=== PATIENT | male | born 1955 | race Caucasian/White ===

== ENCOUNTER → 2017-03-20 11:13 | Outpatient (CLI) | payer SELFPAY ==
--- NOTE | 2017-03-20 12:00 | PET_ITS ---
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 COMPARISON EXAMINATION: CT of the abdomen and pelvis report dated 02/08/17 INDEX LESION SIZE SUV INTERPRETATION Left upper abdomen, gastric fundus, pancreatic body-tail, heterogeneous 55.1 x 59.3-mm (largest) (frame 172) 6.7 (max) Fulfills quantitative criteria for viable neoplasm Right lower posteromedial lung zone 8.9-mm (frame 207) 3.4 Fulfills quantitative criteria for viable neoplasm NON-INDEX LESION SIZE SUV INTERPRETATION Subcarinal mediastinum 1.5 Quantitative criteria for viable neoplasm are not fulfilled Right lateral neck level II-A 2.4 Associated with fatty hilus formation, most consistent with reactive adenopathy TECHNIQUE: Following the intravenous administration of 14.59 mCi of F-18 deoxyglucose via the left antecubital fossa, multiplanar image acquisitions of the neck, chest, abdomen and pelvis to level of mid thigh, obtained at one hour post radiopharmaceutical administration contemporaneously interpreted with the current CT of the neck, chest, abdomen and pelvis to level of mid thigh, dated 03/20/[address] of the abdomen and pelvis report dated 02/08/17 reveal: SERUM GLUCOSE LEVEL: 107 mg/dl. HEIGHT: 72 inches. WEIGHT: 190 lbs. FINDINGS: 1. Heterogeneous enhanced glucose metabolism is manifest in the left upper abdomen which appears to involve the gastric fundus extending caudally to the pancreatic body-tail. The corrected maximum calculated standard uptake value is 6.7. The maximal axial diameter of the corresponding metabolic, morphologic abnormality on review of CT of the abdomen dated 03/20/17 is 55.1-mm (transverse) x 59.3-mm (AP). 2. Focal increased glucose concentration is demonstrated in the right lower posteromedial hemithorax pulmonary parenchyma generating a corrected maximum calculated standard uptake value of 3.4. The maximal axial diameter of the corresponding parenchymal density on review of CT of the thorax dated 03/20/17 is 8.9-mm (transverse). 3. Mild increased glucose concentration appears evident in the subcarinal mediastinum to the right of the midline generating a corrected maximum calculated standard uptake value of 1.5. Quantitative criteria for centrally located thoracic/mediastinal viable neoplasm are not fulfilled. 4. Normal physiologic distribution of the radiopharmaceutical is apparent in the hepatic and splenic parenchyma, both renal units, bladder and visualized intestinal tract. The visualized portion of the cerebral cortex demonstrate symmetric and preserved glucose metabolism. Diffuse radiopharmaceutical concentration is noted in all four quadrants of the abdomen and pelvis. An asymmetric increase in glucose metabolism is manifest in the right lateral neck involving level II-A generating a corrected maximum calculated standard uptake value of 2.4. The corresponding soft tissue density appears to demonstrate fatty hilus formation on review of CT of the neck dated 03/20/17. Pertinent CT findings are as follows. CHEST: There are no parenchymal densities-nodules demonstrated in the right-left hemithorax manifesting quantitatively significant increased glucose metabolism. Bilateral axillary soft tissue densities are ametabolic. Additional mediastinal soft tissue is non-glucose avid. ABDOMEN AND PELVIS: There is atherosclerotic calcification defined in the abdominal aorta without evidence of dilatation-aneurysm formation. Pelvic arterial calcification is observed. Dense calcifications are defined within the prostate gland without evidence of quantitatively significant enhanced glucose metabolism. Subcentimeter bilateral inguinal soft tissue densities are ametabolic. Cortical cyst formation is demonstrated in the left kidney with a maximal axial diameter of 31.7-mm (AP). SKELETAL: Degenerative changes are noted in the cervical, thoracic and lumbar spine. PET/PET/CT Tumor Base -Thigh Init IMPRESSION: 1. ABNORMAL EXAMINATION INDICATIVE OF MALIGNANT VIABLE NEOPLASM. 2. Increased glucose concentration observed in the left upper abdomen extending from the distribution of the gastric fundus caudally to the pancreatic body-tail fulfills quantitative criteria for viable neoplasm. 3. Enhanced glucose concentration observed in the right lower posteromedial lung zone fulfills quantitative criteria for viable neoplasm. (Edwards et al, Annals of Internal Medicine, 138:724, 2003). 4. The mediastinal increase in glucose concentration does not fulfill quantitative criteria for viable neoplasm. 5. Asymmetric increased glucose concentration observed in the right lateral neck involving level IIA associated with fatty hilus formation on review of CT of the neck dated 03/20/17 is most consistent with a component of reactive adenopathy. Electronic Signature Rei Larson D.O. Electronically Signed: Rei Larson DO at 17:17 EST Tel , Service support ,
== END ==
PROVIDERS: Family Provider Family Medicine; PCP Family Medicine
DX: C20 Malignant neoplasm of rectum (principal)
CPT/HCPCS: 78815; 99211; A9552; A4216; G0463

== ENCOUNTER 2017-04-18 13:00 | Inpatient (IN) | payer OTHER, SELFPAY ==
[2017-04-18] VITALS (7 sets, daily range): BP systolic 60–102; BP diastolic 33–77; PULSE 100–128; RESP 13–22; TEMP 36.8–37.4; O2SAT 95–99; BMI 23.7
--- NOTE | 2017-04-18 13:47 | EKG12_ITS ---
Test Reason : Blood Pressure : / mmHG Vent. Rate : 119 BPM Atrial Rate : 119 BPM P-R Int : 126 ms QRS Dur : 088 ms QT Int : 354 ms P-R-T Axes : 080 057 038 degrees QTc Int : 497 ms Sinus tachycardia Nonspecific ST and T wave abnormality Abnormal ECG Confirmed by COLT CHAIREZ, HODA ([id number]), visual effects editor MARIANELA DIAL ([id number]) on 04/19/2017 2:27:43 PM Referred By: GIRISH Confirmed By:HODA GREGORY MD
--- NOTE | 2017-04-18 13:50 | RAD_ITS ---
STUDY: X-RAY CHEST REASON FOR EXAM: Male, 61 years old. Cough. Dehydration. The patient is on chemotherapy. TECHNIQUE: Single AP portable view of the chest. COMPARISON: None. FINDINGS: EKG electrodes are seen. A left-sided portacatheter is in situ. The tip is at the junction of the superior vena cava and right atrium. The lungs are clear and expanded. There is no demonstrated pleural abnormality. Normal size heart. Normal mediastinum and gama. There is prominence of the pulmonary hilar arteries without peripheral pulmonary vascular congestion, suggesting pulmonary hypertension. Normal visualized aortic arch and descending thoracic aorta. Normal visualized thoracic spine. Normal visualized ribs, clavicles, and shoulders. There is no demonstrated abnormality of the visualized soft tissue structures of the upper abdomen. RAD/Chest 1 View (Portable) IMPRESSION: No acute abnormality is seen. Electronically Signed: Kris Britt MD at 14:13 EST Tel [phone], Service support ,
[2017-04-18 14:07] LABS: Absolute Lymphocyte Count 0.52 X10^3/ul (0.83-4.51); Absolute Neutrophil Count 1.1 X10^3/uL (2.0-7.7); Differential Indicated SCAN CRITERIA MET; Eosinophil# 0.01 X10^3/uL; Eosinophils% 0.6 % (0-5); Hematocrit 49.7 % (40-54); Hemoglobin 17.1 g/dl (13.0-16.5); Lymphocyte # 0.52 X10^3/ul (4.0); Lymphocyte % 31.5 % (19-41); Mean Corp Hgb Conc 34.4 g/gl (32-36); Mean Corpuscular Hgb 31.7 pg (27.0-32.0); Mean Corpuscular Volume 92.2 fL (80-94); Neutrophil % 66.7 % (47-70); POSITIVE COUNT NO; POSITIVE DIFFERENTIAL YES; POSITIVE MORPHOLOGY NO; Platelet Count 53 K/mm3 (150-450); RBC Distribution Width CV 13.8 % (11.6-14.6); RBC Distribution Width SD 46.1 fl (35.1-43.9); Red Blood Count 5.39 M/mm3 (4.6-6.2); White Blood Count 1.7 K/mm3 (4.4-11.0)
[2017-04-18] MEDS: 0.9% Normal Saline 1,000 ML IV.SOLN. 3000 ML IV (14:07)
[2017-04-18 14:10] LABS: International Normalized Ratio 1.5; Prothrombin Time (Protime)PT. 17.8 SECONDS (11.7-14.9)
[2017-04-18 14:11] LABS: Partial Thromboplast Time 31.3 Seconds (24.1-36.2)
[2017-04-18 14:13] LABS: Lactic Acid 1.5 mmol/L (0.4-2.0)
[2017-04-18 14:14] LABS: ALB/GLOB Ratio 1.1 RATIO (0.9-2.4); AST(SGOT) 16 U/L (15-37); Alanine Aminotransfer ALT/SGPT 72 U/L (16-61); Albumin, Serum 3.3 g/dL (3.2-5.0); Alkaline Phosphatase 168 U/L (45-117); Anion Gap 10 (5-15); BUN 87 mg/dL (7-18); BUN/Creat Ratio 50.9 RATIO (10-20); Calcium,Total 8.2 mg/dL (8.5-10.1); Chloride 106 mmol/L (98-107); Creatinine, Serum 1.71 mg/dL (0.70-1.30); EST Glomerular Filtration Rate 44 mL/min (>60); Est Glom Filt Rate - Afr Amer 53 mL/min (>60); Estimated Creatinine Clearance 49.54 ml/min; Globulin 3.1 g/dL (2.2-4.2); Glucose 187 mg/dL (74-106); Potassium 4.1 mmol/L (3.5-5.1); Protein, Total 6.4 g/dL (6.4-8.2); Sodium Level 138 mmol/L (136-145)
[2017-04-18] MEDS: fentaNYL 100 MCG/2 ML Ampul 50 MCG IV (15:43)
--- NOTE | 2017-04-18 15:45 | ED.VISSUMM ---
- ER Visit Summary Date of Service: 04/18/17 Chief Complaint: Thrush History of Present Illness: The patient is a 61 M with rectal and pancreatic cancer. He had his first chemo treatment and developed some mouth pain. His oncologist called to notify us that he was coming to the ED. It looks like he has mucositis and oral thrush. He is also not eating or drinking much and there is concern for dehydration. Physical Examination: Blood pressure 60/33. Heart rate 111. Afebrile. Respiratory rate 14 and pulse ox 97% on room air. The patient is sitting upright and appears in no acute distress. Patient has oral erythema and ulceration. He also has white discharge. Tachycardic. Lungs clear. Abdomen soft. Skin otherwise fairly unremarkable. Alert and oriented. Mentating well. Test Results: EKG showed sinus rhythm at a rate of [address] and T-wave changes. Chest x-ray showed no acute findings. White count 1.7 and hemoglobin 17.1. Platelets 53. Glucose 187, BUN 87, creatinine 1.71. Alk phos 168 and ALT 72. INR 1.5 and PTT normal. Troponin normal. Lactate 1.5. Emergency Department Course and Treatment: Patient was treated with fluids, 3 L. He also received Diflucan IV and fentanyl IV. Heart rate is staying in the 110s, but systolic blood pressure is in the 90s and maps have been above 65 since he started fluids. Patient will need admission to the hospital for further care. I spoke with the hospitalist who will admit. Most recent SBP 103 after fluids. Treatment Plan: As above, continue fluids, monitoring, and IV Diflucan Disposition: Admission Impression: 1. Mucositis 2. Oral thrush 3. Dehydration This note was generated with [employer] software. It may contain incorrect words, spelling, and punctuation that were not noted in review of the chart prior to signing ED Disposition - Plan for ED Patient: Chief Complaint: General Illness
--- NOTE | 2017-04-18 15:49 | ED.DCSUM_ITS ---
- ER Visit Summary Date of Service: 04/18/17 Chief Complaint: Thrush History of Present Illness: The patient is a 61 M with rectal and pancreatic cancer. He had his first chemo treatment and developed some mouth pain. His oncologist called to notify us that he was coming to the ED. It looks like he has mucositis and oral thrush. He is also not eating or drinking much and there is concern for dehydration. Physical Examination: Blood pressure 60/33. Heart rate 111. Afebrile. Respiratory rate 14 and pulse ox 97% on room air. The patient is sitting upright and appears in no acute distress. Patient has oral erythema and ulceration. He also has white discharge. Tachycardic. Lungs clear. Abdomen soft. Skin otherwise fairly unremarkable. Alert and oriented. Mentating well. Test Results: EKG showed sinus rhythm at a rate of [address] and T -wave changes. Chest x-ray showed no acute findings. White count 1.7 and hemoglobin 17.1. Platelets 53. Glucose 187, BUN 87, creatinine 1.71. Alk phos 168 and ALT 72. INR 1.5 and PTT normal. Troponin normal. Lactate 1.5. Emergency Department Course and Treatment: Patient was treated with fluids, 3 L. He also received Diflucan IV and fentanyl IV. Heart rate is staying in the 110s, but systolic blood pressure is in the 90s and maps have been above 65 since he started fluids. Patient will need admission to the hospital for further care. I spoke with the hospitalist who will admit. Most recent SBP 103 after fluids. Treatment Plan: As above, continue fluids, monitoring, and IV Diflucan Disposition: Admission Impression: 1. Mucositis 2. Oral thrush 3. Dehydration This note was generated with [employer] software. It may contain incorrect words, spelling, and punctuation that were not noted in review of the chart prior to signing ED Disposition - Plan for ED Patient: Chief Complaint: General Illness
--- NOTE | 2017-04-18 16:21 | ECHOCS_ITS ---
Reason For Study: Arrhythmia Procedure This was a 2D Doppler, Color Flow transthoracic echocardiogram. The study was technically limited. The study was technically difficult. Exam performed portable in ICU/CCU. Left Ventricle Normal size and thickness. The estimated ejection fraction is 60 %. Septal motion consistent with IVCD. No regional wall motion abnormalities noted. Right Ventricle Normal size and thickness. Normal systolic function. Atria Normal left atrium. Normal right atrium. Normal atrial septum. Mitral Valve The mitral valve is structurally normal. No prolapse or stenosis seen. Tricuspid Valve Normal tricuspid valve. Unable to estimate RV systolic pressure/pulmonary artery pressure due to technically difficult study. Aortic Valve Normal aortic valve. Trisinus/trileaflet aortic valve. Pulmonic Valve Normal pulmonic valve. Great Vessels Normal aortic root. Normal arch. Normal inferior vena cava. Inferior vena cava collapse with sniff. Pericardium/Pleural No pericardial effusion. Medication Definity0.3ml given slow IV push to enhance endocardial definition. MMode/2D Measurements & Calculations RVDd: 2.9 cm Ao root diam: 3.2 cm LAV(MOD-sp4): 16.7 ml LA A4 area: 10.4 cm2 RA A4 area: 12.7 cm2 Doppler Measurements & Calculations MV E max naveed: 58.5 cm/sec Lat Peak E' Naveed: 11.4 cm/sec Med Peak E' Naveed: 5.9 cm/sec MV A max naveed: 100.4 cm/sec E/E' lat: 5.1 E/E' med: 10.0 MV E/A: 0.58 Ao V2 max: 110.0 cm/sec LV V1 max: 77.4 cm/sec Ao max P.8 mmHg LV V1 max P.4 mmHg Interpretation Summary The estimated ejection fraction is 60 %. Unable to estimate RV systolic pressure/pulmonary artery pressure due to technically difficult study. The study was technically difficult. Contrast injection was performed. There is no comparison study available. Ordering Physician: Andrade Blount Referring Physician: JENN DIAZ Performed By: Sandee Guerin RDCS
--- NOTE | 2017-04-18 16:26 | HP.PCM_ITS ---
<Andrade Blount - Last Filed: 04/18/17 16:15> Problem List (1) Sepsis Status: Acute (2) Thrush of mouth and esophagus Status: Acute (3) AURELIA (acute kidney injury) Status: Acute (4) Neutropenia Status: Chronic (5) Pancreatic cancer Status: Chronic (6) Thrombocytopenia Status: Chronic (7) Rectal cancer Status: Chronic History of Present Illness Date of Admission: 04/18/17 Chief Complaint: Mouth pain The patient is a 61 year old M with a hx of pancreatic and rectal cancer, pt of Doctor Bobby s/p first chemo session on 04/10 who subsequently went home and developed mouth pain the following day. He had started taking nystatin orally with no relief. The pain is in both his mouth and throat, has severely worsened to the point where he cannot swallow and cannot eat or drink 2/2 pain. He has heavy mucus production and is spitting frequently. He denies fevers or chills. He denies Nausea, vomiting, or abdominal pain, he has had several episodes of diarrhea. He has tachycardia, but denies palp and denies any underlying heart disease. He has no SOB or cough. He was hypotensive at presentation which seems to have improved with IV fluids administration. He also has AURELIA and denies hx of Renal dz. [] Past Medical History Past Medical History (Chronic Problems): Chronic Problems Neutropenia (Chronic) Pancreatic cancer (Chronic) Thrombocytopenia (Chronic) Rectal cancer (Chronic) Allergies No Known Allergies Allergy (Verified 04/18/17 13:42) Home Medications: Ambulatory Orders Medication Instructions Recorded Acetaminophen [Tylenol Extra 1,000 mg PO Q6H PRN 04/18/17 Strength] Docusate Sodium [Colace] 100 mg PO BID PRN PRN 04/18/17 Nystatin 5 ml PO 4X/DAY PRN 04/18/17 Olanzapine [Zyprexa] 10 mg PO QHS 04/18/17 Ondansetron HCl [Zofran] 4 mg PO Q8H PRN PRN 04/18/17 Oxycodone [Oxyir] 1 - 2 tab PO Q4H PRN PRN 04/18/17 Surgical History: - - childhood surgery for undescended testicle. Psychiatric History: Depression Lives: Spouse/ Significant Other Smoking Status: Former smoker Tobacco Use: Non-smoker Alcohol: None Drugs: None - *Family History Maternal History Items: Cancer Sibling History Items: Cancer - x 2 sisters and a brother Review of Systems Constitutional: Reports: Weakness. Denies: Chills, Fever, Weight Change HEENT: Reports: Difficulty Swallowing, - - mouth pain, mouth mucus production, throat pain, painful swallowing.. Denies: Head Aches, Sinus Congestion, Sinus Drainage Cardiovascular: Denies: Chest Pain, Palpitations Respiratory: Denies: Cough, Shortness of breath at rest, Sputum production Gastrointestinal: Denies: Abdominal Pain, Nausea, Vomiting Genitourinary: Denies: Dysuria Musculoskeletal: Denies: Joint Pain, Joint Tenderness Skin: Denies: Rash, Wounds Neurological: Denies: Numbness, Tingling, Focal weakness Psychiatric: Denies: Anxiety, Depression, Homicidal Ideations, Suicidal Ideations Hematologic/ Lymphatic: Denies: Easy Bruising, Easy Bleeding VTE Information - Inpt Only VTE Present on Admission: No VTE Mechan Device Prophylaxis: SCD's VTE Pharm Prophylaxis ordered?: No Reason prophylaxis not ordered:: Medical Contraindication Patient Problems: Active and Suspected Problems Sepsis (Acute) Thrush of mouth and esophagus (Acute) AURELIA (acute kidney injury) (Acute) - Physical Exam General: Alert, Oriented x3, Cooperative HEENT: Atraumatic, PERRLA, EOMI, Normocephalic Oral: Ulcerations Present - beefy erythematous rash, white plaques, moist. Neck: Supple, No JVD, Negative Carotid Bruits Lungs: Clear to auscultation, Normal air movement Cardiovascular: Regular rate, No murmurs Abdomen: Bowel Sounds Present, Soft, Non Tender Extremities: No edema, Capillary Refill Less than 3 Seconds Skin: No rashes, No breakdown Musculoskeletal: No Tenderness to Palpation of Joints or Extremities Neurological: Cranial nerves II-XII grossly intact Psych/Mental Status: Normal Affect, Appropriate, Alert and oriented to time, place, person, mood and affect Vital Signs Temp Pulse Resp BP Pulse Ox 98.2 F 115 H 18 91/77 99 04/18/17 13:01 04/18/17 15:21 04/18/17 15:21 04/18/17 15:21 04/18/17 14:08 Oxygen Flow Rate 2 Oxygen Delivery Method Room Air Weight: 77.111 kg Body Mass Index (BMI) 23.7 Laboratory Tests Past 24 Hrs 04/18/17 04/18/17 04/18/17 13:30 13:30 13:30 WBC 1.7 L RBC 5.39 Hgb 17.1 H Hct 49.7 MCV 92.2 MCH 31.7 MCHC 34.4 RDW 13.8 RDW Differential 46.1 H Plt Count 53 L MPV 11.0 Immature Gran % (Auto) 1.200 H Neut % (Auto) 66.7 Lymph % (Auto) 31.5 Barren % (Auto) 0.0 Eos % (Auto) 0.6 Baso % (Auto) 0.0 Absolute Neuts (auto) 1.1 L Absolute Lymphs (auto) 0.52 L Total Counted Not Reportable Differential Comment COMMENT Diff Path Review June foll PT 17.8 H INR 1.5 APTT 31.3 Sodium 138 Potassium 4.1 Chloride 106 Carbon Dioxide 22.0 Anion Gap 10 BUN 87 H Creatinine 1.71 H Estim Creat Clear Calc 49.54 Est GFR (MDRD) Af Amer 53 L Est GFR (MDRD) Non-Af 44 L BUN/Creatinine Ratio 50.9 H Glucose 187 H Lactic Acid Calcium 8.2 L Total Bilirubin 0.90 AST 16 ALT 72 H Alkaline Phosphatase 168 H Troponin I < 0.02 Total Protein 6.4 Albumin 3.3 Globulin 3.1 Albumin/Globulin Ratio 1.1 04/18/17 13:30 WBC RBC Hgb Hct MCV MCH MCHC RDW RDW Differential Plt Count MPV Immature Gran % (Auto) Neut % (Auto) Lymph % (Auto) Barren % (Auto) Eos % (Auto) Baso % (Auto) Absolute Neuts (auto) Absolute Lymphs (auto) Total Counted Differential Comment Diff Path Review PT INR APTT Sodium Potassium Chloride Carbon Dioxide Anion Gap BUN Creatinine Estim Creat Clear Calc Est GFR (MDRD) Af Amer Est GFR (MDRD) Non-Af BUN/Creatinine Ratio Glucose Lactic Acid 1.5 Calcium Total Bilirubin AST ALT Alkaline Phosphatase Troponin I Total Protein Albumin Globulin Albumin/Globulin Ratio Assessment/Plan Active and Suspected Problems Sepsis (Acute) Thrush of mouth and esophagus (Acute) AURELIA (acute kidney injury) (Acute) 1. Neutropenic sepsis 2/2 oral and esophageal thrush - continue nystatin and diflucan. Add BMX solution. ID consult. Afebrile. Leukopenic/Neutropenic. Tachycardic. Hypotensive at presentation which responded to fluid resuscitation. Check echo in AM. EKG sinus tach. Trop neg. Lactate neg. Blood cultures pending. 2. AURELIA - IV fluids. dehydrated. Not eating or drinking 2/2 throat pain. 3. Neutropenia - 2/2 chemo add neutropenic precautions. Abs neutos 1.1. WBC 1.7. 4. Pancreatic / Rectal cancer s/p 1st round chemo with Dr. Rosales on 04/10. Consult to Dr. Rosales. 5. Thrombocytopenia 2/2 chemo - avoid heparin products 6. Depression - on zyprexa DVT ppx: SCDs This patient was seen by Andrade Blount PA-C under the supervision of Doctor Francisco. <Tia Singh - Last Filed: 04/18/17 17:19> History of Present Illness The patient is a 61 year old M [] Past Medical History Allergies No Known Allergies Allergy (Verified 04/18/17 13:42) - Physical Exam Vital Signs Temp Pulse Resp BP Pulse Ox 98.2 F 115 H 18 91/77 99 04/18/17 13:01 04/18/17 15:21 04/18/17 15:21 04/18/17 15:21 04/18/17 14:08 Assessment/Plan This patient was seen in conjunction with NAJMA Ashford. I have independently interviewed and examined the patient and reviewed pertinent historical, laboratory, and other data. Please refer to NAJMA Ashford note for his patient's presentation, findings, and recommendations. I have reviewed and his note and concur. Patient comes in with complaints of pain on swallowing, status post chemotherapy in 10 April, denies any fever or chills, follows Dr. Rosales in the outpatient Physical Exam: Gen: Looks in some discomfort, not pale, not jaundiced, sores on the face EENT: Erythema of oral mucosa with oropharyngeal candidal plaques especially on the roof of the tongue CVS:HS I +II, regular,tachycardic RESP: Diminished at lung bases GI: Full, soft, nontender, no ballotable organs EXT:No edema ASSESSMENT: 1. Neutropenic sepsis 2. Oral mucositis/oropharyngeal thrush 3. AURELIA secondary to dehydration 4. Thrombocytopenia secondary to chemotherapy 5. Pancreatic and rectal cancer 6. Depression Plan: Admitted to Medsurg floor, pain control, IV fluids, IV Diflucan, nystatin swish and swallow, oncology consult, ID consult Zyprexa in the light of neutropenia/pancytopenia Code Visit Inpatient E&M: 95851 Init Hosp L3
[2017-04-18] MEDS: 0.9% Normal Saline 1,000 ML 1000 ML IV (17:40)
[2017-04-18] MEDS: 0.9% Normal Saline 1,000 ML 125 ML IV (18:49)
[2017-04-19] VITALS (28 sets, daily range): BP systolic 76–129; BP diastolic 55–84; PULSE 117–131; RESP 15–26; TEMP 36.6–38; O2SAT 96–100
[2017-04-19] MEDS: 0.9% Normal Saline 1,000 ML 125 ML IV (03:51)
[2017-04-19] MEDS: 0.9% Normal Saline 1,000 ML 999 ML IV (04:20)
[2017-04-19] MEDS: 0.9% Normal Saline 1,000 ML 250 ML IV ×2 (05:21→09:20)
[2017-04-19 06:57] LABS: Absolute Lymphocyte Count 0.27 X10^3/ul (0.83-4.51); Hematocrit 43.4 % (40-54); Hemoglobin 14.9 g/dl (13.0-16.5); Lymphocyte # 0.27 X10^3/ul (4.0); Lymphocyte % 81.8 % (19-41); Mean Corp Hgb Conc 34.3 g/gl (32-36); Mean Corpuscular Hgb 31.4 pg (27.0-32.0); Mean Corpuscular Volume 91.6 fL (80-94); Mean Platelet Vol. 12.2 fl (6.2-12.0); Monocyte# 0.02 X10^3/uL; Monocyte% 6.1 % (0-10); Neutrophil # 0.04 X10^3/uL (2.7-7.7); Neutrophil % 12.1 % (47-70); RBC Distribution Width CV 13.9 % (11.6-14.6); RBC Distribution Width SD 46.3 fl (35.1-43.9); Red Blood Count 4.74 M/mm3 (4.6-6.2)
[2017-04-19 07:00] LABS: Differential Indicated SCAN CRITERIA MET; POSITIVE COUNT YES; POSITIVE DIFFERENTIAL YES; POSITIVE MORPHOLOGY YES; Platelet Count 34 K/mm3 (150-450); White Blood Count 0.3 K/mm3 (4.4-11.0)
[2017-04-19 07:10] LABS: Anion Gap 11 (5-15); BUN 55 mg/dL (7-18); BUN/Creat Ratio 59.3 RATIO (10-20); Calcium,Total 7.4 mg/dL (8.5-10.1); Chloride 117 mmol/L (98-107); Creatinine, Serum 0.93 mg/dL (0.70-1.30); EST Glomerular Filtration Rate 89 mL/min (>60); Est Glom Filt Rate - Afr Amer 107 mL/min (>60); Estimated Creatinine Clearance 91.09 ml/min; Glucose 163 mg/dL (74-106); Sodium Level 146 mmol/L (136-145)
[2017-04-19 09:20] LABS: Hemoglobin A1c 6.4 % (4.2-6.3)
[2017-04-19 09:21] LABS: Magnesium 2.7 mg/dL (1.6-2.6)
[2017-04-19 09:27] LABS: Mucous, Urine 0 SEEN /hpf (<or=2+); Squamous Epithelial Cells - UA 0 SEEN /hpf (0-5); White Blood Cells 0 SEEN /hpf (0-5)
--- NOTE | 2017-04-19 09:31 | CON.PCM_ITS ---
Reason for Consult Date of Consultation: 04/19/17 Reason for Consultation: Sepsis/neutropenic fever History of Present Illness: The patient is a 61-year-old male, with a history as outlined below, who presented to the emergency department at the urging of his oncologist over concern for mucositis and oropharyngeal thrush. The patient has a history of rectal and pancreatic cancer. He is currently followed by Dr. Rosales of [facility]. The patient just received a chemotherapy treatment approximately 1 week ago and subsequently went on to develop mouth sores. The patient since that time has reported the presence of both dysphagia and odynophagia. He also recently had several episodes of diarrhea. On presentation to the emergency department, the patient was noted to be tachycardic, hypotensive, but was maintaining appropriate oxygen saturations initially on room air. Laboratory evaluation revealed a white blood cell count of 1700. Coagulation profile is within normal limits. Chemistry profile was notable for acute kidney injury with a creatinine 1.71. Serum lactate was normal at 1.5. Initial plain film chest x-ray revealed no acute cardiopulmonary process. The patient was initially started on Diflucan, nystatin and meropenem. He did receive overzealous fluid hydration. He was initially maintained on the general medical floor. However, on the morning of April 19, the patient was noted to be persistently hypotensive, despite aggressive fluid resuscitation. Therefore, he was transferred to the medical intensive care unit for ongoing management. Past Medical History Past Medical History (Chronic Problems): Chronic Problems Neutropenia (Chronic) Pancreatic cancer (Chronic) Thrombocytopenia (Chronic) Rectal cancer (Chronic) Allergies No Known Allergies Allergy (Verified 04/18/17 13:42) Home Medications: Ambulatory Orders Medication Instructions Recorded Acetaminophen [Tylenol Extra 1,000 mg PO Q6H PRN 04/18/17 Strength] Docusate Sodium [Colace] 100 mg PO BID PRN PRN 04/18/17 Nystatin 5 ml PO 4X/DAY PRN 04/18/17 Olanzapine [Zyprexa] 10 mg PO QHS 04/18/17 Ondansetron HCl [Zofran] 4 mg PO Q8H PRN PRN 04/18/17 Oxycodone [Oxyir] 1 - 2 tab PO Q4H PRN PRN 04/18/17 Surgical History: - - childhood surgery for undescended testicle. Psychiatric History: Depression Lives: Spouse/ Significant Other Smoking Status: Former smoker Tobacco Use: Non-smoker Alcohol: None Drugs: None - *Family History Maternal History Items: Cancer Sibling History Items: Cancer - x 2 sisters and a brother Review of Systems Constitutional: Reports: Fever Eyes: Denies: Blurred vision, Double vision HEENT: Reports: Difficulty Swallowing Cardiovascular: Denies: Chest Pain, Palpitations Respiratory: Denies: Cough, Shortness of breath at rest, Sputum production Gastrointestinal: Reports: Diarrhea Genitourinary: Denies: Dysuria Musculoskeletal: Denies: Joint Pain, Joint Tenderness Skin: Denies: Rash, Wounds Neurological: Denies: Numbness, Tingling, Focal weakness Psychiatric: Denies: Anxiety, Depression, Homicidal Ideations, Suicidal Ideations Hematologic/ Lymphatic: Denies: Easy Bruising, Easy Bleeding Patient Problems: Active and Suspected Problems Sepsis (Acute) Thrush of mouth and esophagus (Acute) AURELIA (acute kidney injury) (Acute) Objective: The patient's most recent lab work, culture data and imaging studies have all been personally reviewed. Blood and urine cultures are pending. C. difficile is pending. Surface echocardiogram revealed normal LV size and thickness with an ejection fraction of 60%. - Physical Exam General: Alert, Cooperative, - - is present at the bedside. HEENT: Atraumatic, PERRLA, Normocephalic Oral: Ulcerations Present, - - Mucositis/thrush present Neck: Supple, No Nodes, Trachea Midline Lungs: Normal air movement, No rhonchi, No wheeze, No rales, - - Chest wall port in place Cardiovascular: Regular rate, Regular Rhythm, Normal S1, Normal S2, No murmurs Abdomen: Bowel Sounds Present, Soft, Non Tender Extremities: No clubbing, No cyanosis, No edema Skin: No rashes, No breakdown Musculoskeletal: No Tenderness to Palpation of Joints or Extremities Neurological: Neuro grossly intact Psych/Mental Status: Normal Affect, Appropriate Vital Signs Temp Pulse Resp BP Pulse Ox 97.9 F 120 H 16 84/55 L 100 04/19/17 08:21 04/19/17 08:26 04/19/17 08:21 04/19/17 08:21 04/19/17 08:26 Oxygen Delivery Method Room Air Weight: 172 lb 13.478 oz Body Mass Index (BMI) 23.7 Intake and Output for Last 24 Hours 04/17/17 04/18/17 04/19/17 23:59 23:59 23:59 Intake Total 3643 / 3643 Balance 3643 / 3643 Laboratory Tests Past 24 Hrs 04/19/17 04/19/17 04/19/17 05:56 05:56 05:56 WBC 0.3 L* RBC 4.74 Hgb 14.9 Hct 43.4 MCV 91.6 MCH 31.4 MCHC 34.3 RDW 13.9 RDW Differential 46.3 H Plt Count 34 L* MPV 12.2 H Immature Gran % (Auto) 0.000 Neut % (Auto) 12.1 L Lymph % (Auto) 81.8 H [place] % (Auto) 6.1 Eos % (Auto) 0.0 Baso % (Auto) 0.0 Absolute Neuts (auto) 0.0 L Absolute Lymphs (auto) 0.27 L Total Counted Not Reportable Differential Comment Diff Path Review May foll Sodium 146 H Potassium 4.0 Chloride 117 H Carbon Dioxide 18.0 L Anion Gap 11 BUN 55 H Creatinine 0.93 Estim Creat Clear Calc 91.09 Est GFR (MDRD) Af Amer 107 Est GFR (MDRD) Non-Af 89 BUN/Creatinine Ratio 59.3 H Glucose 163 H Hemoglobin A1c 6.4 H Calcium 7.4 L Phosphorus Magnesium Urine Color Urine Clarity Urine pH Ur Specific [place] Urine Protein Urine Glucose (UA) Urine Ketones Urine Occult Blood Urine Nitrite Urine Bilirubin Urine Urobilinogen Ur Leukocyte Esterase Urine RBC Urine WBC Ur Squamous Epith Cells Urine Bacteria Urine Mucus 04/19/17 04/19/17 04/19/17 05:56 05:56 09:15 WBC RBC Hgb Hct MCV MCH MCHC RDW RDW Differential Plt Count MPV Immature Gran % (Auto) Neut % (Auto) Lymph % (Auto) [place] % (Auto) Eos % (Auto) Baso % (Auto) Absolute Neuts (auto) Absolute Lymphs (auto) Total Counted Differential Comment Diff Path Review Sodium Potassium Chloride Carbon Dioxide Anion Gap BUN Creatinine Estim Creat Clear Calc Est GFR (MDRD) Af Amer Est GFR (MDRD) Non-Af BUN/Creatinine Ratio Glucose Hemoglobin A1c Calcium Phosphorus 2.0 L Magnesium 2.7 H Urine Color Pending Urine Clarity Pending Urine pH Pending Ur Specific [place] Pending Urine Protein Pending Urine Glucose (UA) Pending Urine Ketones Pending Urine Occult Blood Pending Urine Nitrite Pending Urine Bilirubin Pending Urine Urobilinogen Pending Ur Leukocyte Esterase Pending Urine RBC Pending Urine WBC Pending Ur Squamous Epith Cells Pending Urine Bacteria Pending Urine Mucus Pending Clinical Impression(s) from Imaging Studies Chest X-Ray 04/18/17 13:50 IMPRESSION: No acute abnormality is seen. Electronically Signed: Kris Britt MD at 14:13 EST Tel [phone], Service support , Assessment/Plan Active and Suspected Problems Sepsis (Acute) Thrush of mouth and esophagus (Acute) AURELIA (acute kidney injury) (Acute) RECOMMENDATIONS: 1. Continue antibiotics per ID recommendations. 2. Discontinue supplemental IV fluids. The patient has been more than adequately volume resuscitated. 3. If hypotension persists, recommend initiation of Levophed to maintain a mean arterial pressure at or above 65 mmHg. 4. Await oncology input 5. Patient to remain n.p.o. for now IMPRESSIONS: 1. Severe sepsis/neutropenic fever The patient recently received chemotherapy. He currently reports the presence of dysphasia and odynophagia. Continue broad-spectrum antibiotics per infectious disease recommendations, pending infectious workup. Blood, urine and C. difficile PCR pending. Discontinue supplemental IV fluids, as the patient has been more than adequately volume resuscitated and is currently hemodynamically stable. If the patient does become hypotensive, recommend initiation of Levophed to maintain a mean arterial pressure at or above 65 mmHg. Patient to remain n.p.o. for now. 2. Acute kidney injury, likely prerenal in etiology Improved following IV fluid hydration. Urine output is appropriate. No indication for renal replacement therapy at this time. 3. Personal history of pancreatic/rectal cancer/thrombocytopenia/depression Complicates care, management, recovery and prognosis. No active blood loss identified. Therefore, no indication for platelet transfusion. Continue to monitor accordingly. This note was generated with [employer] software. It may contain incorrect words, spelling, and punctuation that were not noted in checking the note before signing. Code Visit Inpatient E&M: 83701 Init Hosp L3
[2017-04-19 09:34] LABS: Color, Urine Yellow (Yellow); Glucose, Dipstick Normal (Normal); Ketone-Dipstick Negative (Negative); Leukocyte Esterase-Dipstick Negative /ul (Negative); Nitrite-Dipstick Negative (Negative); Occult Blood-Urine 50 /ul (Negative); Protein-Dipstick 30 mg/dl (Negative); Specific Gravity, Urine 1.015 (1.002-1.030); Urine Bilirubin Dipstick Negative (Negative); Urine Clarity Clear (Clear); Urine Urobilinogen Normal (Normal)
[2017-04-19 09:43] LABS: Bacteria RARE /hpf (None Seen); Red Blood Cells-Urine 0-5 SEEN /hpf (0-5)
--- NOTE | 2017-04-19 10:17 | RAD_ITS ---
STUDY: X-RAY CHEST REASON FOR EXAM: Male, 61 years old. Increasing shortness of breath. TECHNIQUE: Single AP portable view of the chest. COMPARISON: Comparison is made with prior study dated April 18, 2017. FINDINGS: A left-sided portacatheter is once again seen. The tip is at the junction of the superior vena cava and right atrium. The lungs are clear and expanded. There is no demonstrated pleural abnormality. Normal size heart. Normal mediastinum and gama. There is prominence of the pulmonary hilar arteries without peripheral pulmonary vascular congestion, suggesting pulmonary hypertension. Normal visualized aortic arch and descending thoracic aorta. There are degenerative changes of the visualized thoracic spine. Normal visualized ribs, clavicles, and shoulders. There is no demonstrated abnormality of the visualized soft tissue structures of the upper abdomen. RAD/Chest 1 View (Portable) IMPRESSION: No acute abnormality is seen. Electronically Signed: Kris Britt MD at 10:56 EST Tel [phone], Service support ,
[2017-04-19] MEDS: 0.9% NaCl Peripheral Flush Adult/Peds IV (10:32)
[2017-04-19 11:07] LABS: Lactic Acid 1.1 mmol/L (0.4-2.0)
--- NOTE | 2017-04-19 11:10 | CON.PCM_ITS ---
Problem List (1) Neutropenia Status: Chronic Reason for Consult: neutropenic fever Consulted by: Dr. Persaud History of Present Illness: The patient is a 61 year old M on chemo for pancreatic and rectal cancer. Last chemo was just over a week ago, developed mouth sores and pain 2-3 days later. Difficulty taking po and managing secretions. Over past 2 days, has also developed diarrhea, about 3-5 episodes per day. No recent abx, no h/o cdiff. No abd pain, no blood in stool. No cough/sob/dysuria/rash/myalgias. No issues with port. Came to ED, found to be neutropenic, started on fluconazole for mucositis, had temp to 100.4, and meropenem added. Mouth not feeling much better this AM. Full ROS performed and neg except as noted above. - Medical History Past Medical History (Chronic Problems): Chronic Problems Neutropenia (Chronic) Pancreatic cancer (Chronic) Thrombocytopenia (Chronic) Rectal cancer (Chronic) Allergies/Adverse Reactions: Allergies No Known Allergies Allergy (Verified 04/18/17 13:42) Home Medications: Ambulatory Orders Medication Instructions Recorded Acetaminophen [Tylenol Extra 1,000 mg PO Q6H PRN 04/18/17 Strength] Docusate Sodium [Colace] 100 mg PO BID PRN PRN 04/18/17 Nystatin 5 ml PO 4X/DAY PRN 04/18/17 Olanzapine [Zyprexa] 10 mg PO QHS 04/18/17 Ondansetron HCl [Zofran] 4 mg PO Q8H PRN PRN 04/18/17 Oxycodone [Oxyir] 1 - 2 tab PO Q4H PRN PRN 04/18/17 - Social History SMOKING STATUS:: Former smoker Vital Signs Temp Pulse Resp BP Pulse Ox 98.5 F 131 H 26 H 94/70 98 04/19/17 09:45 04/19/17 11:00 04/19/17 11:00 04/19/17 11:00 04/19/17 11:00 Oxygen Delivery Method Room Air Weight: 78.4 kg Body Mass Index (BMI) 23.7 Laboratory Tests Past 24 Hrs 04/19/17 04/19/17 04/19/17 05:56 05:56 05:56 WBC 0.3 L* RBC 4.74 Hgb 14.9 Hct 43.4 MCV 91.6 MCH 31.4 MCHC 34.3 RDW 13.9 RDW Differential 46.3 H Plt Count 34 L* MPV 12.2 H Immature Gran % (Auto) 0.000 Neut % (Auto) 12.1 L Lymph % (Auto) 81.8 H [place] % (Auto) 6.1 Eos % (Auto) 0.0 Baso % (Auto) 0.0 Absolute Neuts (auto) 0.0 L Absolute Lymphs (auto) 0.27 L Total Counted Not Reportable Differential Comment Diff Path Review May foll Sodium 146 H Potassium 4.0 Chloride 117 H Carbon Dioxide 18.0 L Anion Gap 11 BUN 55 H Creatinine 0.93 Estim Creat Clear Calc 91.09 Est GFR (MDRD) Af Amer 107 Est GFR (MDRD) Non-Af 89 BUN/Creatinine Ratio 59.3 H Glucose 163 H Hemoglobin A1c 6.4 H Lactic Acid Calcium 7.4 L Phosphorus Magnesium Urine Color Urine Clarity Urine pH Ur Specific [place] Urine Protein Urine Glucose (UA) Urine Ketones Urine Occult Blood Urine Nitrite Urine Bilirubin Urine Urobilinogen Ur Leukocyte Esterase Urine RBC Urine WBC Ur Squamous Epith Cells Urine Bacteria Urine Mucus 04/19/17 04/19/17 04/19/17 05:56 05:56 09:15 WBC RBC Hgb Hct MCV MCH MCHC RDW RDW Differential Plt Count MPV Immature Gran % (Auto) Neut % (Auto) Lymph % (Auto) [place] % (Auto) Eos % (Auto) Baso % (Auto) Absolute Neuts (auto) Absolute Lymphs (auto) Total Counted Differential Comment Diff Path Review Sodium Potassium Chloride Carbon Dioxide Anion Gap BUN Creatinine Estim Creat Clear Calc Est GFR (MDRD) Af Amer Est GFR (MDRD) Non-Af BUN/Creatinine Ratio Glucose Hemoglobin A1c Lactic Acid Calcium Phosphorus 2.0 L Magnesium 2.7 H Urine Color Yellow Urine Clarity Clear Urine pH 6.0 Ur Specific [place] 1.015 Urine Protein 30 H Urine Glucose (UA) Normal Urine Ketones Negative Urine Occult Blood 50 H Urine Nitrite Negative Urine Bilirubin Negative Urine Urobilinogen Normal Ur Leukocyte Esterase Negative Urine RBC 0-5 SEEN Urine WBC 0 SEEN Ur Squamous Epith Cells 0 SEEN Urine Bacteria RARE Urine Mucus 0 SEEN 04/19/17 10:25 WBC RBC Hgb Hct MCV MCH MCHC RDW RDW Differential Plt Count MPV Immature Gran % (Auto) Neut % (Auto) Lymph % (Auto) [place] % (Auto) Eos % (Auto) Baso % (Auto) Absolute Neuts (auto) Absolute Lymphs (auto) Total Counted Differential Comment Diff Path Review Sodium Potassium Chloride Carbon Dioxide Anion Gap BUN Creatinine Estim Creat Clear Calc Est GFR (MDRD) Af Amer Est GFR (MDRD) Non-Af BUN/Creatinine Ratio Glucose Hemoglobin A1c Lactic Acid Pending Calcium Phosphorus Magnesium Urine Color Urine Clarity Urine pH Ur Specific [place] Urine Protein Urine Glucose (UA) Urine Ketones Urine Occult Blood Urine Nitrite Urine Bilirubin Urine Urobilinogen Ur Leukocyte Esterase Urine RBC Urine WBC Ur Squamous Epith Cells Urine Bacteria Urine Mucus - Other Studies Radiology: [] reviewed Other Studies: [] Route of nutrition/ use of supplements: [] Nutritional Intake: [] IV Site: [] Morgan Catheter: [] - Physical Exam General: Alert, Oriented x3, Cooperative, - - ill appearing HEENT: Atraumatic, - - diffuse mucositis Neck: Supple, No Nodes Lungs: Clear to auscultation, Normal air movement Cardiovascular: No murmurs, Tachycardic Abdomen: Bowel Sounds Present, Soft, Non Tender, Non-Distended Extremities: No edema Skin: No rashes IV Site: Central Line, without redness Musculoskeletal: No Tenderness to Palpation of Joints or Extremities Neurological: Cranial nerves II-XII grossly intact - Assessment/Plan Antibiotics: [] Assessment/Plan: [] Active and Suspected Problems Sepsis (Acute) Thrush of mouth and esophagus (Acute) AURELIA (acute kidney injury) (Acute) Neutropenic fever with thrush and recent chemo. Port in place, so will add vanc while cxs pending. AURELIA improved. On fluconazole and nystatin for thrush/ mucositis. Cont empiric meropenem. Given diarrhea, will check cdiff. Thank you, will follow, d/w nursing.
--- NOTE | 2017-04-19 12:09 | PCM.PROGNOTE ---
Patient Problems: Active and Suspected Problems Sepsis (Acute) Thrush of mouth and esophagus (Acute) AURELIA (acute kidney injury) (Acute) Subjective: Patient continues to have significant mouth discomfort and mucus production spitting frequently. No nausea or vomiting. He does not feel any subjective fevers or chills. He has had low blood pressure overnight and does have dizziness. He is going to attempt to eat today as a medical mouthwash has improved his oral pain a little bit. He will be transferred to the ICU today as he is remained hypotensive after 6 L of fluid overnight. He did develop a fever overnight as well. No shortness of breath or cough at this time. No abdominal pain, he does continue to have diarrhea this morning. - Physical Exam General: Alert, Oriented x3, Cooperative HEENT: Atraumatic, PERRLA, EOMI, Normocephalic Oral: Ulcerations Present - mucosal lesions, white on beefy red base. COpious mucous production, spitting frequently Neck: Supple, No JVD, Negative Carotid Bruits Lungs: Clear to auscultation, Normal air movement Cardiovascular: Regular rate, No murmurs Abdomen: Bowel Sounds Present, Soft, Non Tender Extremities: No edema, Capillary Refill Less than 3 Seconds Skin: No rashes, No breakdown Musculoskeletal: No Tenderness to Palpation of Joints or Extremities Neurological: Cranial nerves II-XII grossly intact Psych/Mental Status: Normal Affect, Appropriate, Alert and oriented to time, place, person, mood and affect Vital Signs Temp Pulse Resp BP Pulse Ox 98.5 F 131 H 26 H 94/70 98 04/19/17 09:45 04/19/17 11:00 04/19/17 11:00 04/19/17 11:00 04/19/17 11:00 Oxygen Delivery Method Room Air Weight: 80.5 kg Body Mass Index (BMI) 23.7 Intake and Output for Last 24 Hours 04/17/17 04/18/17 04/19/17 23:59 23:59 23:59 Intake Total 3643 / 3643 Balance 3643 / 3643 Laboratory Tests Past 24 Hrs 04/19/17 04/19/17 04/19/17 05:56 05:56 05:56 WBC 0.3 L* RBC 4.74 Hgb 14.9 Hct 43.4 MCV 91.6 MCH 31.4 MCHC 34.3 RDW 13.9 RDW Differential 46.3 H Plt Count 34 L* MPV 12.2 H Immature Gran % (Auto) 0.000 Neut % (Auto) 12.1 L Lymph % (Auto) 81.8 H [place] % (Auto) 6.1 Eos % (Auto) 0.0 Baso % (Auto) 0.0 Absolute Neuts (auto) 0.0 L Absolute Lymphs (auto) 0.27 L Total Counted Not Reportable Differential Comment Diff Path Review May foll Sodium 146 H Potassium 4.0 Chloride 117 H Carbon Dioxide 18.0 L Anion Gap 11 BUN 55 H Creatinine 0.93 Estim Creat Clear Calc 91.09 Est GFR (MDRD) Af Amer 107 Est GFR (MDRD) Non-Af 89 BUN/Creatinine Ratio 59.3 H Glucose 163 H Hemoglobin A1c 6.4 H Lactic Acid Calcium 7.4 L Phosphorus Magnesium Urine Color Urine Clarity Urine pH Ur Specific [place] Urine Protein Urine Glucose (UA) Urine Ketones Urine Occult Blood Urine Nitrite Urine Bilirubin Urine Urobilinogen Ur Leukocyte Esterase Urine RBC Urine WBC Ur Squamous Epith Cells Urine Bacteria Urine Mucus 04/19/17 04/19/17 04/19/17 05:56 05:56 09:15 WBC RBC Hgb Hct MCV MCH MCHC RDW RDW Differential Plt Count MPV Immature Gran % (Auto) Neut % (Auto) Lymph % (Auto) [place] % (Auto) Eos % (Auto) Baso % (Auto) Absolute Neuts (auto) Absolute Lymphs (auto) Total Counted Differential Comment Diff Path Review Sodium Potassium Chloride Carbon Dioxide Anion Gap BUN Creatinine Estim Creat Clear Calc Est GFR (MDRD) Af Amer Est GFR (MDRD) Non-Af BUN/Creatinine Ratio Glucose Hemoglobin A1c Lactic Acid Calcium Phosphorus 2.0 L Magnesium 2.7 H Urine Color Yellow Urine Clarity Clear Urine pH 6.0 Ur Specific [place] 1.015 Urine Protein 30 H Urine Glucose (UA) Normal Urine Ketones Negative Urine Occult Blood 50 H Urine Nitrite Negative Urine Bilirubin Negative Urine Urobilinogen Normal Ur Leukocyte Esterase Negative Urine RBC 0-5 SEEN Urine WBC 0 SEEN Ur Squamous Epith Cells 0 SEEN Urine Bacteria RARE Urine Mucus 0 SEEN 04/19/17 10:25 WBC RBC Hgb Hct MCV MCH MCHC RDW RDW Differential Plt Count MPV Immature Gran % (Auto) Neut % (Auto) Lymph % (Auto) [place] % (Auto) Eos % (Auto) Baso % (Auto) Absolute Neuts (auto) Absolute Lymphs (auto) Total Counted Differential Comment Diff Path Review Sodium Potassium Chloride Carbon Dioxide Anion Gap BUN Creatinine Estim Creat Clear Calc Est GFR (MDRD) Af Amer Est GFR (MDRD) Non-Af BUN/Creatinine Ratio Glucose Hemoglobin A1c Lactic Acid 1.1 Calcium Phosphorus Magnesium Urine Color Urine Clarity Urine pH Ur Specific [place] Urine Protein Urine Glucose (UA) Urine Ketones Urine Occult Blood Urine Nitrite Urine Bilirubin Urine Urobilinogen Ur Leukocyte Esterase Urine RBC Urine WBC Ur Squamous Epith Cells Urine Bacteria Urine Mucus Assessment/Plan Active and Suspected Problems Sepsis (Acute) Thrush of mouth and esophagus (Acute) AURELIA (acute kidney injury) (Acute) 1. Neutropenic fever and Acute Septic Shock 2/2 oral and esophageal thrush - continue nystatin and diflucan. Meropenem added as he developed a fever overnight and his neutropenia is worse. Vanco also added. His BP remained poor despite 6L IV fluids overnight, and he still has tachycardia. He was transferred to the ICU this AM. BMX solution is helping and he will attempt to eat today. ID is consulted. -Echo pending. EKG sinus tach. Trop neg. -Lactate neg x 2. -Blood cultures pending. -He is also having diarrhea - will check C diff today. Staph screen pending. 2. AURELIA - Improved with IV fluids. dehydrated. Not eating or drinking 2/2 throat pain. Fluids stopped. 3. Neutropenia/Leukopenia - 2/2 chemo. 4. Pancreatic / Rectal cancer s/p 1st round chemo with Dr. Rosales on 04/10. Consult to Dr. Rosales. 5. Thrombocytopenia 2/2 chemo, worse - avoid heparin products 6. Depression - on zyprexa DVT ppx: SCDs This patient was seen by Andrade Blount PA-C under the supervision of Doctor Singh.
[2017-04-19 15:13] LABS: Pathologist Review Reviewed
[2017-04-19 15:14] LABS: Pathologist Review Reviewed
--- NOTE | 2017-04-19 15:28 | CHAPLAIN ---
Type of Pastoral Visit _x__ Initial Visit ___ Follow-up Visit ___ On-call Visit ___ General Patient Visit ___ Spiritual Assessment ___ Family Conference ___ Bereavement ___ Rapid Response ___ Code Blue ___ Other (describe below) Pastoral Care Referral From _x__ Patient ___ Family ___ Nurse ___ Physician ___ Budget Engineer ___ Site Leasing Agent ___ Other (describe below) Sacrament/Intervention _x__ Active listening ___ Anointing ___ Faith ___ Bereavement ___ Communion _x__ Olive exploration ___ _x__ Life review _x__ Prayer ___ Reconciliation ___ Sacrament of Sick _x__ Supportive presence ___ Wedding ___ Other (describe below) Pastoral Comments 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
--- NOTE | 2017-04-19 16:56 | CON.PCM_ITS ---
Problem List (1) Pancreatic cancer Status: Chronic Qualifiers: Pancreatic malignancy location: tail of pancreas Qualified Code(s): C25.2 - Malignant neoplasm of tail of pancreas (2) Thrombocytopenia Status: Acute (3) AURELIA (acute kidney injury) Status: Acute Comment: Dehydration and diarrhea secondary to chemotherapy (4) Sepsis Status: Acute Qualifiers: Sepsis type: sepsis due to unspecified organism Qualified Code(s): A41.9 - Sepsis, unspecified organism (5) Neutropenia Status: Acute Qualifiers: Neutropenia type: secondary to cancer chemotherapy Qualified Code(s): D70.1 - Agranulocytosis secondary to cancer chemotherapy; T45.1X5A - Adverse effect of antineoplastic and immunosuppressive drugs, initial encounter - Consult Date of Consult: 04/19/[address] Singh regarding a patient with hypotension, neutropenia, thrombocytopenia and sepsis after chemotherapy for pancreatic cancer. I final recommendation will be communicated to the ICU team. - Reason for Consult Neutropenic fever; presumed sepsis Hypotension & AURELIA secondary to dehydration and diarrhea Severe mucositis secondary to chemotherapy Thrombocytopenia Advanced pancreatic cancer & localized rectal cancer. History of Present Illness Date of Admission: 04/18/17 The patient is a 61 year old M with a hx of advanced pancreatic and localized rectal cancer, Mr. Infante was doing well until last fall when he started losing weight of 30 pounds with loss of appetite and upper abdominal pain. CT abdomen and pelvis in January revealed fatty liver, there was a mass at the patella pancreas area patient underwent EGD EUS at [address] in February 2017. Fine-needle aspiration of pancreatic lesion was consistent with pancreatic cancer. She also had a colonoscopy and a large mass partially resected at 15 cm from anal verge consistent with invasive adenocarcinoma of the rectum. Subsequent PET scan revealed increased activity in the left upper abdomen at the patella the pancreas consistent with pancreatic cancer. There were also enhanced activity in the right lower posterior medial lung zone at the criteria of viable neoplasm. Mr. Infante had his first chemotherapy with FOLFIRIOX on 04/10. He did not receive Neulasta until 04/14 because of [employer] mis fired. He started to have mouth pain the following day. He had started taking nystatin orally with no relief. The pain is in both his mouth and throat, has severely worsened to the point where he cannot swallow and cannot eat or drink for the last couple days. He has heavy mucus production and is spitting frequently. He denies fevers or chills. He denies Nausea, vomiting, or abdominal pain, he has had several episodes of diarrhea. He has no SOB or cough. He was hypotensive at presentation which seems to have improved with IV fluids. He spiked a fever of 100.4 morning and was found to be neutropenic. Patient has significant bleeding and mucositis along with diarrhea 4 -5 x over 24 hours. blood culture were drawn and patient was started on empiric antibiotics with meropenem and vancomycin along with Diflucan. He was seen by ID this morning. Patient currently has no nausea or vomiting. Denies chest pain or shortness of breath. His mouth is very sore cannot eat or swallow. He has difficulty clearing his secretions. He has moderate abdominal pain, but his pain improved since chemotherapy. He has lost 10 pounds since last week. His renal function & blood pressure improved after 6 L of normal saline over the last 24 hours. Past Medical History Past Medical History (Chronic Problems): Chronic Problems Neutropenia (acute) Pancreatic cancer (Chronic) Thrombocytopenia (acute) Rectal cancer (Chronic) Acute kidney injury (acute) Allergies No Known Allergies Allergy (Verified 04/18/17 13:42) Home Medications: Ambulatory Orders Medication Instructions Recorded Acetaminophen [Tylenol Extra 1,000 mg PO Q6H PRN 04/18/17 Strength] Docusate Sodium [Colace] 100 mg PO BID PRN PRN 04/18/17 Nystatin 5 ml PO 4X/DAY PRN 04/18/17 Olanzapine [Zyprexa] 10 mg PO QHS 04/18/17 Ondansetron HCl [Zofran] 4 mg PO Q8H PRN PRN 04/18/17 Oxycodone [Oxyir] 1 - 2 tab PO Q4H PRN PRN 04/18/17 Surgical History: - - childhood surgery for undescended testicle. Psychiatric History: Depression Lives: Spouse/ Significant Other Smoking Status: Former smoker Tobacco Use: Non-smoker Alcohol: None Drugs: None - *Family History Maternal History Items: Cancer Sibling History Items: Cancer - x 2 sisters and a brother Review of Systems Constitutional: Reports: Weakness. Denies: Chills, Fever, Weight Change HEENT: Reports: Difficulty Swallowing, - - mouth pain, mouth mucus production, throat pain, painful swallowing.. Denies: Head Aches, Sinus Congestion, Sinus Drainage Cardiovascular: Denies: Chest Pain, Palpitations Respiratory: Denies: Cough, Shortness of breath at rest, Sputum production Gastrointestinal: Denies: Abdominal Pain, Nausea, Vomiting Genitourinary: Denies: Dysuria Musculoskeletal: Denies: Joint Pain, Joint Tenderness Skin: Denies: Rash, Wounds Neurological: Denies: Numbness, Tingling, Focal weakness Psychiatric: Denies: Anxiety, Depression, Homicidal Ideations, Suicidal Ideations Hematologic/ Lymphatic: Denies: Easy Bruising, Easy Bleeding Sepsis (Acute) Mucositis and diarrhea (Acute) AURELIA (acute kidney injury) (Acute) Neutropenia and thrombocytopenia (Acute) - Physical Exam General: Alert, Oriented x3, Cooperative HEENT: Atraumatic, PERRLA, EOMI, Normocephalic Oral: Ulcerations Present - beefy erythematous rash, white plaques, moist. Neck: Supple, No JVD, Negative Carotid Bruits Lungs: Clear to auscultation, Normal air movement Cardiovascular: Regular rate, No murmurs Abdomen: Bowel Sounds diminished, Soft, Non Tender, non- distended no jaundice. Extremities: No edema, Capillary Refill Less than 3 Seconds Skin: No rashes, No breakdown Musculoskeletal: No Tenderness to Palpation of Joints or Extremities Neurological: Cranial nerves II-XII grossly intact Psych/Mental Status: Normal Affect, Appropriate, Alert and oriented to time, place, person, mood and affect Vital Signs - 24 hr Temp Pulse Resp BP BP Pulse Ox 04/19/17 16:00 98.8 F 117 H 15 76/61 L 97 04/19/17 15:13 99 04/19/17 15:00 125 H 18 100/77 100 04/19/17 14:00 122 H 20 H 99/70 99 04/19/17 13:00 124 H 19 H 103/75 99 04/19/17 12:00 98.6 F 123 H 18 101/77 100 04/19/17 11:00 131 H 26 H 94/70 98 04/19/17 10:30 126 H 15 96/69 99 04/19/17 10:15 120 H 19 H 126/69 H 98 04/19/17 10:00 126 H 17 99/77 99 04/19/17 09:53 125 H 04/19/17 09:45 98.5 F 123 H 18 99/77 96 04/19/17 09:30 124 H 18 94/65 99 04/19/17 08:26 120 H 100 04/19/17 08:21 97.9 F 125 H 16 84/55 L 100 04/19/17 08:02 96 04/19/17 05:15 99.8 F H 125 H 16 97/64 97 04/19/17 03:30 100.4 F H 126 H 18 87/60 L 97 04/18/17 21:33 99.4 F H 123 H 20 H 95/60 98 04/18/17 17:49 100 04/18/17 17:47 98.3 F 128 H 18 102/52 L 95 Oxygen Flow Rate 2 Oxygen Delivery Method Room Air Weight: 77.111 kg Body Mass Index (BMI) 23.7 Laboratory Results - last 24 hr 04/18/17 04/19/17 04/19/17 13:30 05:56 05:56 WBC 0.3 L* RBC 4.74 Hgb 14.9 Hct 43.4 MCV 91.6 MCH 31.4 MCHC 34.3 RDW 13.9 RDW Differential 46.3 H Plt Count 34 L* MPV 12.2 H Immature Gran % (Auto) 0.000 Neut % (Auto) 12.1 L Lymph % (Auto) 81.8 H [place] % (Auto) 6.1 Eos % (Auto) 0.0 Baso % (Auto) 0.0 Absolute Neuts (auto) 0.0 L Absolute Lymphs (auto) 0.27 L Total Counted Not Reportable Differential Comment Diff Path Review Reviewed Reviewed Sodium 146 H Potassium 4.0 Chloride 117 H Carbon Dioxide 18.0 L Anion Gap 11 BUN 55 H Creatinine 0.93 Estim Creat Clear Calc 91.09 Est GFR (MDRD) Af Amer 107 Est GFR (MDRD) Non-Af 89 BUN/Creatinine Ratio 59.3 H Glucose 163 H Hemoglobin A1c Lactic Acid Calcium 7.4 L Phosphorus Magnesium Urine Color Urine Clarity Urine pH Ur Specific [place] Urine Protein Urine Glucose (UA) Urine Ketones Urine Occult Blood Urine Nitrite Urine Bilirubin Urine Urobilinogen Ur Leukocyte Esterase Urine RBC Urine WBC Ur Squamous Epith Cells Urine Bacteria Urine Mucus 04/19/17 04/19/17 04/19/17 05:56 05:56 05:56 WBC RBC Hgb Hct MCV MCH MCHC RDW RDW Differential Plt Count MPV Immature Gran % (Auto) Neut % (Auto) Lymph % (Auto) [place] % (Auto) Eos % (Auto) Baso % (Auto) Absolute Neuts (auto) Absolute Lymphs (auto) Total Counted Differential Comment Diff Path Review Sodium Potassium Chloride Carbon Dioxide Anion Gap BUN Creatinine Estim Creat Clear Calc Est GFR (MDRD) Af Amer Est GFR (MDRD) Non-Af BUN/Creatinine Ratio Glucose Hemoglobin A1c 6.4 H Lactic Acid Calcium Phosphorus 2.0 L Magnesium 2.7 H Urine Color Urine Clarity Urine pH Ur Specific [place] Urine Protein Urine Glucose (UA) Urine Ketones Urine Occult Blood Urine Nitrite Urine Bilirubin Urine Urobilinogen Ur Leukocyte Esterase Urine RBC Urine WBC Ur Squamous Epith Cells Urine Bacteria Urine Mucus 04/19/17 04/19/17 09:15 10:25 WBC RBC Hgb Hct MCV MCH MCHC RDW RDW Differential Plt Count MPV Immature Gran % (Auto) Neut % (Auto) Lymph % (Auto) [place] % (Auto) Eos % (Auto) Baso % (Auto) Absolute Neuts (auto) Absolute Lymphs (auto) Total Counted Differential Comment Diff Path Review Sodium Potassium Chloride Carbon Dioxide Anion Gap BUN Creatinine Estim Creat Clear Calc Est GFR (MDRD) Af Amer Est GFR (MDRD) Non-Af BUN/Creatinine Ratio Glucose Hemoglobin A1c Lactic Acid 1.1 Calcium Phosphorus Magnesium Urine Color Yellow Urine Clarity Clear Urine pH 6.0 Ur Specific [place] 1.015 Urine Protein 30 H Urine Glucose (UA) Normal Urine Ketones Negative Urine Occult Blood 50 H Urine Nitrite Negative Urine Bilirubin Negative Urine Urobilinogen Normal Ur Leukocyte Esterase Negative Urine RBC 0-5 SEEN Urine WBC 0 SEEN Ur Squamous Epith Cells 0 SEEN Urine Bacteria RARE Urine Mucus 0 SEEN Assessment/Plan Active and Suspected Problems Sepsis; neutropenic fever (Acute) Grade 3 mucositis and diarrhea (Acute) AURELIA (acute kidney injury) (Acute) Thrombocytopenia (Acute) Pancreatic cancer Rectal cancer 1. Neutropenic sepsis - Plan: ID consult. -Continue broad-spectrum antibiotics with meropenem and vancomycin and Diflucan -D/C nystatin swish and swallow 2. AURELIA - IV fluids. dehydrated and diarrhea; possible ATN from chemotherapy Plan: -Maintain IV fluid and maintained blood pressure and avoid hypotension 3. Neutropenia - 2/2 chemo. Abs neutos 0.3; patient has not rakesh or another 2- 3 more days Plan: - Continue supportive care and broad-spectrum antibiotics 4. Thrombocytopenia 2/2 chemo. Plan: avoid heparin products & aspirin - Transfuse if platelets < 30,000- 20,000 because of mucositis and bleeding - Repeat coags; PT/PTT & fibrinogen 5) severe mucositis and diarrhea secondary to chemotherapy Plan: - Keep nothing by mouth - Consider PPN tomorrow - Tylenol 3 as needed for pain; BMX suspension as needed for mucositis - Sandostatin 100mcg IV every 8 hours for diarrhea - Check stool culture for enteric pathogen cc: Dr. Dc Rosales, Dr. Mukesh Lee, Dr. Sameer Bowling; Dr. Tia Singh
[2017-04-19 20:45] LABS: M R Staph aureus DNA By PCR Negative (Negative); Probe Check PASS; Specimen Processing Control PASS
[2017-04-19] MEDS: Octreotide 0.1 MG/ML ML SC (21:07)
[2017-04-20] VITALS (41 sets, daily range): BP systolic 76–100; BP diastolic 50–87; PULSE 106–127; RESP 12–26; TEMP 36.5–37.2; O2SAT 96–100
[2017-04-20] MEDS: Octreotide 0.1 MG/ML ML SC ×3 (05:09→21:41)
[2017-04-20 05:19] LABS: Absolute Lymphocyte Count 0.42 X10^3/ul (0.83-4.51); Hemoglobin 16.6 g/dl (13.0-16.5); International Normalized Ratio 2.1; Lymphocyte # 0.42 X10^3/ul (4.0); Mean Corp Hgb Conc 33.9 g/gl (32-36); Mean Corpuscular Hgb 31.6 pg (27.0-32.0); Mean Corpuscular Volume 93.2 fL (80-94); Mean Platelet Vol. 10.6 fl (6.2-12.0); Prothrombin Time (Protime)PT. 23.3 SECONDS (11.7-14.9); RBC Distribution Width CV 14.5 % (11.6-14.6); RBC Distribution Width SD 49.3 fl (35.1-43.9); Red Blood Count 5.26 M/mm3 (4.6-6.2)
[2017-04-20 05:20] LABS: Anion Gap 6 (5-15); BUN 44 mg/dL (7-18); BUN/Creat Ratio 49.6 RATIO (10-20); Calcium,Total 7.6 mg/dL (8.5-10.1); Chloride 123 mmol/L (98-107); Creatinine, Serum 0.89 mg/dL (0.70-1.30); EST Glomerular Filtration Rate 93 mL/min (>60); Est Glom Filt Rate - Afr Amer 113 mL/min (>60); Estimated Creatinine Clearance 95.18 ml/min; Glucose 176 mg/dL (74-106); Partial Thromboplast Time 28.1 Seconds (24.1-36.2); Potassium 4.2 mmol/L (3.5-5.1); Sodium Level 150 mmol/L (136-145)
[2017-04-20 05:21] LABS: Differential Indicated SCAN CRITERIA MET; POSITIVE COUNT YES; POSITIVE DIFFERENTIAL YES; POSITIVE MORPHOLOGY YES; Platelet Count 24 K/mm3 (150-450); White Blood Count 0.4 K/mm3 (4.4-11.0)
[2017-04-20 05:27] LABS: Fibrinogen 403 mg/dl (203-444)
[2017-04-20 06:12] LABS: Differential Comment SCAN; Platelet Estimate MKD DEC (ADEQ)
--- NOTE | 2017-04-20 06:28 | PCM.PN.HOSP ---
Patient Problems: Active and Suspected Problems Neutropenia (Acute) Sepsis (Acute) Thrush of mouth and esophagus (Acute) Thrombocytopenia (Acute) AURELIA (acute kidney injury) (Acute) Dehydration and diarrhea secondary to chemotherapy Subjective: Patient overnight with MAP low-60s, systolic remained 80s, tachycardic, still ongoing oral pain. Discussed changes with patient including d/c oral nystatin S/S, plan for Plt administration given decrease with goal > 30, started on D51/2NS given losses to avoid pressor needs, attempts to decrease chemo associated diarrhea w/ sandostatin. Patient denies fevers, chills, nausea, emesis, abdominal pain, chest pain or dyspnea. Objective: Physical Examination: General: awake, alert, oriented x 3 and cooperative, seated upright in the ICU bed, denies any acute complaints aside ongoing oral pain, not markedly improved. Skin: normal color, turgor, no icterus, cyanosis. HEENT: AT/NC, EOMI, PERRLA, severely dry MM, crusted dried mouth, difficult to open secondary to pain, difficult to assess secondary to pain with opening attempts, thrush still present. Lungs: Diminished BS BL, > bases, poor effort, no rales, ronchi or wheezing. Heart: Tachycardic with regular rhythm; no gallop, rub audible, port in place. Abdomen: soft, thin habitus, NTTP, ND, normal BS, no HSM. Extremities: no cyanosis, clubbing, or edema. Neurological: patient awake, alert, oriented x 3; cognitive function intact; pupils equally reactive to light and accomodation; cranial nerves II-XII grossly normal, moving all 4 extremities, no focal deficits, strength severely globally decreased secondary to acute presentation. Psychiatric: affect appears flat, no acute evidence of depressive or anxiety feelings. Vitals/I&O's: Vital Signs Temp Pulse Resp BP Pulse Ox 97.7 F L 113 H 22 H 77/54 L 99 04/20/17 06:12 04/20/17 06:12 04/20/17 06:12 04/20/17 06:12 04/20/17 06:12 Oxygen Delivery Method Room Air Weight: 177 lb 7.554 oz Body Mass Index (BMI) 23.7 Intake and Output for Last 24 Hours 04/18/17 04/19/17 04/20/17 23:59 23:59 23:59 Intake Total 5763 / 5763 1045 / 1045 Output Total 525 / 525 475 / 475 Balance 5238 / 5238 570 / 570 Microbiology Past 72 Hours 04/19/17 11:00 Stool C. difficile DNA Amplification - Final Laboratory Results 04/19/17 05:56: Sodium 146 H, Potassium 4.0, Chloride 117 H, Carbon Dioxide 18.0 L, Anion Gap 11, BUN 55 H, Creatinine 0.93, Estim Creat Clear Calc 91.09, Est GFR (MDRD) Af Amer 107, Est GFR (MDRD) Non-Af 89, BUN/Creatinine Ratio 59.3 H, Glucose 163 H, Calcium 7.4 L 04/19/17 05:56: WBC 0.3 L*, RBC 4.74, Hgb 14.9, Hct 43.4, MCV 91.6, MCH 31.4, MCHC 34.3, RDW 13.9, RDW Differential 46.3 H, Plt Count 34 L*, MPV 12.2 H, Immature Gran % (Auto) 0.000, Neut % (Auto) 12.1 L, Lymph % (Auto) 81.8 H, [place] % (Auto) 6.1, Eos % (Auto) 0.0, Baso % (Auto) 0.0, Absolute Neuts (auto) 0.0 L, Absolute Lymphs (auto) 0.27 L, Total Counted Not Reportable, Differential Comment , Diff Path Review Reviewed 04/19/17 05:56: Hemoglobin A1c 6.4 H 04/19/17 05:56: Magnesium 2.7 H 04/19/17 05:56: Phosphorus 2.0 L 04/19/17 09:15: Urine Color Yellow, Urine Clarity Clear, Urine pH 6.0, Ur Specific [place] 1.015, Urine Protein 30 H, Urine Glucose (UA) Normal, Urine Ketones Negative, Urine Occult Blood 50 H, Urine Nitrite Negative, Urine Bilirubin Negative, Urine Urobilinogen Normal, Ur Leukocyte Esterase Negative, Urine RBC 0-5 SEEN, Urine WBC 0 SEEN, Ur Squamous Epith Cells 0 SEEN, Urine Bacteria RARE, Urine Mucus 0 SEEN 04/19/17 10:25: Lactic Acid 1.1 04/19/17 11:40: MRSA (PCR) Negative 04/20/17 04:45: WBC 0.4 L*, RBC 5.26, Hgb 16.6 H, Hct 49.0, MCV 93.2, MCH 31.6, MCHC 33.9, RDW 14.5, RDW Differential 49.3 H, Plt Count 24 L*, MPV 10.6, Immature Gran % (Auto) 0.000, Neut % (Auto) 0.0 L, Lymph % (Auto) 100.0 H, [place] % (Auto) 0.0, Eos % (Auto) 0.0, Baso % (Auto) 0.0, Absolute Neuts (auto) 0.0 L, Absolute Lymphs (auto) 0.42 L, Total Counted Not Reportable, Differential Comment SCAN, Diff Path Review June, Platelet Estimate MKD 04/20/17 04:45: Sodium 150 H, Potassium 4.2, Chloride 123 H, Carbon Dioxide 21.0, Anion Gap 6, BUN 44 H, Creatinine 0.89, Estim Creat Clear Calc 95.18, Est GFR (MDRD) Af Amer 113, Est GFR (MDRD) Non-Af 93, BUN/Creatinine Ratio 49.6 H, Glucose 176 H, Calcium 7.6 L 04/20/17 04:45: PT 23.3 H, INR 2.1, APTT 28.1, Fibrinogen 403 Current Medications Acetaminophen (Tylenol) 1,000 mg PO Q6H PRN PRN Reason: FEVER Bisacodyl (Dulcolax) 5 mg PO DAILY PRN PRN PRN Reason: Constipation Docusate Sodium (Colace) 100 mg PO BID PRN PRN PRN Reason: Constipation Fluconazole (Diflucan) 200 mg in 100 mls @ 100 mls/hr IV Q24 [facility] Last Admin: 04/19/17 10:29 Dose: 100 mls/hr Famotidine 20 mg/ Sodium (Chloride) 10 mls @ 300 mls/hr IV Q12 [facility] Last Admin: 04/19/17 21:08 Dose: 300 mls/hr Meropenem 1 gm/ Sodium (Chloride) 120 mls @ 33 mls/hr IV Q8 [facility] Last Admin: 04/20/17 05:09 Dose: 33 mls/hr Sodium Chloride () 250 mls @ 15 mls/hr IV .[id number] PRN PRN Reason: SALINE FLUSH Sodium Chloride () 250 mls @ 15 mls/hr IV .[id number] PRN PRN Reason: SALINE FLUSH Vancomycin HCl 1,250 mg/ (Sodium Chloride) 275 mls @ 183.333 mls/hr IV Q12H [facility] Last Admin: 04/20/17 00:10 Dose: 183.333 mls/hr Lidocaine/Diphenhydr/Alum/Mg/Simeth () 10 ml PO Q3H PRN PRN PRN Reason: SORE THROAT Last Admin: 04/19/17 16:50 Dose: 10 ml Magnesium Hydroxide (Milk Of Magnesia) 30 ml PO DAILY PRN PRN PRN Reason: Constipation Octreotide Acetate (Sandostatin) 0.1 mg SC TID [facility] Last Admin: 04/20/17 05:09 Dose: 0.1 mg Ondansetron HCl (Zofran Odt) 4 mg PO Q8H PRN PRN PRN Reason: NAUSEA Psyllium Hydrophilic Mucilloid (Metamucil) 1 packet PO DAILY PRN PRN PRN Reason: CONSTIPATION Sodium Chloride () 5 - 30 ml IV UD PRN PRN Reason: SALINE FLUSH Last Admin: 04/19/17 10:32 Dose: 20 ml Assessment/Plan Active and Suspected Problems Neutropenia (Acute) Sepsis (Acute) Thrush of mouth and esophagus (Acute) Thrombocytopenia (Acute) AURELIA (acute kidney injury) (Acute) Dehydration and diarrhea secondary to chemotherapy The patient is a 61 y/o M w/ PMHx: Pancreatitic Cancer, Rectal Cancer following w/ Dr. Rosales with initial recent chemotherapy start 04/10/17 with following development severe thrush who presents to the [facility] ED on 04/18/17 w/ history of worsened oral discomfort, poor intake secondary to pain associated, onset diarrhea. (1) Severe Sepsis secondary to Neutropenic fever, Unclear Specific Etiology w/ Thrombocytopenia, Leukopenia w/ Pancreatic CA and Rectal CA w/ Diarrhea, Poor Oral Intake, Mucosal Fluid Losses, Severe Mucositis: Admission CBC w/ WBC 1.7, Hgb 17.1, Plts 53 with ANC 1.1-->04/19/17 CBC w/ WBC 0.3, Hgb 14.9, Plts 34 with ANC 0-->04/20/17 CBC w/ WBC 0.4, Hgb 16.6, Plt 24 with ANC 0, initial BMP w/ BUN/Cr 87/1.71-->04/20/17 BUN/Cr 44/0.89, CXR w/ no acute process, UA unremarkable. Bld cx and UCx pending. Oncology aware, following. Initially admitted to [place], 04/19/17 worsened status with hypotension despite aggressive hydration (6L) and onset fevers thus transitioned to the ICU, maintained on Neutropenic precautions, mag and phos levels obtained and supplemented as needed, maintain I&Os, treat with IV meropenem, vanc and IV diflucan pending cultures. PRN tylenol, anti-emetics, pain regimen. ID consulted and following. ICU physician consulted and following. Admit LA 1.5, repeat 1.1. ECHO obtained w/ 60%, technically difficult study with inability to estimate RVSP. C-diff assay obtained, negative, enteric pathogen stool requested, pending. Likely diarrhea secondary to recent chemotherapy. Will maintain on sandostatin IM as no IV option. Trending coags per Dr. Cheek recommendation. Per Dr. Cheek recommendations will transfuse Plts <30,000 given mucositis and oral bleeding. 04/19/17-04/20/17 MAP decreased, <65, given MAP low-60s, and ongoing mucosal fluid loss, will initiate D51/2NS and continue to trend MAP/BP, defer pressors if able. TPN ordered to start. (2) Acute kidney injury: Secondary to poor oral intake, #1 as noted. Admission BUN/Cr 87/1.71, aggressively hydrated, repeat BUN/Cr 55/0.93-->04/20/17 BUN/Cr 44/0.89, hydration held per ICU given 6L since admission. 04/19/17-04/20/17 MAP decreased, <65, discuss pressor initiation with ICU, likely will need central placed additionally. (3) Thrush, Severe Mucositis: Given inability to take oral, d/c oral nystatin S/S, maintain on IV diflucan, BMX liquid. Nutrition consulted, likely will need TPN, will discuss today with ICU. Patient interested in palliative evaluation to assist with pain, pending. Unable to given IV narcotic secondary to BPs. (4) Encephalopathy: Multifactorial, secondary to #1, #2, #3, continue treatment as noted. (5) Hyperglycemia: Admission glucose 187, remained elevated, HgbA1c 6.4%. (6) Hypernatremia: Iatrogenic, admission Na 138, aggressive hydration as noted secondary to hypotension, 04/19/17 repeat Na 146-->04/20/17 Na 150. Starting as noted D51/2NS as IVFs required secondary to MAP/BP, ongoing mucosal fluid losses. (7) GERD: Famotidine IV. (8) DVT prophylaxis: SCDs, defer chemoprophylaxis with thrombocytopenia. (9) Severe Protein-Calorie Malnutrition: Evidenced per habitus, weight loss, muscle and fat loss, nutrition consulted, TPN to be started today, pharmacy consulted to arrange. (10) CODE status: FULL CODE. Code Visit Inpatient E&M: 46965 Subs Hosp L3
--- NOTE | 2017-04-20 06:35 | PN_ITS ---
Patient Problems: Active and Suspected Problems Neutropenia (Acute) Sepsis (Acute) Thrush of mouth and esophagus (Acute) Thrombocytopenia (Acute) AURELIA (acute kidney injury) (Acute) Dehydration and diarrhea secondary to chemotherapy Subjective: Patient overnight with MAP low-60s, systolic remained 80s, tachycardic, still ongoing oral pain. Discussed changes with patient including d/c oral nystatin S/ S, plan for Plt administration given decrease with goal > 30, started on D51/ 2NS given losses to avoid pressor needs, attempts to decrease chemo associated diarrhea w/ sandostatin. Patient denies fevers, chills, nausea, emesis, abdominal pain, chest pain or dyspnea. Objective: Physical Examination: General: awake, alert, oriented x 3 and cooperative, seated upright in the ICU bed, denies any acute complaints aside ongoing oral pain, not markedly improved. Skin: normal color, turgor, no icterus, cyanosis. HEENT: AT/NC, EOMI, PERRLA, severely dry MM, crusted dried mouth, difficult to open secondary to pain, difficult to assess secondary to pain with opening attempts, thrush still present. Lungs: Diminished BS BL, > bases, poor effort, no rales, ronchi or wheezing. Heart: Tachycardic with regular rhythm; no gallop, rub audible, port in place. Abdomen: soft, thin habitus, NTTP, ND, normal BS, no HSM. Extremities: no cyanosis, clubbing, or edema. Neurological: patient awake, alert, oriented x 3; cognitive function intact; pupils equally reactive to light and accomodation; cranial nerves II-XII grossly normal, moving all 4 extremities, no focal deficits, strength severely globally decreased secondary to acute presentation. Psychiatric: affect appears flat, no acute evidence of depressive or anxiety feelings. Vitals/I&O's: Vital Signs Temp Pulse Resp BP Pulse Ox 97.7 F L 113 H 22 H 77/54 L 99 04/20/17 06:12 04/20/17 06:12 04/20/17 06:12 04/20/17 06:12 04/20/17 06:12 Oxygen Delivery Method Room Air Weight: 177 lb 7.554 oz Body Mass Index (BMI) 23.7 Intake and Output for Last 24 Hours 04/18/17 04/19/17 04/20/17 23:59 23:59 23:59 Intake Total 5763 / 5763 1045 / 1045 Output Total 525 / 525 475 / 475 Balance 5238 / 5238 570 / 570 Microbiology Past 72 Hours 04/19/17 11:00 Stool C. difficile DNA Amplification - Final Laboratory Results 04/19/17 05:56: Sodium 146 H, Potassium 4.0, Chloride 117 H, Carbon Dioxide 18.0 L, Anion Gap 11, BUN 55 H, Creatinine 0.93, Estim Creat Clear Calc 91.09, Est GFR (MDRD) Af Amer 107, Est GFR (MDRD) Non-Af 89, BUN/Creatinine Ratio 59.3 H, Glucose 163 H, Calcium 7.4 L 04/19/17 05:56: WBC 0.3 L*, RBC 4.74, Hgb 14.9, Hct 43.4, MCV 91.6, MCH 31.4, MCHC 34.3, RDW 13.9, RDW Differential 46.3 H, Plt Count 34 L*, MPV 12.2 H, Immature Gran % (Auto) 0.000, Neut % (Auto) 12.1 L, Lymph % (Auto) 81.8 H, [place] % (Auto) 6.1, Eos % (Auto) 0.0, Baso % (Auto) 0.0, Absolute Neuts (auto) 0.0 L, Absolute Lymphs (auto) 0.27 L, Total Counted Not Reportable, Differential Comment , Diff Path Review Reviewed 04/19/17 05:56: Hemoglobin A1c 6.4 H 04/19/17 05:56: Magnesium 2.7 H 04/19/17 05:56: Phosphorus 2.0 L 04/19/17 09:15: Urine Color Yellow, Urine Clarity Clear, Urine pH 6.0, Ur Specific [place] 1.015, Urine Protein 30 H, Urine Glucose (UA) Normal, Urine Ketones Negative, Urine Occult Blood 50 H, Urine Nitrite Negative, Urine Bilirubin Negative, Urine Urobilinogen Normal, Ur Leukocyte Esterase Negative, Urine RBC 0-5 SEEN, Urine WBC 0 SEEN, Ur Squamous Epith Cells 0 SEEN, Urine Bacteria RARE, Urine Mucus 0 SEEN 04/19/17 10:25: Lactic Acid 1.1 04/19/17 11:40: MRSA (PCR) Negative 04/20/17 04:45: WBC 0.4 L*, RBC 5.26, Hgb 16.6 H, Hct 49.0, MCV 93.2, MCH 31.6, MCHC 33.9, RDW 14.5, RDW Differential 49.3 H, Plt Count 24 L*, MPV 10.6, Immature Gran % (Auto) 0.000, Neut % (Auto) 0.0 L, Lymph % (Auto) 100.0 H, [place] % (Auto) 0.0, Eos % (Auto) 0.0, Baso % (Auto) 0.0, Absolute Neuts (auto) 0.0 L, Absolute Lymphs (auto) 0.42 L, Total Counted Not Reportable, Differential Comment SCAN, Diff Path Review June, Platelet Estimate MKD 04/20/17 04:45: Sodium 150 H, Potassium 4.2, Chloride 123 H, Carbon Dioxide 21.0 , Anion Gap 6, BUN 44 H, Creatinine 0.89, Estim Creat Clear Calc 95.18, Est GFR (MDRD) Af Amer 113, Est GFR (MDRD) Non-Af 93, BUN/Creatinine Ratio 49.6 H, Glucose 176 H, Calcium 7.6 L 04/20/17 04:45: PT 23.3 H, INR 2.1, APTT 28.1, Fibrinogen 403 Current Medications Acetaminophen (Tylenol) 1,000 mg PO Q6H PRN PRN Reason: FEVER Bisacodyl (Dulcolax) 5 mg PO DAILY PRN PRN PRN Reason: Constipation Docusate Sodium (Colace) 100 mg PO BID PRN PRN PRN Reason: Constipation Fluconazole (Diflucan) 200 mg in 100 mls @ 100 mls/hr IV Q24 [facility] Last Admin: 04/19/17 10:29 Dose: 100 mls/hr Famotidine 20 mg/ Sodium (Chloride) 10 mls @ 300 mls/hr IV Q12 [facility] Last Admin: 04/19/17 21:08 Dose: 300 mls/hr Meropenem 1 gm/ Sodium (Chloride) 120 mls @ 33 mls/hr IV Q8 [facility] Last Admin: 04/20/17 05:09 Dose: 33 mls/hr Sodium Chloride () 250 mls @ 15 mls/hr IV .[id number] PRN PRN Reason: SALINE FLUSH Sodium Chloride () 250 mls @ 15 mls/hr IV .[id number] PRN PRN Reason: SALINE FLUSH Vancomycin HCl 1,250 mg/ (Sodium Chloride) 275 mls @ 183.333 mls/hr IV Q12H [facility] Last Admin: 04/20/17 00:10 Dose: 183.333 mls/hr Lidocaine/Diphenhydr/Alum/Mg/Simeth () 10 ml PO Q3H PRN PRN PRN Reason: SORE THROAT Last Admin: 04/19/17 16:50 Dose: 10 ml Magnesium Hydroxide (Milk Of Magnesia) 30 ml PO DAILY PRN PRN PRN Reason: Constipation Octreotide Acetate (Sandostatin) 0.1 mg SC TID [facility] Last Admin: 04/20/17 05:09 Dose: 0.1 mg Ondansetron HCl (Zofran Odt) 4 mg PO Q8H PRN PRN PRN Reason: NAUSEA Psyllium Hydrophilic Mucilloid (Metamucil) 1 packet PO DAILY PRN PRN PRN Reason: CONSTIPATION Sodium Chloride () 5 - 30 ml IV UD PRN PRN Reason: SALINE FLUSH Last Admin: 04/19/17 10:32 Dose: 20 ml Assessment/Plan Active and Suspected Problems Neutropenia (Acute) Sepsis (Acute) Thrush of mouth and esophagus (Acute) Thrombocytopenia (Acute) AURELIA (acute kidney injury) (Acute) Dehydration and diarrhea secondary to chemotherapy The patient is a 61 y/o M w/ PMHx: Pancreatitic Cancer, Rectal Cancer following w/ Dr. Rosales with initial recent chemotherapy start 04/10/17 with following development severe thrush who presents to the [facility] ED on 04/18/17 w/ history of worsened oral discomfort, poor intake secondary to pain associated, onset diarrhea. (1) Severe Sepsis secondary to Neutropenic fever, Unclear Specific Etiology w/ Thrombocytopenia, Leukopenia w/ Pancreatic CA and Rectal CA w/ Diarrhea, Poor Oral Intake, Mucosal Fluid Losses, Severe Mucositis: Admission CBC w/ WBC 1.7, Hgb 17.1, Plts 53 with ANC 1.1-->04/19/17 CBC w/ WBC 0.3, Hgb 14.9, Plts 34 with ANC 0-->04/20/17 CBC w/ WBC 0.4, Hgb 16.6, Plt 24 with ANC 0, initial BMP w/ BUN/ Cr 87/1.71-->04/20/17 BUN/Cr 44/0.89, CXR w/ no acute process, UA unremarkable. Bld cx and UCx pending. Oncology aware, following. Initially admitted to [place], worsened status with hypotension despite aggressive hydration (6L) and onset fevers thus transitioned to the ICU, maintained on Neutropenic precautions , mag and phos levels obtained and supplemented as needed, maintain I&Os, treat with IV meropenem, vanc and IV diflucan pending cultures. PRN tylenol, anti- emetics, pain regimen. ID consulted and following. ICU physician consulted and following. Admit LA 1.5, repeat 1.1. ECHO obtained w/ 60%, technically difficult study with inability to estimate RVSP. C-diff assay obtained, negative , enteric pathogen stool requested, pending. Likely diarrhea secondary to recent chemotherapy. Will maintain on sandostatin IM as no IV option. Trending coags per Dr. Cheek recommendation. Per Dr. Cheek recommendations will transfuse Plts <30,000 given mucositis and oral bleeding. 04/19/17-04/20/17 MAP decreased, < 65, given MAP low-60s, and ongoing mucosal fluid loss, will initiate D51/2NS and continue to trend MAP/BP, defer pressors if able. TPN ordered to start. (2) Acute kidney injury: Secondary to poor oral intake, #1 as noted. Admission BUN/Cr 87/1.71, aggressively hydrated, repeat BUN/Cr 55/0.93-->04/20/17 BUN/Cr 44/ 0.89, hydration held per ICU given 6L since admission. 04/19/17-04/20/17 MAP decreased, <65, discuss pressor initiation with ICU, likely will need central placed additionally. (3) Thrush, Severe Mucositis: Given inability to take oral, d/c oral nystatin S/ S, maintain on IV diflucan, BMX liquid. Nutrition consulted, likely will need TPN, will discuss today with ICU. Patient interested in palliative evaluation to assist with pain, pending. Unable to given IV narcotic secondary to BPs. (4) Encephalopathy: Multifactorial, secondary to #1, #2, #3, continue treatment as noted. (5) Hyperglycemia: Admission glucose 187, remained elevated, HgbA1c 6.4%. (6) Hypernatremia: Iatrogenic, admission Na 138, aggressive hydration as noted secondary to hypotension, 04/19/17 repeat Na 146-->04/20/17 Na 150. Starting as noted D51/2NS as IVFs required secondary to MAP/BP, ongoing mucosal fluid losses. (7) GERD: Famotidine IV. (8) DVT prophylaxis: SCDs, defer chemoprophylaxis with thrombocytopenia. (9) Severe Protein-Calorie Malnutrition: Evidenced per habitus, weight loss, muscle and fat loss, nutrition consulted, TPN to be started today, pharmacy consulted to arrange. (10) CODE status: FULL CODE. Code Visit Inpatient E&M: 29369 Subs Hosp L3
--- NOTE | 2017-04-20 07:05 | PN_ITS ---
<Sameer Bowling - Last Filed: 04/20/17 07:05> Vital Signs Temp Pulse Resp BP Pulse Ox 97.7 F L 113 H 22 H 77/54 L 99 04/20/17 06:12 04/20/17 06:12 04/20/17 06:12 04/20/17 06:12 04/20/17 06:12 Oxygen Delivery Method Room Air Weight: 168 lb 10.458 oz Body Mass Index (BMI) 23.7 Intake and Output for Last 24 Hours 04/18/17 04/19/17 04/20/17 23:59 23:59 23:59 Intake Total 5763 / 5763 1045 / 1045 Output Total 525 / 525 475 / 475 Balance 5238 / 5238 570 / 570 Labs (Last 48 Hours) 04/19/17 04/19/17 04/19/17 05:56 05:56 05:56 WBC 0.3 L* RBC 4.74 Hgb 14.9 Hct 43.4 MCV 91.6 MCH 31.4 MCHC 34.3 RDW 13.9 RDW Differential 46.3 H Plt Count 34 L* MPV 12.2 H Immature Gran % (Auto) 0.000 Neut % (Auto) 12.1 L Lymph % (Auto) 81.8 H [place] % (Auto) 6.1 Eos % (Auto) 0.0 Baso % (Auto) 0.0 Absolute Neuts (auto) 0.0 L Absolute Lymphs (auto) 0.27 L Total Counted Not Reportable Differential Comment Diff Path Review Reviewed Platelet Estimate PT INR APTT Fibrinogen Sodium 146 H Potassium 4.0 Chloride 117 H Carbon Dioxide 18.0 L Anion Gap 11 BUN 55 H Creatinine 0.93 Estim Creat Clear Calc 91.09 Est GFR (MDRD) Af Amer 107 Est GFR (MDRD) Non-Af 89 BUN/Creatinine Ratio 59.3 H Glucose 163 H Hemoglobin A1c 6.4 H Lactic Acid Calcium 7.4 L Phosphorus Magnesium Urine Color Urine Clarity Urine pH Ur Specific [place] Urine Protein Urine Glucose (UA) Urine Ketones Urine Occult Blood Urine Nitrite Urine Bilirubin Urine Urobilinogen Ur Leukocyte Esterase Urine RBC Urine WBC Ur Squamous Epith Cells Urine Bacteria Urine Mucus MRSA (PCR) 04/19/17 04/19/17 04/19/17 05:56 05:56 09:15 WBC RBC Hgb Hct MCV MCH MCHC RDW RDW Differential Plt Count MPV Immature Gran % (Auto) Neut % (Auto) Lymph % (Auto) [place] % (Auto) Eos % (Auto) Baso % (Auto) Absolute Neuts (auto) Absolute Lymphs (auto) Total Counted Differential Comment Diff Path Review Platelet Estimate PT INR APTT Fibrinogen Sodium Potassium Chloride Carbon Dioxide Anion Gap BUN Creatinine Estim Creat Clear Calc Est GFR (MDRD) Af Amer Est GFR (MDRD) Non-Af BUN/Creatinine Ratio Glucose Hemoglobin A1c Lactic Acid Calcium Phosphorus 2.0 L Magnesium 2.7 H Urine Color Yellow Urine Clarity Clear Urine pH 6.0 Ur Specific [place] 1.015 Urine Protein 30 H Urine Glucose (UA) Normal Urine Ketones Negative Urine Occult Blood 50 H Urine Nitrite Negative Urine Bilirubin Negative Urine Urobilinogen Normal Ur Leukocyte Esterase Negative Urine RBC 0-5 SEEN Urine WBC 0 SEEN Ur Squamous Epith Cells 0 SEEN Urine Bacteria RARE Urine Mucus 0 SEEN MRSA (PCR) 04/19/17 04/19/17 04/20/17 10:25 11:40 04:45 WBC 0.4 L* RBC 5.26 Hgb 16.6 H Hct 49.0 MCV 93.2 MCH 31.6 MCHC 33.9 RDW 14.5 RDW Differential 49.3 H Plt Count 24 L* MPV 10.6 Immature Gran % (Auto) 0.000 Neut % (Auto) 0.0 L Lymph % (Auto) 100.0 H [place] % (Auto) 0.0 Eos % (Auto) 0.0 Baso % (Auto) 0.0 Absolute Neuts (auto) 0.0 L Absolute Lymphs (auto) 0.42 L Total Counted Not Reportable Differential Comment SCAN Diff Path Review May foll Platelet Estimate MKD DEC PT INR APTT Fibrinogen Sodium Potassium Chloride Carbon Dioxide Anion Gap BUN Creatinine Estim Creat Clear Calc Est GFR (MDRD) Af Amer Est GFR (MDRD) Non-Af BUN/Creatinine Ratio Glucose Hemoglobin A1c Lactic Acid 1.1 Calcium Phosphorus Magnesium Urine Color Urine Clarity Urine pH Ur Specific [place] Urine Protein Urine Glucose (UA) Urine Ketones Urine Occult Blood Urine Nitrite Urine Bilirubin Urine Urobilinogen Ur Leukocyte Esterase Urine RBC Urine WBC Ur Squamous Epith Cells Urine Bacteria Urine Mucus MRSA (PCR) Negative 04/20/17 04/20/17 04:45 04:45 WBC RBC Hgb Hct MCV MCH MCHC RDW RDW Differential Plt Count MPV Immature Gran % (Auto) Neut % (Auto) Lymph % (Auto) [place] % (Auto) Eos % (Auto) Baso % (Auto) Absolute Neuts (auto) Absolute Lymphs (auto) Total Counted Differential Comment Diff Path Review Platelet Estimate PT 23.3 H INR 2.1 APTT 28.1 Fibrinogen 403 Sodium 150 H Potassium 4.2 Chloride 123 H Carbon Dioxide 21.0 Anion Gap 6 BUN 44 H Creatinine 0.89 Estim Creat Clear Calc 95.18 Est GFR (MDRD) Af Amer 113 Est GFR (MDRD) Non-Af 93 BUN/Creatinine Ratio 49.6 H Glucose 176 H Hemoglobin A1c Lactic Acid Calcium 7.6 L Phosphorus Magnesium Urine Color Urine Clarity Urine pH Ur Specific [place] Urine Protein Urine Glucose (UA) Urine Ketones Urine Occult Blood Urine Nitrite Urine Bilirubin Urine Urobilinogen Ur Leukocyte Esterase Urine RBC Urine WBC Ur Squamous Epith Cells Urine Bacteria Urine Mucus MRSA (PCR) Microbiology 04/19/17 11:00 Stool C. difficile DNA Amplification - Final Assessment/Plan Active and Suspected Problems Neutropenia (Acute) Sepsis (Acute) Thrush of mouth and esophagus (Acute) Thrombocytopenia (Acute) AURELIA (acute kidney injury) (Acute) Dehydration and diarrhea secondary to chemotherapy <Monica Cheek - Last Filed: 04/20/17 08:36> Vital Signs Temp Pulse Resp BP Pulse Ox 97.7 F L 113 H 22 H 77/54 L 99 04/20/17 06:12 04/20/17 06:12 04/20/17 06:12 04/20/17 06:12 04/20/17 06:12 Oxygen Delivery Method Room Air Weight: 168 lb 10.458 oz Body Mass Index (BMI) 23.7 Intake and Output for Last 24 Hours 04/18/17 04/19/17 04/20/17 23:59 23:59 23:59 Intake Total 5763 / 5763 1045 / 1045 Output Total 525 / 525 475 / 475 Balance 5238 / 5238 570 / 570 Labs (Last 48 Hours) 04/19/17 04/19/17 04/19/17 05:56 05:56 05:56 WBC 0.3 L* RBC 4.74 Hgb 14.9 Hct 43.4 MCV 91.6 MCH 31.4 MCHC 34.3 RDW 13.9 RDW Differential 46.3 H Plt Count 34 L* MPV 12.2 H Immature Gran % (Auto) 0.000 Neut % (Auto) 12.1 L Lymph % (Auto) 81.8 H [place] % (Auto) 6.1 Eos % (Auto) 0.0 Baso % (Auto) 0.0 Absolute Neuts (auto) 0.0 L Absolute Lymphs (auto) 0.27 L Total Counted Not Reportable Differential Comment Diff Path Review Reviewed Platelet Estimate PT INR APTT Fibrinogen Sodium 146 H Potassium 4.0 Chloride 117 H Carbon Dioxide 18.0 L Anion Gap 11 BUN 55 H Creatinine 0.93 Estim Creat Clear Calc 91.09 Est GFR (MDRD) Af Amer 107 Est GFR (MDRD) Non-Af 89 BUN/Creatinine Ratio 59.3 H Glucose 163 H Hemoglobin A1c 6.4 H Lactic Acid Calcium 7.4 L Phosphorus Magnesium Urine Color Urine Clarity Urine pH Ur Specific [place] Urine Protein Urine Glucose (UA) Urine Ketones Urine Occult Blood Urine Nitrite Urine Bilirubin Urine Urobilinogen Ur Leukocyte Esterase Urine RBC Urine WBC Ur Squamous Epith Cells Urine Bacteria Urine Mucus MRSA (PCR) Blood Type 04/19/17 04/19/17 04/19/17 05:56 05:56 09:15 WBC RBC Hgb Hct MCV MCH MCHC RDW RDW Differential Plt Count MPV Immature Gran % (Auto) Neut % (Auto) Lymph % (Auto) [place] % (Auto) Eos % (Auto) Baso % (Auto) Absolute Neuts (auto) Absolute Lymphs (auto) Total Counted Differential Comment Diff Path Review Platelet Estimate PT INR APTT Fibrinogen Sodium Potassium Chloride Carbon Dioxide Anion Gap BUN Creatinine Estim Creat Clear Calc Est GFR (MDRD) Af Amer Est GFR (MDRD) Non-Af BUN/Creatinine Ratio Glucose Hemoglobin A1c Lactic Acid Calcium Phosphorus 2.0 L Magnesium 2.7 H Urine Color Yellow Urine Clarity Clear Urine pH 6.0 Ur Specific [place] 1.015 Urine Protein 30 H Urine Glucose (UA) Normal Urine Ketones Negative Urine Occult Blood 50 H Urine Nitrite Negative Urine Bilirubin Negative Urine Urobilinogen Normal Ur Leukocyte Esterase Negative Urine RBC 0-5 SEEN Urine WBC 0 SEEN Ur Squamous Epith Cells 0 SEEN Urine Bacteria RARE Urine Mucus 0 SEEN MRSA (PCR) Blood Type 04/19/17 04/19/17 04/20/17 10:25 11:40 04:45 WBC 0.4 L* RBC 5.26 Hgb 16.6 H Hct 49.0 MCV 93.2 MCH 31.6 MCHC 33.9 RDW 14.5 RDW Differential 49.3 H Plt Count 24 L* MPV 10.6 Immature Gran % (Auto) 0.000 Neut % (Auto) 0.0 L Lymph % (Auto) 100.0 H [place] % (Auto) 0.0 Eos % (Auto) 0.0 Baso % (Auto) 0.0 Absolute Neuts (auto) 0.0 L Absolute Lymphs (auto) 0.42 L Total Counted Not Reportable Differential Comment SCAN Diff Path Review May foll Platelet Estimate MKD DEC PT INR APTT Fibrinogen Sodium Potassium Chloride Carbon Dioxide Anion Gap BUN Creatinine Estim Creat Clear Calc Est GFR (MDRD) Af Amer Est GFR (MDRD) Non-Af BUN/Creatinine Ratio Glucose Hemoglobin A1c Lactic Acid 1.1 Calcium Phosphorus Magnesium Urine Color Urine Clarity Urine pH Ur Specific [place] Urine Protein Urine Glucose (UA) Urine Ketones Urine Occult Blood Urine Nitrite Urine Bilirubin Urine Urobilinogen Ur Leukocyte Esterase Urine RBC Urine WBC Ur Squamous Epith Cells Urine Bacteria Urine Mucus MRSA (PCR) Negative Blood Type 04/20/17 04/20/17 04/20/17 04:45 04:45 07:35 WBC RBC Hgb Hct MCV MCH MCHC RDW RDW Differential Plt Count MPV Immature Gran % (Auto) Neut % (Auto) Lymph % (Auto) [place] % (Auto) Eos % (Auto) Baso % (Auto) Absolute Neuts (auto) Absolute Lymphs (auto) Total Counted Differential Comment Diff Path Review Platelet Estimate PT 23.3 H INR 2.1 APTT 28.1 Fibrinogen 403 Sodium 150 H Potassium 4.2 Chloride 123 H Carbon Dioxide 21.0 Anion Gap 6 BUN 44 H Creatinine 0.89 Estim Creat Clear Calc 95.18 Est GFR (MDRD) Af Amer 113 Est GFR (MDRD) Non-Af 93 BUN/Creatinine Ratio 49.6 H Glucose 176 H Hemoglobin A1c Lactic Acid Calcium 7.6 L Phosphorus Magnesium Urine Color Urine Clarity Urine pH Ur Specific [place] Urine Protein Urine Glucose (UA) Urine Ketones Urine Occult Blood Urine Nitrite Urine Bilirubin Urine Urobilinogen Ur Leukocyte Esterase Urine RBC Urine WBC Ur Squamous Epith Cells Urine Bacteria Urine Mucus MRSA (PCR) Blood Type Pending Microbiology 04/19/17 11:00 Stool C. difficile DNA Amplification - Final
--- NOTE | 2017-04-20 07:48 | PN_ITS ---
Patient Problems: Active and Suspected Problems Neutropenia (Acute) Sepsis (Acute) Thrush of mouth and esophagus (Acute) Thrombocytopenia (Acute) AURELIA (acute kidney injury) (Acute) Dehydration and diarrhea secondary to chemotherapy Subjective: Patient still have mouth sores and watery diarrhea. His abdominal pain is gone. Mild nausea but no vomiting. He denies any bleeding issue. Denies chest pain or shortness of breath. He has borderline hypotensive this morning. Remained afebrile on broad-spectrum antibiotics. - Physical Exam General: Alert, Oriented x3 HEENT: Atraumatic, PERRLA, EOMI Oral: Ulcerations Present, - - Grade 3 mucositis Neck: Supple, No JVD Lungs: Clear to auscultation, Normal air movement Cardiovascular: Regular Rhythm, Normal S1, Normal S2, No murmurs, Tachycardic Abdomen: Bowel Sounds Present, Soft, Non Tender, Non-Distended Extremities: No clubbing, No cyanosis, No edema, - Skin: No rashes, - - No petechiae Lymphatic: No Cervical, Supraclavicular, or Inguinal Adenopathy Neurological: Neuro grossly intact Psych/Mental Status: Normal Affect Vital Signs Temp Pulse Resp BP Pulse Ox 97.7 F L 113 H 22 H 77/54 L 99 04/20/17 06:12 04/20/17 06:12 04/20/17 06:12 04/20/17 06:12 04/20/17 06:12 Oxygen Delivery Method Room Air Weight: 168 lb 10.458 oz Body Mass Index (BMI) 23.7 Intake and Output for Last 24 Hours 04/18/17 04/19/17 04/20/17 23:59 23:59 23:59 Intake Total 5763 / 5763 1045 / 1045 Output Total 525 / 525 475 / 475 Balance 5238 / 5238 570 / 570 Microbiology Past 72 Hours 04/19/17 11:00 C. difficile DNA Amplification - Final Stool Laboratory Tests Past 24 Hrs 04/19/17 04/19/17 04/19/17 05:56 05:56 05:56 WBC RBC Hgb Hct MCV MCH MCHC RDW RDW Differential Plt Count MPV Immature Gran % (Auto) Neut % (Auto) Lymph % (Auto) [place] % (Auto) Eos % (Auto) Baso % (Auto) Absolute Neuts (auto) Absolute Lymphs (auto) Total Counted Not Reportable Differential Comment Diff Path Review Reviewed Platelet Estimate PT INR APTT Fibrinogen Sodium Potassium Chloride Carbon Dioxide Anion Gap BUN Creatinine Estim Creat Clear Calc Est GFR (MDRD) Af Amer Est GFR (MDRD) Non-Af BUN/Creatinine Ratio Glucose Hemoglobin A1c 6.4 H Lactic Acid Calcium Phosphorus Magnesium 2.7 H Urine Color Urine Clarity Urine pH Ur Specific [place] Urine Protein Urine Glucose (UA) Urine Ketones Urine Occult Blood Urine Nitrite Urine Bilirubin Urine Urobilinogen Ur Leukocyte Esterase Urine RBC Urine WBC Ur Squamous Epith Cells Urine Bacteria Urine Mucus MRSA (PCR) 04/19/17 04/19/17 04/19/17 05:56 09:15 10:25 WBC RBC Hgb Hct MCV MCH MCHC RDW RDW Differential Plt Count MPV Immature Gran % (Auto) Neut % (Auto) Lymph % (Auto) [place] % (Auto) Eos % (Auto) Baso % (Auto) Absolute Neuts (auto) Absolute Lymphs (auto) Total Counted Differential Comment Diff Path Review Platelet Estimate PT INR APTT Fibrinogen Sodium Potassium Chloride Carbon Dioxide Anion Gap BUN Creatinine Estim Creat Clear Calc Est GFR (MDRD) Af Amer Est GFR (MDRD) Non-Af BUN/Creatinine Ratio Glucose Hemoglobin A1c Lactic Acid 1.1 Calcium Phosphorus 2.0 L Magnesium Urine Color Yellow Urine Clarity Clear Urine pH 6.0 Ur Specific [place] 1.015 Urine Protein 30 H Urine Glucose (UA) Normal Urine Ketones Negative Urine Occult Blood 50 H Urine Nitrite Negative Urine Bilirubin Negative Urine Urobilinogen Normal Ur Leukocyte Esterase Negative Urine RBC 0-5 SEEN Urine WBC 0 SEEN Ur Squamous Epith Cells 0 SEEN Urine Bacteria RARE Urine Mucus 0 SEEN MRSA (PCR) 04/19/17 04/20/17 04/20/17 11:40 04:45 04:45 WBC 0.4 L* RBC 5.26 Hgb 16.6 H Hct 49.0 MCV 93.2 MCH 31.6 MCHC 33.9 RDW 14.5 RDW Differential 49.3 H Plt Count 24 L* MPV 10.6 Immature Gran % (Auto) 0.000 Neut % (Auto) 0.0 L Lymph % (Auto) 100.0 H [place] % (Auto) 0.0 Eos % (Auto) 0.0 Baso % (Auto) 0.0 Absolute Neuts (auto) 0.0 L Absolute Lymphs (auto) 0.42 L Total Counted Not Reportable Differential Comment SCAN Diff Path Review May foll Platelet Estimate MKD DEC PT INR APTT Fibrinogen Sodium 150 H Potassium 4.2 Chloride 123 H Carbon Dioxide 21.0 Anion Gap 6 BUN 44 H Creatinine 0.89 Estim Creat Clear Calc 95.18 Est GFR (MDRD) Af Amer 113 Est GFR (MDRD) Non-Af 93 BUN/Creatinine Ratio 49.6 H Glucose 176 H Hemoglobin A1c Lactic Acid Calcium 7.6 L Phosphorus Magnesium Urine Color Urine Clarity Urine pH Ur Specific [place] Urine Protein Urine Glucose (UA) Urine Ketones Urine Occult Blood Urine Nitrite Urine Bilirubin Urine Urobilinogen Ur Leukocyte Esterase Urine RBC Urine WBC Ur Squamous Epith Cells Urine Bacteria Urine Mucus MRSA (PCR) Negative 04/20/17 04:45 WBC RBC Hgb Hct MCV MCH MCHC RDW RDW Differential Plt Count MPV Immature Gran % (Auto) Neut % (Auto) Lymph % (Auto) [place] % (Auto) Eos % (Auto) Baso % (Auto) Absolute Neuts (auto) Absolute Lymphs (auto) Total Counted Differential Comment Diff Path Review Platelet Estimate PT 23.3 H INR 2.1 APTT 28.1 Fibrinogen 403 Sodium Potassium Chloride Carbon Dioxide Anion Gap BUN Creatinine Estim Creat Clear Calc Est GFR (MDRD) Af Amer Est GFR (MDRD) Non-Af BUN/Creatinine Ratio Glucose Hemoglobin A1c Lactic Acid Calcium Phosphorus Magnesium Urine Color Urine Clarity Urine pH Ur Specific [place] Urine Protein Urine Glucose (UA) Urine Ketones Urine Occult Blood Urine Nitrite Urine Bilirubin Urine Urobilinogen Ur Leukocyte Esterase Urine RBC Urine WBC Ur Squamous Epith Cells Urine Bacteria Urine Mucus MRSA (PCR) Assessment/Plan Active and Suspected Problems Neutropenia (Acute) Sepsis (Acute) Thrush of mouth and esophagus (Acute) Thrombocytopenia (Acute) AURELIA (acute kidney injury) (Acute) Dehydration and diarrhea secondary to chemotherapy
--- NOTE | 2017-04-20 08:12 | PCM.RX.CS ---
Subjective/Objective Date: 04/20/17 Time: 08:12 Antibiotic: Meropenem, Vancomycin Type of Consult: New start Indications for Therapy: Neutropenic Fever/Port Labs: Sodium 150 mmol/L (136-145) H 04/20/17 04:45 Potassium 4.2 mmol/L (3.5-5.1) 04/20/17 04:45 Chloride 123 mmol/L (98-107) H 04/20/17 04:45 Carbon Dioxide 21.0 mmol/L (21.0-32.0) 04/20/17 04:45 Anion Gap 6 (5-15) 04/20/17 04:45 BUN 44 mg/dL (7-18) H 04/20/17 04:45 Creatinine 0.89 mg/dL (0.70-1.30) 04/20/17 04:45 Est GFR (MDRD) Af Amer 113 mL/min (>60) 04/20/17 04:45 Est GFR (MDRD) Non-Af 93 mL/min (>60) 04/20/17 04:45 BUN/Creatinine Ratio 49.6 RATIO (10-20) H 04/20/17 04:45 Glucose 176 mg/dL (74-106) H 04/20/17 04:45 Estimated Creatinine Clearance: 90-100 mL/min Pharmacy Plan for Drug Dosing: Goal vancomycin trough 10-15 mcg/mL. Recommend vancomycin 1250mg IV q12h for est trough approx 15 mcg/mL. Check trough if still active Mon afternoon. Pharmacy Service will continue to monitor and adjust dosing as required. Pharmacy to order these labs: Trough - Vancomycin Labs to be done on (date): 04/21/17 Labs to be done (time): 12:00
--- NOTE | 2017-04-20 08:19 | PN_ITS ---
Subjective: The patient was seen and examined at the bedside this morning. Events from the last 24 hours have been reviewed. The patient is currently afebrile, tachycardic with low normal blood pressures. The patient remains stable from an oxygenation standpoint on room air. The patient is overall net +5.8 L for the admission. Blood counts remain low this morning with a platelet count of 24 ,000. Sodium and chloride are both elevated to 150 and 123, respectively. The patient continues to have a great deal of oropharyngeal pain along with odynophagia. Oral secretions continue to pool. Objective: The patient's most recent lab work, culture data and imaging studies have all been personally reviewed. Blood and urine cultures are pending. C. difficile was negative. O&P are pending. Surface echocardiogram revealed normal LV size and thickness with an ejection fraction of 60%. General: Alert, Cooperative, No apparent distress HEENT: Atraumatic, PERRLA, Normocephalic Oral: Dry Mucosa, - - Diffuse mucositis. Thrush is present. Pooling of oral secretions. Neck: Supple, No Nodes, Trachea Midline Lungs: No rhonchi, No wheeze, No rales, Diminished Cardiovascular: Normal S1, Normal S2, No murmurs, Tachycardic, - - Chest port remains in place. Abdomen: Bowel Sounds Present, Soft, Non Tender Extremities: No clubbing, No cyanosis, No edema Skin: - - No significant change from previous Musculoskeletal: No Tenderness to Palpation of Joints or Extremities Lymphatic: No Cervical, Supraclavicular, or Inguinal Adenopathy Neurological: Neuro grossly intact Psych/Mental Status: Flat Affect Vital Signs Temp Pulse Resp BP Pulse Ox 97.7 F L 113 H 22 H 77/54 L 99 04/20/17 06:12 04/20/17 06:12 04/20/17 06:12 04/20/17 06:12 04/20/17 06:12 Oxygen Delivery Method Room Air Weight: 168 lb 10.458 oz Body Mass Index (BMI) 23.7 Intake and Output for Last 24 Hours 04/18/17 04/19/17 04/20/17 23:59 23:59 23:59 Intake Total 5763 / 5763 1045 / 1045 Output Total 525 / 525 475 / 475 Balance 5238 / 5238 570 / 570 Labs (Last 48 Hours) 04/19/17 04/19/17 04/19/17 05:56 05:56 05:56 WBC 0.3 L* RBC 4.74 Hgb 14.9 Hct 43.4 MCV 91.6 MCH 31.4 MCHC 34.3 RDW 13.9 RDW Differential 46.3 H Plt Count 34 L* MPV 12.2 H Immature Gran % (Auto) 0.000 Neut % (Auto) 12.1 L Lymph % (Auto) 81.8 H [place] % (Auto) 6.1 Eos % (Auto) 0.0 Baso % (Auto) 0.0 Absolute Neuts (auto) 0.0 L Absolute Lymphs (auto) 0.27 L Total Counted Not Reportable Differential Comment Diff Path Review Reviewed Platelet Estimate PT INR APTT Fibrinogen Sodium 146 H Potassium 4.0 Chloride 117 H Carbon Dioxide 18.0 L Anion Gap 11 BUN 55 H Creatinine 0.93 Estim Creat Clear Calc 91.09 Est GFR (MDRD) Af Amer 107 Est GFR (MDRD) Non-Af 89 BUN/Creatinine Ratio 59.3 H Glucose 163 H Hemoglobin A1c 6.4 H Lactic Acid Calcium 7.4 L Phosphorus Magnesium Urine Color Urine Clarity Urine pH Ur Specific [place] Urine Protein Urine Glucose (UA) Urine Ketones Urine Occult Blood Urine Nitrite Urine Bilirubin Urine Urobilinogen Ur Leukocyte Esterase Urine RBC Urine WBC Ur Squamous Epith Cells Urine Bacteria Urine Mucus MRSA (PCR) Blood Type 04/19/17 04/19/17 04/19/17 05:56 05:56 09:15 WBC RBC Hgb Hct MCV MCH MCHC RDW RDW Differential Plt Count MPV Immature Gran % (Auto) Neut % (Auto) Lymph % (Auto) [place] % (Auto) Eos % (Auto) Baso % (Auto) Absolute Neuts (auto) Absolute Lymphs (auto) Total Counted Differential Comment Diff Path Review Platelet Estimate PT INR APTT Fibrinogen Sodium Potassium Chloride Carbon Dioxide Anion Gap BUN Creatinine Estim Creat Clear Calc Est GFR (MDRD) Af Amer Est GFR (MDRD) Non-Af BUN/Creatinine Ratio Glucose Hemoglobin A1c Lactic Acid Calcium Phosphorus 2.0 L Magnesium 2.7 H Urine Color Yellow Urine Clarity Clear Urine pH 6.0 Ur Specific [place] 1.015 Urine Protein 30 H Urine Glucose (UA) Normal Urine Ketones Negative Urine Occult Blood 50 H Urine Nitrite Negative Urine Bilirubin Negative Urine Urobilinogen Normal Ur Leukocyte Esterase Negative Urine RBC 0-5 SEEN Urine WBC 0 SEEN Ur Squamous Epith Cells 0 SEEN Urine Bacteria RARE Urine Mucus 0 SEEN MRSA (PCR) Blood Type 04/19/17 04/19/17 04/20/17 10:25 11:40 04:45 WBC 0.4 L* RBC 5.26 Hgb 16.6 H Hct 49.0 MCV 93.2 MCH 31.6 MCHC 33.9 RDW 14.5 RDW Differential 49.3 H Plt Count 24 L* MPV 10.6 Immature Gran % (Auto) 0.000 Neut % (Auto) 0.0 L Lymph % (Auto) 100.0 H [place] % (Auto) 0.0 Eos % (Auto) 0.0 Baso % (Auto) 0.0 Absolute Neuts (auto) 0.0 L Absolute Lymphs (auto) 0.42 L Total Counted Not Reportable Differential Comment SCAN Diff Path Review May foll Platelet Estimate MKD DEC PT INR APTT Fibrinogen Sodium Potassium Chloride Carbon Dioxide Anion Gap BUN Creatinine Estim Creat Clear Calc Est GFR (MDRD) Af Amer Est GFR (MDRD) Non-Af BUN/Creatinine Ratio Glucose Hemoglobin A1c Lactic Acid 1.1 Calcium Phosphorus Magnesium Urine Color Urine Clarity Urine pH Ur Specific [place] Urine Protein Urine Glucose (UA) Urine Ketones Urine Occult Blood Urine Nitrite Urine Bilirubin Urine Urobilinogen Ur Leukocyte Esterase Urine RBC Urine WBC Ur Squamous Epith Cells Urine Bacteria Urine Mucus MRSA (PCR) Negative Blood Type 04/20/17 04/20/17 04/20/17 04:45 04:45 07:35 WBC RBC Hgb Hct MCV MCH MCHC RDW RDW Differential Plt Count MPV Immature Gran % (Auto) Neut % (Auto) Lymph % (Auto) [place] % (Auto) Eos % (Auto) Baso % (Auto) Absolute Neuts (auto) Absolute Lymphs (auto) Total Counted Differential Comment Diff Path Review Platelet Estimate PT 23.3 H INR 2.1 APTT 28.1 Fibrinogen 403 Sodium 150 H Potassium 4.2 Chloride 123 H Carbon Dioxide 21.0 Anion Gap 6 BUN 44 H Creatinine 0.89 Estim Creat Clear Calc 95.18 Est GFR (MDRD) Af Amer 113 Est GFR (MDRD) Non-Af 93 BUN/Creatinine Ratio 49.6 H Glucose 176 H Hemoglobin A1c Lactic Acid Calcium 7.6 L Phosphorus Magnesium Urine Color Urine Clarity Urine pH Ur Specific [place] Urine Protein Urine Glucose (UA) Urine Ketones Urine Occult Blood Urine Nitrite Urine Bilirubin Urine Urobilinogen Ur Leukocyte Esterase Urine RBC Urine WBC Ur Squamous Epith Cells Urine Bacteria Urine Mucus MRSA (PCR) Blood Type Pending Microbiology 04/19/17 11:00 Stool C. difficile DNA Amplification - Final Clinical Impression(s) from Imaging Studies Chest X-Ray 04/18/17 13:50 IMPRESSION: No acute abnormality is seen. Electronically Signed: Kris Britt MD at 14:13 EST Tel [phone], Service support , Chest X-Ray 04/19/17 10:17 IMPRESSION: No acute abnormality is seen. Electronically Signed: Kris Britt MD at 10:56 EST Tel [phone], Service support , Assessment/Plan Active and Suspected Problems Neutropenia (Acute) Sepsis (Acute) Thrush of mouth and esophagus (Acute) Thrombocytopenia (Acute) AURELIA (acute kidney injury) (Acute) Dehydration and diarrhea secondary to chemotherapy RECOMMENDATIONS: 1. Continue antibiotics per ID recommendations. 2. Continue D5W for supplemental hydration, given climbing sodium and chloride levels. 3. If hypotension persists, recommend initiation of Levophed to maintain a mean arterial pressure at or above 65 mmHg. 4. Platelet transfusion 5. Patient to remain n.p.o. TPN will be started today. PICC line will be placed accordingly. IMPRESSIONS: 1. Severe sepsis/neutropenic fever The patient recently received chemotherapy. He currently reports the presence of dysphasia and odynophagia. Continue broad-spectrum antibiotics per infectious disease recommendations, pending infectious workup. Blood, urine and C. difficile PCR pending. Discontinue supplemental IV fluids, as the patient has been more than adequately volume resuscitated and is currently hemodynamically stable. If the patient does become hypotensive, recommend initiation of Levophed to maintain a mean arterial pressure at or above 65 mmHg. Patient to remain n.p.o. for now. 2. Acute kidney injury, likely prerenal in etiology Improved following IV fluid hydration. Urine output is appropriate. No indication for renal replacement therapy at this time. 3. Thrombocytopenia secondary to chemotherapy Transfusion plan today. Continue to monitor coags. 4. Severe mucositis Continue current supportive measures. Continue as needed BMX liquid. We will add budesonide. 5. Personal history of pancreatic/rectal cancer/depression Complicates care, management, recovery and prognosis. Oncology is following at this time. Continue current supportive measures. This note was generated with [employer] dictation software. It may contain incorrect words, spelling, and punctuation that were not noted in checking the note before signing. Code Visit Inpatient E&M: 13856 Subs Hosp L3
[2017-04-20] MEDS: Menthol/Lanolin/Calamine/Znox 113 GM Tube 1 APPLIC TOPICAL ×2 (09:39→22:02)
--- NOTE | 2017-04-20 10:25 | CASEMGMT ---
SW received a call from Nerissa at [facility] that they have a palliative referral for pt but have not been able to reach pt's . Nerissa states they can meet w/ tomorrow at 9am. RADHA spoke w/, she can be here for a meeting w/palliative tomorrow at 9am. Nerissa from [facility] aware. PHIL Carreon, PRODUCTION TEAM LEADER
--- NOTE | 2017-04-20 10:31 | RAD_ITS ---
STUDY: X-RAY CHEST REASON FOR EXAM: Male, 61 years old. PICC line placement. TECHNIQUE: Single AP portable view of the chest. COMPARISON: Comparison is made with prior study dated April 19, 2017. FINDINGS: A right-sided PICC line catheter is seen. The tip is in the left brachiocephalic vein as it enters the superior vena cava. RAD/CXR for Line Placement IMPRESSION: The tip of the right PICC line catheter is in the left brachiocephalic vein as it enters the superior vena cava. Electronically Signed: Kris Britt MD at 11:20 EST Tel [phone], Service support ,
--- NOTE | 2017-04-20 10:36 | CASEMGMT ---
See RN CM Assessment Link. Pt continues in ICU. TPN will be started. RN CM and SW will continue to follow and assist with dc needs as pt condition improves.
--- NOTE | 2017-04-20 11:15 | RAD_ITS ---
STUDY: X-RAY CHEST REASON FOR EXAM: Male, 61 years old. PICC line placement. TECHNIQUE: Single AP portable view of the chest. COMPARISON: Comparison is made with prior examination of earlier today at 10:49 AM. FINDINGS: The tip of the right PICC line catheter is at the junction of the superior vena cava and right atrium. RAD/CXR for Line Placement IMPRESSION: The tip of the right-sided PICC line catheter is at the junction of the superior vena cava and right atrium. Electronically Signed: Kris Britt MD at 12:13 EST Tel [phone], Service support ,
[2017-04-20] MEDS: Budesonide Respules 0.5 MG/2 ML AMPUL.NEB. INHALATION ×2 (11:36→22:55)
--- NOTE | 2017-04-20 11:43 | PN.ID_ITS ---
Patient Problems: Active and Suspected Problems Neutropenia (Acute) Sepsis (Acute) Thrush of mouth and esophagus (Acute) Thrombocytopenia (Acute) AURELIA (acute kidney injury) (Acute) Dehydration and diarrhea secondary to chemotherapy Subjective: Mouth feels better. Picc placed. No fever, diarrhea improved. - Physical Exam General: Alert, Cooperative, - - ill appearing HEENT: - Oral: Ulcerations Present - diffuse mucositis Lungs: Clear to auscultation, Normal air movement Cardiovascular: Tachycardic Abdomen: Soft, Non Tender, Non-Distended Skin: No rashes Vital Signs Temp Pulse Resp BP Pulse Ox 98.0 F 118 H 15 86/68 L 99 04/20/17 08:00 04/20/17 10:03 04/20/17 10:03 04/20/17 10:03 04/20/17 10:03 Oxygen Delivery Method Room Air Weight: 76.5 kg Body Mass Index (BMI) 23.7 Intake and Output for Last 24 Hours 04/18/17 04/19/17 04/20/17 23:59 23:59 23:59 Intake Total 5763 / 5763 1045 / 1045 Output Total 525 / 525 475 / 475 Balance 5238 / 5238 570 / 570 Microbiology Past 72 Hours 04/19/17 11:00 C. difficile DNA Amplification - Final Stool Laboratory Tests Past 24 Hrs 04/19/17 04/19/17 04/20/17 05:56 11:40 04:45 WBC 0.4 L* RBC 5.26 Hgb 16.6 H Hct 49.0 MCV 93.2 MCH 31.6 MCHC 33.9 RDW 14.5 RDW Differential 49.3 H Plt Count 24 L* MPV 10.6 Immature Gran % (Auto) 0.000 Neut % (Auto) 0.0 L Lymph % (Auto) 100.0 H [place] % (Auto) 0.0 Eos % (Auto) 0.0 Baso % (Auto) 0.0 Absolute Neuts (auto) 0.0 L Absolute Lymphs (auto) 0.42 L Total Counted Not Reportable Differential Comment SCAN Diff Path Review Reviewed June foll Platelet Estimate MKD DEC PT INR APTT Fibrinogen Sodium Potassium Chloride Carbon Dioxide Anion Gap BUN Creatinine Estim Creat Clear Calc Est GFR (MDRD) Af Amer Est GFR (MDRD) Non-Af BUN/Creatinine Ratio Glucose Calcium MRSA (PCR) Negative Blood Type 04/20/17 04/20/17 04/20/17 04:45 04:45 07:35 WBC RBC Hgb Hct MCV MCH MCHC RDW RDW Differential Plt Count MPV Immature Gran % (Auto) Neut % (Auto) Lymph % (Auto) [place] % (Auto) Eos % (Auto) Baso % (Auto) Absolute Neuts (auto) Absolute Lymphs (auto) Total Counted Differential Comment Diff Path Review Platelet Estimate PT 23.3 H INR 2.1 APTT 28.1 Fibrinogen 403 Sodium 150 H Potassium 4.2 Chloride 123 H Carbon Dioxide 21.0 Anion Gap 6 BUN 44 H Creatinine 0.89 Estim Creat Clear Calc 95.18 Est GFR (MDRD) Af Amer 113 Est GFR (MDRD) Non-Af 93 BUN/Creatinine Ratio 49.6 H Glucose 176 H Calcium 7.6 L MRSA (PCR) Blood Type A NEGATIVE Route of nutrition/ use of supplements: [] Nutritional Intake: [] IV Site: [] Morgan Catheter: [] - Assessment/Plan Antibiotics: [] Assessment/Plan: [] Active and Suspected Problems Sepsis (Acute) Thrush of mouth and esophagus (Acute) AURELIA (acute kidney injury) (Acute) Neutropenic fever with thrush and recent chemo. Continue vanc/edwige/ fluconazole. Cdiff was neg. D/w primary team, will follow
[2017-04-20 13:48] LABS: Pathologist Review Reviewed
--- NOTE | 2017-04-20 17:43 | NURSING ---
0930 DISCUSSED SAFETY OF PORT AND PICC IN C WITH DR. DEE. SHE WAS NOT CONCERNED ANY DID NOT WANT TO ORDER ANY TEST FOR EVALUATION, WANTS PICC PLACED.
[2017-04-20 18:31] LABS: Bedside Glucose 305 mg/dL (70-110)
[2017-04-20 20:16] LABS: Bedside Glucose 271 mg/dL (70-110)
[2017-04-21] VITALS (40 sets, daily range): BP systolic 73–117; BP diastolic 46–101; PULSE 110–133; RESP 12–21; TEMP 36.3–37.3; O2SAT 94–100
[2017-04-21 02:31] LABS: Bedside Glucose 244 mg/dL (70-110)
[2017-04-21 05:00] LABS: Anion Gap 7 (5-15); BUN 41 mg/dL (7-18); BUN/Creat Ratio 50.9 RATIO (10-20); Calcium,Total 7.4 mg/dL (8.5-10.1); Chloride 121 mmol/L (98-107); Creatinine, Serum 0.81 mg/dL (0.70-1.30); EST Glomerular Filtration Rate 104 mL/min (>60); Est Glom Filt Rate - Afr Amer 126 mL/min (>60); Estimated Creatinine Clearance 104.58 ml/min; Glucose 243 mg/dL (74-106); Magnesium 2.2 mg/dL (1.6-2.6); Phosphorus 1.4 mg/dL (2.5-4.9); Sodium Level 149 mmol/L (136-145)
--- NOTE | 2017-04-21 05:00 | NURSING ---
upon returning to room to remove pt from bedpan this RN noticed that pt pulled out his PICC in his NICHOLE; Dr. Tello was notified immediately. the site appears to be intact with no swelling. dressing applied. and TPN placed on hold; levophed was connected to the pt's port.
[2017-04-21 05:02] LABS: International Normalized Ratio 1.8; Prothrombin Time (Protime)PT. 20.6 SECONDS (11.7-14.9)
[2017-04-21 05:03] LABS: Partial Thromboplast Time 42.7 Seconds (24.1-36.2)
[2017-04-21 05:49] LABS: Fibrinogen 420 mg/dl (203-444)
[2017-04-21] MEDS: Octreotide 0.1 MG/ML ML SC ×3 (06:02→22:18)
[2017-04-21 06:26] LABS: Bedside Glucose 177 mg/dL (70-110)
--- NOTE | 2017-04-21 07:09 | PCM.PN.INT ---
Subjective: The patient was seen and examined at the bedside this morning. Events from the last 24 hours have been reviewed. The patient is currently afebrile, but remains tachycardic. The patient is currently overall net +9.6 L for the admission. Despite this, he remains on room air. Overnight, the patient did require initiation of levophed to maintain hemodynamic stability. The patient also inadvertently pulled out his PICC line last evening. This morning, the patient does report some interval improvement in his mouth pain. Objective: The patient's most recent lab work, culture data and imaging studies have all been personally reviewed. Blood and urine cultures are pending. C. difficile was negative. O&P are pending. Surface echocardiogram revealed normal LV size and thickness with an ejection fraction of 60%. General: Alert, Cooperative, No apparent distress HEENT: Atraumatic, PERRLA, Normocephalic Oral: - - Severe mucositis with dry/crusted oral secretions. Neck: Supple, No Nodes, Trachea Midline Lungs: No rhonchi, No wheeze, No rales, Diminished Cardiovascular: Normal S1, Normal S2, No murmurs, Tachycardic, - - Chest port in place Abdomen: Soft, Non Tender, Non-Distended, Hypoactive Bowel Sounds Extremities: No clubbing, No cyanosis, No edema Skin: - - No significant change from previous. Musculoskeletal: No Tenderness to Palpation of Joints or Extremities Lymphatic: No Cervical, Supraclavicular, or Inguinal Adenopathy Neurological: Neuro grossly intact Psych/Mental Status: Normal Affect, Appropriate Vital Signs Temp Pulse Resp BP Pulse Ox 98.2 F 115 H 16 94/73 99 04/21/17 06:07 04/21/17 06:07 04/21/17 06:07 04/21/17 06:07 04/21/17 06:07 Oxygen Delivery Method Room Air Weight: 179 lb 0.246 oz Body Mass Index (BMI) 23.7 Intake and Output for Last 24 Hours 04/19/17 04/20/17 04/21/17 23:59 23:59 23:59 Intake Total 5763 / 5763 4911 / 4911 962 / 962 Output Total 525 / 525 1220 / 1220 220 / 220 Balance 5238 / 5238 3691 / 3691 742 / 742 Labs (Last 48 Hours) 04/19/17 04/19/17 04/19/17 05:56 05:56 05:56 WBC RBC Hgb Hct MCV MCH MCHC RDW RDW Differential Plt Count MPV Immature Gran % (Auto) Neut % (Auto) Lymph % (Auto) Gordon % (Auto) Eos % (Auto) Baso % (Auto) Absolute Neuts (auto) Absolute Lymphs (auto) Total Counted Not Reportable Differential Comment Diff Path Review Reviewed Platelet Estimate PT INR APTT Fibrinogen Sodium 146 H Potassium 4.0 Chloride 117 H Carbon Dioxide 18.0 L Anion Gap 11 BUN 55 H Creatinine 0.93 Estim Creat Clear Calc 91.09 Est GFR (MDRD) Af Amer 107 Est GFR (MDRD) Non-Af 89 BUN/Creatinine Ratio 59.3 H Glucose 163 H Hemoglobin A1c 6.4 H Lactic Acid Calcium 7.4 L Phosphorus Magnesium Urine Color Urine Clarity Urine pH Ur Specific [place] Urine Protein Urine Glucose (UA) Urine Ketones Urine Occult Blood Urine Nitrite Urine Bilirubin Urine Urobilinogen Ur Leukocyte Esterase Urine RBC Urine WBC Ur Squamous Epith Cells Urine Bacteria Urine Mucus MRSA (PCR) Miscellaneous Test POC Glucose Blood Type 04/19/17 04/19/17 04/19/17 05:56 05:56 09:15 WBC RBC Hgb Hct MCV MCH MCHC RDW RDW Differential Plt Count MPV Immature Gran % (Auto) Neut % (Auto) Lymph % (Auto) Gordon % (Auto) Eos % (Auto) Baso % (Auto) Absolute Neuts (auto) Absolute Lymphs (auto) Total Counted Differential Comment Diff Path Review Platelet Estimate PT INR APTT Fibrinogen Sodium Potassium Chloride Carbon Dioxide Anion Gap BUN Creatinine Estim Creat Clear Calc Est GFR (MDRD) Af Amer Est GFR (MDRD) Non-Af BUN/Creatinine Ratio Glucose Hemoglobin A1c Lactic Acid Calcium Phosphorus 2.0 L Magnesium 2.7 H Urine Color Yellow Urine Clarity Clear Urine pH 6.0 Ur Specific [place] 1.015 Urine Protein 30 H Urine Glucose (UA) Normal Urine Ketones Negative Urine Occult Blood 50 H Urine Nitrite Negative Urine Bilirubin Negative Urine Urobilinogen Normal Ur Leukocyte Esterase Negative Urine RBC 0-5 SEEN Urine WBC 0 SEEN Ur Squamous Epith Cells 0 SEEN Urine Bacteria RARE Urine Mucus 0 SEEN MRSA (PCR) Miscellaneous Test POC Glucose Blood Type 04/19/17 04/19/17 04/20/17 10:25 11:40 04:45 WBC 0.4 L* RBC 5.26 Hgb 16.6 H Hct 49.0 MCV 93.2 MCH 31.6 MCHC 33.9 RDW 14.5 RDW Differential 49.3 H Plt Count 24 L* MPV 10.6 Immature Gran % (Auto) 0.000 Neut % (Auto) 0.0 L Lymph % (Auto) 100.0 H Gordon % (Auto) 0.0 Eos % (Auto) 0.0 Baso % (Auto) 0.0 Absolute Neuts (auto) 0.0 L Absolute Lymphs (auto) 0.42 L Total Counted Not Reportable Differential Comment SCAN Diff Path Review Reviewed Platelet Estimate MKD DEC PT INR APTT Fibrinogen Sodium Potassium Chloride Carbon Dioxide Anion Gap BUN Creatinine Estim Creat Clear Calc Est GFR (MDRD) Af Amer Est GFR (MDRD) Non-Af BUN/Creatinine Ratio Glucose Hemoglobin A1c Lactic Acid 1.1 Calcium Phosphorus Magnesium Urine Color Urine Clarity Urine pH Ur Specific [place] Urine Protein Urine Glucose (UA) Urine Ketones Urine Occult Blood Urine Nitrite Urine Bilirubin Urine Urobilinogen Ur Leukocyte Esterase Urine RBC Urine WBC Ur Squamous Epith Cells Urine Bacteria Urine Mucus MRSA (PCR) Negative Miscellaneous Test POC Glucose Blood Type 04/20/17 04/20/17 04/20/17 04:45 04:45 07:35 WBC RBC Hgb Hct MCV MCH MCHC RDW RDW Differential Plt Count MPV Immature Gran % (Auto) Neut % (Auto) Lymph % (Auto) Gordon % (Auto) Eos % (Auto) Baso % (Auto) Absolute Neuts (auto) Absolute Lymphs (auto) Total Counted Differential Comment Diff Path Review Platelet Estimate PT 23.3 H INR 2.1 APTT 28.1 Fibrinogen 403 Sodium 150 H Potassium 4.2 Chloride 123 H Carbon Dioxide 21.0 Anion Gap 6 BUN 44 H Creatinine 0.89 Estim Creat Clear Calc 95.18 Est GFR (MDRD) Af Amer 113 Est GFR (MDRD) Non-Af 93 BUN/Creatinine Ratio 49.6 H Glucose 176 H Hemoglobin A1c Lactic Acid Calcium 7.6 L Phosphorus Magnesium Urine Color Urine Clarity Urine pH Ur Specific [place] Urine Protein Urine Glucose (UA) Urine Ketones Urine Occult Blood Urine Nitrite Urine Bilirubin Urine Urobilinogen Ur Leukocyte Esterase Urine RBC Urine WBC Ur Squamous Epith Cells Urine Bacteria Urine Mucus MRSA (PCR) Miscellaneous Test POC Glucose Blood Type A NEGATIVE 04/20/17 04/20/17 04/20/17 17:10 18:25 20:07 WBC RBC Hgb Hct MCV MCH MCHC RDW RDW Differential Plt Count MPV Immature Gran % (Auto) Neut % (Auto) Lymph % (Auto) Gordon % (Auto) Eos % (Auto) Baso % (Auto) Absolute Neuts (auto) Absolute Lymphs (auto) Total Counted Differential Comment Diff Path Review Platelet Estimate PT INR APTT Fibrinogen Sodium Potassium Chloride Carbon Dioxide Anion Gap BUN Creatinine Estim Creat Clear Calc Est GFR (MDRD) Af Amer Est GFR (MDRD) Non-Af BUN/Creatinine Ratio Glucose Hemoglobin A1c Lactic Acid Calcium Phosphorus Magnesium Urine Color Urine Clarity Urine pH Ur Specific [place] Urine Protein Urine Glucose (UA) Urine Ketones Urine Occult Blood Urine Nitrite Urine Bilirubin Urine Urobilinogen Ur Leukocyte Esterase Urine RBC Urine WBC Ur Squamous Epith Cells Urine Bacteria Urine Mucus MRSA (PCR) Miscellaneous Test Pending POC Glucose 305 H 271 H Blood Type 04/20/17 04/21/17 04/21/17 23:38 04:35 04:35 WBC RBC Hgb Hct MCV MCH MCHC RDW RDW Differential Plt Count MPV Immature Gran % (Auto) Neut % (Auto) Lymph % (Auto) Gordon % (Auto) Eos % (Auto) Baso % (Auto) Absolute Neuts (auto) Absolute Lymphs (auto) Total Counted Differential Comment Diff Path Review Platelet Estimate PT 20.6 H INR 1.8 APTT 42.7 H Fibrinogen 420 Sodium 149 H Potassium 4.0 Chloride 121 H Carbon Dioxide 21.0 Anion Gap 7 BUN 41 H Creatinine 0.81 Estim Creat Clear Calc 104.58 Est GFR (MDRD) Af Amer 126 Est GFR (MDRD) Non-Af 104 BUN/Creatinine Ratio 50.9 H Glucose 243 H Hemoglobin A1c Lactic Acid Calcium 7.4 L Phosphorus 1.4 L Magnesium 2.2 Urine Color Urine Clarity Urine pH Ur Specific [place] Urine Protein Urine Glucose (UA) Urine Ketones Urine Occult Blood Urine Nitrite Urine Bilirubin Urine Urobilinogen Ur Leukocyte Esterase Urine RBC Urine WBC Ur Squamous Epith Cells Urine Bacteria Urine Mucus MRSA (PCR) Miscellaneous Test POC Glucose 244 H Blood Type 04/21/17 06:18 WBC RBC Hgb Hct MCV MCH MCHC RDW RDW Differential Plt Count MPV Immature Gran % (Auto) Neut % (Auto) Lymph % (Auto) Gordon % (Auto) Eos % (Auto) Baso % (Auto) Absolute Neuts (auto) Absolute Lymphs (auto) Total Counted Differential Comment Diff Path Review Platelet Estimate PT INR APTT Fibrinogen Sodium Potassium Chloride Carbon Dioxide Anion Gap BUN Creatinine Estim Creat Clear Calc Est GFR (MDRD) Af Amer Est GFR (MDRD) Non-Af BUN/Creatinine Ratio Glucose Hemoglobin A1c Lactic Acid Calcium Phosphorus Magnesium Urine Color Urine Clarity Urine pH Ur Specific [place] Urine Protein Urine Glucose (UA) Urine Ketones Urine Occult Blood Urine Nitrite Urine Bilirubin Urine Urobilinogen Ur Leukocyte Esterase Urine RBC Urine WBC Ur Squamous Epith Cells Urine Bacteria Urine Mucus MRSA (PCR) Miscellaneous Test POC Glucose 177 H Blood Type Microbiology 04/19/17 11:00 Stool C. difficile DNA Amplification - Final Clinical Impression(s) from Imaging Studies Chest X-Ray 04/18/17 13:50 IMPRESSION: No acute abnormality is seen. Electronically Signed: Kris Britt MD at 14:13 EST Tel [phone], Service support , Chest X-Ray 04/19/17 10:17 IMPRESSION: No acute abnormality is seen. Electronically Signed: Kris Britt MD at 10:56 EST Tel [phone], Service support , Chest X-Ray 04/20/17 10:31 IMPRESSION: The tip of the right PICC line catheter is in the left brachiocephalic vein as it enters the superior vena cava. Electronically Signed: Kris Britt MD at 11:20 EST Tel [phone], Service support , Chest X-Ray 04/20/17 11:15 IMPRESSION: The tip of the right-sided PICC line catheter is at the junction of the superior vena cava and right atrium. Electronically Signed: Kris Britt MD at 12:13 EST Tel [phone], Service support , Assessment/Plan Active and Suspected Problems Neutropenia (Acute) Sepsis (Acute) Thrush of mouth and esophagus (Acute) Thrombocytopenia (Acute) AURELIA (acute kidney injury) (Acute) Dehydration and diarrhea secondary to chemotherapy RECOMMENDATIONS: 1. Continue antibiotics per ID recommendations. 2. Continue D5W for supplemental hydration for now. 3. Continue Levophed to maintain a mean arterial pressure at or above 65 mmHg. 4. Administer vitamin K 5. Transfuse platelets if less than 20K 6. Replace PICC line today and restart TPN 7. Continue work with physical therapy IMPRESSIONS: 1. Septic shock/neutropenic fever The patient recently received chemotherapy. He currently reports the presence of dysphasia and odynophagia. Continue broad-spectrum antibiotics per infectious disease recommendations. Continue supplemental IV fluid hydration as ordered. Continue Levophed to maintain a mean arterial pressure at or above 65 mmHg. Patient to remain n.p.o. for now. PICC line will be replaced today and TPN can be resumed. 2. Acute kidney injury, likely prerenal in etiology Improved following IV fluid hydration. Urine output is appropriate. No indication for renal replacement therapy at this time. 3. Thrombocytopenia secondary to chemotherapy/coagulopathy Transfuse if platelet count falls below 20,000. Administer vitamin K. Recheck coags in the morning. 4. Severe mucositis Continue current supportive measures. Continue as needed BMX liquid, along with budesonide. 5. Hypophosphatemia Electrolyte repletion as indicated. Recheck level tomorrow. 6. Personal history of pancreatic/rectal cancer/depression Complicates care, management, recovery and prognosis. Oncology is following at this time. Continue current supportive measures. This note was generated with [employer] software. It may contain incorrect words, spelling, and punctuation that were not noted in checking the note before signing. Code Visit Inpatient E&M: 26745 Subs Hosp L3
--- NOTE | 2017-04-21 07:11 | PCM.PN.HOSP ---
Patient Problems: Active and Suspected Problems Neutropenia (Acute) Sepsis (Acute) Thrush of mouth and esophagus (Acute) Thrombocytopenia (Acute) AURELIA (acute kidney injury) (Acute) Dehydration and diarrhea secondary to chemotherapy Subjective: Patient overnight stable however blood pressures did decrease with map less than 65 therefore low-dose NEP initiated following attempt D5W 1L bolus x 2, improved. Patient 04/21/17 AM with accidental PICC Line d/c. Patient notes mouth less painful and able to open a bit more but still severely limited and uncomfortable. Notes being very weak with attempts from bedside commode to bed. Patient denies fevers, chills, nausea, emesis, abdominal pain, chest pain or dyspnea. Objective: Physical Examination: General: awake, alert, oriented x 3 and cooperative, transitioning from bedside commode to bed, very weak, notes mouth does feel improved, still painful. Skin: normal color, turgor, no icterus, cyanosis. HEENT: AT/NC, EOMI, PERRLA, improved oral appearance, still severely dry, crusted lesions inside the mouth, able to open his mouth a bit more, thrush still present. Lungs: Diminished BS BL, > bases, poor effort, no rales, ronchi or wheezing. Heart: Tachycardic with regular rhythm; no gallop, rub audible, port in place. Abdomen: soft, thin habitus, NTTP, ND, hypoactive BS. Extremities: no cyanosis, clubbing, or edema. Neurological: patient awake, alert, oriented x 3; cognitive function intact; pupils equally reactive to light and accomodation; cranial nerves II-XII grossly normal, moving all 4 extremities, no focal deficits, strength severely globally decreased secondary to acute presentation. Psychiatric: affect appears improved, no acute evidence of depressive or anxiety feelings. Vitals/I&O's: Vital Signs Temp Pulse Resp BP Pulse Ox 98.2 F 115 H 16 94/73 99 04/21/17 06:07 04/21/17 06:07 04/21/17 06:07 04/21/17 06:07 04/21/17 06:07 Oxygen Delivery Method Room Air Weight: 179 lb 0.246 oz Body Mass Index (BMI) 23.7 Intake and Output for Last 24 Hours 04/19/17 04/20/17 04/21/17 23:59 23:59 23:59 Intake Total 5763 / 5763 4911 / 4911 962 / 962 Output Total 525 / 525 1220 / 1220 220 / 220 Balance 5238 / 5238 3691 / 3691 742 / 742 Microbiology Past 72 Hours 04/19/17 11:00 Stool C. difficile DNA Amplification - Final Laboratory Results 04/20/17 04:45: Diff Path Review Reviewed 04/20/17 07:35: Blood Type A NEGATIVE 04/20/17 17:10: Miscellaneous Test Pending 04/20/17 18:25: POC Glucose 305 H 04/20/17 20:07: POC Glucose 271 H 04/20/17 23:38: POC Glucose 244 H 04/21/17 04:35: PT 20.6 H, INR 1.8, APTT 42.7 H, Fibrinogen 420 04/21/17 04:35: Sodium 149 H, Potassium 4.0, Chloride 121 H, Carbon Dioxide 21.0, Anion Gap 7, BUN 41 H, Creatinine 0.81, Estim Creat Clear Calc 104.58, Est GFR (MDRD) Af Amer 126, Est GFR (MDRD) Non-Af 104, BUN/Creatinine Ratio 50.9 H, Glucose 243 H, Calcium 7.4 L, Phosphorus 1.4 L, Magnesium 2.2 04/21/17 06:18: POC Glucose 177 H Current Medications Acetaminophen (Tylenol) 1,000 mg PO Q6H PRN PRN Reason: FEVER Bimatoprost (Lumigan) 1 drop LEFT EYE HS [facility] Last Admin: 04/20/17 21:41 Dose: 1 drop Bisacodyl (Dulcolax) 5 mg PO DAILY PRN PRN PRN Reason: Constipation Budesonide (Pulmicort Aerosol) 0.5 mg INHALATION Q12H.RT [facility] Last Admin: 04/20/17 22:55 Dose: 0.5 mg Calamine/Phenol (Calmoseptine Ointment) 1 applic TOPICAL BID [facility] PRN Reason: Protocol Last Admin: 04/20/17 22:02 Dose: 1 applicatio Dextrose (D50w Syringe) 0 gm IV X1 PRN; Protocol PRN Reason: Hypoglycemia Docusate Sodium (Colace) 100 mg PO BID PRN PRN PRN Reason: Constipation Glucagon () 1 mg IM .X1 PRN PRN Reason: Hypoglycemia Fluconazole (Diflucan) 200 mg in 100 mls @ 100 mls/hr IV Q24 [facility] Last Admin: 04/20/17 11:27 Dose: 100 mls/hr Meropenem 1 gm/ Sodium (Chloride) 120 mls @ 33 mls/hr IV Q8 [facility] Last Admin: 04/21/17 06:02 Dose: 33 mls/hr Sodium Chloride () 250 mls @ 15 mls/hr IV .[id number] PRN PRN Reason: SALINE FLUSH Sodium Chloride () 250 mls @ 15 mls/hr IV .[id number] PRN PRN Reason: SALINE FLUSH Vancomycin HCl 1,250 mg/ (Sodium Chloride) 275 mls @ 183.333 mls/hr IV Q12H [facility] Last Admin: 04/20/17 23:51 Dose: 183.333 mls/hr Multivitamins 10 ml/ Chromium/Copper/Manganese/Seleni/Zn 1 ml/ Folic Acid 1 mg/Famotidine 40 mg/ Amino Acids/Electrolytes 2,015.2 mls @ 84 mls/hr IV .Q24H [facility] Stop: 04/21/17 15:59 Last Admin: 04/20/17 16:30 Dose: 84 mls/hr Norepinephrine Bitartrate 8 mg (/ Dextrose) 258 mls @ 9.67 mls/hr IV .[id number] [facility] PRN Reason: 5 MCG/MIN Last Admin: 04/20/17 20:31 Dose: 9.67 mls/hr Insulin Aspart (Novolog Flexpen (Bkc)) 0 units SC Q6 [facility] PRN Reason: Protocol Last Admin: 04/21/17 06:21 Dose: 1 u Lidocaine/Diphenhydr/Alum/Mg/Simeth () 10 ml PO Q3H PRN PRN PRN Reason: SORE THROAT Last Admin: 04/19/17 16:50 Dose: 10 ml Magnesium Hydroxide (Milk Of Magnesia) 30 ml PO DAILY PRN PRN PRN Reason: Constipation Octreotide Acetate (Sandostatin) 0.1 mg SC TID [facility] Last Admin: 04/21/17 06:02 Dose: 0.1 mg Ondansetron HCl (Zofran Odt) 4 mg PO Q8H PRN PRN PRN Reason: NAUSEA Pharmacy Profile Note () 1 each NOTE NOW ROCK Psyllium Hydrophilic Mucilloid (Metamucil) 1 packet PO DAILY PRN PRN PRN Reason: CONSTIPATION Sodium Chloride () 5 - 30 ml IV UD PRN PRN Reason: SALINE FLUSH Last Admin: 04/19/17 10:32 Dose: 20 ml Assessment/Plan Active and Suspected Problems Neutropenia (Acute) Sepsis (Acute) Thrush of mouth and esophagus (Acute) Thrombocytopenia (Acute) AURELIA (acute kidney injury) (Acute) Dehydration and diarrhea secondary to chemotherapy The patient is a 61 y/o M w/ PMHx: Pancreatitic Cancer, Rectal Cancer following w/ Dr. Rosales with initial recent chemotherapy start 04/10/17 with following development severe thrush who presents to the [facility] ED on 04/18/17 w/ history of worsened oral discomfort, poor intake secondary to pain associated, onset diarrhea. (1) Severe Sepsis secondary to Neutropenic fever, Unclear Specific Etiology w/ Thrombocytopenia, Leukopenia w/ Pancreatic CA and Rectal CA w/ Diarrhea, Poor Oral Intake, Mucosal Fluid Losses, Severe Mucositis: Admission CBC w/ WBC 1.7, Hgb 17.1, Plts 53 with ANC 1.1-->04/19/17 CBC w/ WBC 0.3, Hgb 14.9, Plts 34 with ANC 0-->04/20/17 CBC w/ WBC 0.4, Hgb 16.6, Plt 24 with ANC 0, initial BMP w/ BUN/Cr 87/1.71-->04/20/17 BUN/Cr 44/0.89, CXR w/ no acute process, UA unremarkable. Bld cx and UCx pending. Oncology aware, following. Initially admitted to [place], 04/19/17 worsened status with hypotension despite aggressive hydration (6L) and onset fevers thus transitioned to the ICU, maintained on Neutropenic precautions, mag and phos levels obtained and supplemented as needed, maintain I&Os, treat with IV meropenem, vanc and IV diflucan pending cultures. PRN tylenol, anti-emetics, pain regimen. ID consulted and following. ICU physician consulted and following. Admit LA 1.5, repeat 1.1. ECHO obtained w/ 60%, technically difficult study with inability to estimate RVSP. C-diff assay obtained, negative, enteric pathogen stool requested, pending. Likely diarrhea secondary to recent chemotherapy. Will maintain on sandostatin IM as no IV option. Trending coags per Dr. Cheek recommendation. Per Dr. Cheek recommendations transfuse Plts <30,000 given mucositis and oral bleeding. 04/20/17 Plt pack x 1 administered. 04/19/17-04/20/17 MAP decreased, <65, given MAP low-60s, and ongoing mucosal fluid loss, initiated D5W bolus, continued to trend MAP/BP w/ 04/20/17 evening pressors low dose NEP started. 04/20/17 TPN ordered to start. 04/21/17 AM PICC Lined accidentally pulled out, will discuss with ICU staff regarding re-insertion versus alternate access. 04/21/17 CBC pending. (2) Acute kidney injury: Secondary to poor oral intake, #1 as noted. Admission BUN/Cr 87/1.71, aggressively hydrated, repeat BUN/Cr 55/0.93-->04/20/17 BUN/Cr 44/0.89, hydration held per ICU given 6L since admission. 04/19/17-04/20/17 MAP decreased, <65, additional D5W ordered, pressors 04/20/17 evening low dose started. BUN/Cr 41/0.81. (3) Thrush, Severe Mucositis: Given inability to take oral, d/c oral nystatin S/S, maintain on IV diflucan, BMX liquid. Nutrition consulted, likely will need TPN, will discuss today with ICU. Patient interested in palliative evaluation to assist with pain, pending. Unable to given IV narcotic secondary to BPs. (4) Encephalopathy: Multifactorial, secondary to #1, #2, #3, continue treatment as noted. (5) Hyperglycemia: Admission glucose 187, remained elevated, HgbA1c 6.4%, started on q 6 hour accu checks w/ TPN start. (6) Hypernatremia: Iatrogenic, admission Na 138, aggressive hydration as noted secondary to hypotension, 04/19/17 repeat Na 146-->04/20/17 Na 150. Started as noted D5W as IVFs required secondary to MAP/BP, ongoing mucosal fluid losses. 04/21/17 Na 149. (7) GERD: Famotidine IV. (8) DVT prophylaxis: SCDs, defer chemoprophylaxis with thrombocytopenia. (9) Severe Protein-Calorie Malnutrition: Evidenced per habitus, weight loss, muscle and fat loss, nutrition consulted, TPN to be started today, pharmacy consulted to arrange. (10) CODE status: FULL CODE. Code Visit Inpatient E&M: 77308 Subs Hosp L3
--- NOTE | 2017-04-21 07:22 | PN_ITS ---
Patient Problems: Active and Suspected Problems Neutropenia (Acute) Sepsis (Acute) Thrush of mouth and esophagus (Acute) Thrombocytopenia (Acute) AURELIA (acute kidney injury) (Acute) Dehydration and diarrhea secondary to chemotherapy Subjective: Patient overnight stable however blood pressures did decrease with map less than 65 therefore low-dose NEP initiated following attempt D5W 1L bolus x 2, improved. Patient 04/21/17 AM with accidental PICC Line d/c. Patient notes mouth less painful and able to open a bit more but still severely limited and uncomfortable. Notes being very weak with attempts from bedside commode to bed. Patient denies fevers, chills, nausea, emesis, abdominal pain, chest pain or dyspnea. Objective: Physical Examination: General: awake, alert, oriented x 3 and cooperative, transitioning from bedside commode to bed, very weak, notes mouth does feel improved, still painful. Skin: normal color, turgor, no icterus, cyanosis. HEENT: AT/NC, EOMI, PERRLA, improved oral appearance, still severely dry, crusted lesions inside the mouth, able to open his mouth a bit more, thrush still present. Lungs: Diminished BS BL, > bases, poor effort, no rales, ronchi or wheezing. Heart: Tachycardic with regular rhythm; no gallop, rub audible, port in place. Abdomen: soft, thin habitus, NTTP, ND, hypoactive BS. Extremities: no cyanosis, clubbing, or edema. Neurological: patient awake, alert, oriented x 3; cognitive function intact; pupils equally reactive to light and accomodation; cranial nerves II-XII grossly normal, moving all 4 extremities, no focal deficits, strength severely globally decreased secondary to acute presentation. Psychiatric: affect appears improved, no acute evidence of depressive or anxiety feelings. Vitals/I&O's: Vital Signs Temp Pulse Resp BP Pulse Ox 98.2 F 115 H 16 94/73 99 04/21/17 06:07 04/21/17 06:07 04/21/17 06:07 04/21/17 06:07 04/21/17 06:07 Oxygen Delivery Method Room Air Weight: 179 lb 0.246 oz Body Mass Index (BMI) 23.7 Intake and Output for Last 24 Hours 04/19/17 04/20/17 04/21/17 23:59 23:59 23:59 Intake Total 5763 / 5763 4911 / 4911 962 / 962 Output Total 525 / 525 1220 / 1220 220 / 220 Balance 5238 / 5238 3691 / 3691 742 / 742 Microbiology Past 72 Hours 04/19/17 11:00 Stool C. difficile DNA Amplification - Final Laboratory Results 04/20/17 04:45: Diff Path Review Reviewed 04/20/17 07:35: Blood Type A NEGATIVE 04/20/17 17:10: Miscellaneous Test Pending 04/20/17 18:25: POC Glucose 305 H 04/20/17 20:07: POC Glucose 271 H 04/20/17 23:38: POC Glucose 244 H 04/21/17 04:35: PT 20.6 H, INR 1.8, APTT 42.7 H, Fibrinogen 420 04/21/17 04:35: Sodium 149 H, Potassium 4.0, Chloride 121 H, Carbon Dioxide 21.0 , Anion Gap 7, BUN 41 H, Creatinine 0.81, Estim Creat Clear Calc 104.58, Est GFR (MDRD) Af Amer 126, Est GFR (MDRD) Non-Af 104, BUN/Creatinine Ratio 50.9 H, Glucose 243 H, Calcium 7.4 L, Phosphorus 1.4 L, Magnesium 2.2 04/21/17 06:18: POC Glucose 177 H Current Medications Acetaminophen (Tylenol) 1,000 mg PO Q6H PRN PRN Reason: FEVER Bimatoprost (Lumigan) 1 drop LEFT EYE HS [facility] Last Admin: 04/20/17 21:41 Dose: 1 drop Bisacodyl (Dulcolax) 5 mg PO DAILY PRN PRN PRN Reason: Constipation Budesonide (Pulmicort Aerosol) 0.5 mg INHALATION Q12H.RT [facility] Last Admin: 04/20/17 22:55 Dose: 0.5 mg Calamine/Phenol (Calmoseptine Ointment) 1 applic TOPICAL BID [facility] PRN Reason: Protocol Last Admin: 04/20/17 22:02 Dose: 1 applicatio Dextrose (D50w Syringe) 0 gm IV X1 PRN; Protocol PRN Reason: Hypoglycemia Docusate Sodium (Colace) 100 mg PO BID PRN PRN PRN Reason: Constipation Glucagon () 1 mg IM .X1 PRN PRN Reason: Hypoglycemia Fluconazole (Diflucan) 200 mg in 100 mls @ 100 mls/hr IV Q24 [facility] Last Admin: 04/20/17 11:27 Dose: 100 mls/hr Meropenem 1 gm/ Sodium (Chloride) 120 mls @ 33 mls/hr IV Q8 [facility] Last Admin: 04/21/17 06:02 Dose: 33 mls/hr Sodium Chloride () 250 mls @ 15 mls/hr IV .[id number] PRN PRN Reason: SALINE FLUSH Sodium Chloride () 250 mls @ 15 mls/hr IV .[id number] PRN PRN Reason: SALINE FLUSH Vancomycin HCl 1,250 mg/ (Sodium Chloride) 275 mls @ 183.333 mls/hr IV Q12H [facility] Last Admin: 04/20/17 23:51 Dose: 183.333 mls/hr Multivitamins 10 ml/ Chromium/Copper/Manganese/Seleni/Zn 1 ml/ Folic Acid 1 mg/ Famotidine 40 mg/ Amino Acids/Electrolytes 2,015.2 mls @ 84 mls/hr IV .Q24H [facility] Stop: 04/21/17 15:59 Last Admin: 04/20/17 16:30 Dose: 84 mls/hr Norepinephrine Bitartrate 8 mg (/ Dextrose) 258 mls @ 9.67 mls/hr IV .[id number] [facility] PRN Reason: 5 MCG/MIN Last Admin: 04/20/17 20:31 Dose: 9.67 mls/hr Insulin Aspart (Novolog Flexpen (Bkc)) 0 units SC Q6 [facility] PRN Reason: Protocol Last Admin: 04/21/17 06:21 Dose: 1 u Lidocaine/Diphenhydr/Alum/Mg/Simeth () 10 ml PO Q3H PRN PRN PRN Reason: SORE THROAT Last Admin: 04/19/17 16:50 Dose: 10 ml Magnesium Hydroxide (Milk Of Magnesia) 30 ml PO DAILY PRN PRN PRN Reason: Constipation Octreotide Acetate (Sandostatin) 0.1 mg SC TID [facility] Last Admin: 04/21/17 06:02 Dose: 0.1 mg Ondansetron HCl (Zofran Odt) 4 mg PO Q8H PRN PRN PRN Reason: NAUSEA Pharmacy Profile Note () 1 each NOTE NOW [facility] Psyllium Hydrophilic Mucilloid (Metamucil) 1 packet PO DAILY PRN PRN PRN Reason: CONSTIPATION Sodium Chloride () 5 - 30 ml IV UD PRN PRN Reason: SALINE FLUSH Last Admin: 04/19/17 10:32 Dose: 20 ml Assessment/Plan Active and Suspected Problems Neutropenia (Acute) Sepsis (Acute) Thrush of mouth and esophagus (Acute) Thrombocytopenia (Acute) AURELIA (acute kidney injury) (Acute) Dehydration and diarrhea secondary to chemotherapy The patient is a 61 y/o M w/ PMHx: Pancreatitic Cancer, Rectal Cancer following w/ Dr. Rosales with initial recent chemotherapy start 04/10/17 with following development severe thrush who presents to the [facility] ED on 04/18/17 w/ history of worsened oral discomfort, poor intake secondary to pain associated, onset diarrhea. (1) Severe Sepsis secondary to Neutropenic fever, Unclear Specific Etiology w/ Thrombocytopenia, Leukopenia w/ Pancreatic CA and Rectal CA w/ Diarrhea, Poor Oral Intake, Mucosal Fluid Losses, Severe Mucositis: Admission CBC w/ WBC 1.7, Hgb 17.1, Plts 53 with ANC 1.1-->04/19/17 CBC w/ WBC 0.3, Hgb 14.9, Plts 34 with ANC 0-->04/20/17 CBC w/ WBC 0.4, Hgb 16.6, Plt 24 with ANC 0, initial BMP w/ BUN/ Cr 87/1.71-->04/20/17 BUN/Cr 44/0.89, CXR w/ no acute process, UA unremarkable. Bld cx and UCx pending. Oncology aware, following. Initially admitted to ID, worsened status with hypotension despite aggressive hydration (6L) and onset fevers thus transitioned to the ICU, maintained on Neutropenic precautions , mag and phos levels obtained and supplemented as needed, maintain I&Os, treat with IV meropenem, vanc and IV diflucan pending cultures. PRN tylenol, anti- emetics, pain regimen. ID consulted and following. ICU physician consulted and following. Admit LA 1.5, repeat 1.1. ECHO obtained w/ 60%, technically difficult study with inability to estimate RVSP. C-diff assay obtained, negative , enteric pathogen stool requested, pending. Likely diarrhea secondary to recent chemotherapy. Will maintain on sandostatin IM as no IV option. Trending coags per Dr. Cheek recommendation. Per Dr. Cheek recommendations transfuse Plts <30 ,000 given mucositis and oral bleeding. 04/20/17 Plt pack x 1 administered. -04/20/17 MAP decreased, <65, given MAP low-60s, and ongoing mucosal fluid loss , initiated D5W bolus, continued to trend MAP/BP w/ 04/20/17 evening pressors low dose NEP started. 04/20/17 TPN ordered to start. 04/21/17 AM PICC Lined accidentally pulled out, will discuss with ICU staff regarding re-insertion versus alternate access. 04/21/17 CBC pending. (2) Acute kidney injury: Secondary to poor oral intake, #1 as noted. Admission BUN/Cr 87/1.71, aggressively hydrated, repeat BUN/Cr 55/0.93-->04/20/17 BUN/Cr 44/ 0.89, hydration held per ICU given 6L since admission. 04/19/17-04/20/17 MAP decreased, <65, additional D5W ordered, pressors 04/20/17 evening low dose started. BUN/Cr 41/0.81. (3) Thrush, Severe Mucositis: Given inability to take oral, d/c oral nystatin S/ S, maintain on IV diflucan, BMX liquid. Nutrition consulted, likely will need TPN, will discuss today with ICU. Patient interested in palliative evaluation to assist with pain, pending. Unable to given IV narcotic secondary to BPs. (4) Encephalopathy: Multifactorial, secondary to #1, #2, #3, continue treatment as noted. (5) Hyperglycemia: Admission glucose 187, remained elevated, HgbA1c 6.4%, started on q 6 hour accu checks w/ TPN start. (6) Hypernatremia: Iatrogenic, admission Na 138, aggressive hydration as noted secondary to hypotension, 04/19/17 repeat Na 146-->04/20/17 Na 150. Started as noted D5W as IVFs required secondary to MAP/BP, ongoing mucosal fluid losses. 04/21/17 Na 149. (7) GERD: Famotidine IV. (8) DVT prophylaxis: SCDs, defer chemoprophylaxis with thrombocytopenia. (9) Severe Protein-Calorie Malnutrition: Evidenced per habitus, weight loss, muscle and fat loss, nutrition consulted, TPN to be started today, pharmacy consulted to arrange. (10) CODE status: FULL CODE. Code Visit Inpatient E&M: 90897 Subs Hosp L3
[2017-04-21 07:53] LABS: RBC Distribution Width CV 14.9 % (11.6-14.6)
[2017-04-21] MEDS: Menthol/Lanolin/Calamine/Znox 113 GM Tube 1 APPLIC TOPICAL ×2 (08:09→22:07)
[2017-04-21] MEDS: 0.9% NaCl Peripheral Flush Adult/Peds IV ×4 (08:16→22:08)
[2017-04-21] MEDS: CHLORHEXIDINE GLUC 2% CLOTH 1 EACH TOWELETTE TOPICAL (08:16)
[2017-04-21] MEDS: 0.9% NaCl IVPB Med Flush (250 mL) 15 ML IV (08:16)
[2017-04-21 08:17] LABS: Hematocrit 50.6 % (40-54); Mean Corp Hgb Conc 33.6 g/gl (32-36); Mean Corpuscular Hgb 31.4 pg (27.0-32.0); Mean Corpuscular Volume 93.5 fL (80-94); Red Blood Count 5.41 M/mm3 (4.6-6.2); White Blood Count 0.8 K/mm3 (4.4-11.0)
[2017-04-21 08:18] LABS: Differential Indicated SCAN CRITERIA MET; Lymphocyte % 96.1 % (19-41); Mean Platelet Vol. 10.5 fl (6.2-12.0); Monocyte% 1.3 % (0-10); Neutrophil % 2.6 % (47-70); POSITIVE COUNT YES; POSITIVE DIFFERENTIAL YES; POSITIVE MORPHOLOGY YES; Platelet Count 35 K/mm3 (150-450)
[2017-04-21 08:19] LABS: Absolute Lymphocyte Count 0.73 X10^3/ul (0.83-4.51); Lymphocyte # 0.73 X10^3/ul (4.0); Neutrophil # 0.02 X10^3/uL (2.7-7.7)
--- NOTE | 2017-04-21 08:29 | PN_ITS ---
Patient Problems: Active and Suspected Problems Neutropenia (Acute) Sepsis (Acute) Thrush of mouth and esophagus (Acute) Thrombocytopenia (Acute) AURELIA (acute kidney injury) (Acute) Dehydration and diarrhea secondary to chemotherapy Subjective: Severe mucositis and diarrhea 2/2 chemotherapy (possible DPD deficiency- decrease 5FU clearance) Hypernatremia secondary to fluid imbalance No fever overnight, but currently on Levophed because of hypotension 2/2 sepsis Coagulopathy- possible vitamin K deficiency along with sepsis. Severe neutropenia and thrombocytopenia secondary to chemotherapy & sepsis He denies abdominal pain, shortness of breath. + Nausea with severe watery diarrhea. - Physical Exam General: Alert, Cooperative Oral: Ulcerations Present - Mucous membranes dry with grade 3 mucositis, no visible mucosal bleeding Neck: Supple, No JVD Lungs: Clear to auscultation Cardiovascular: Tachycardic Abdomen: Bowel Sounds Present, Soft, Non Tender, Hypoactive Bowel Sounds Extremities: No clubbing, No cyanosis, No edema Skin: No rashes Lymphatic: No Cervical, Supraclavicular, or Inguinal Adenopathy Neurological: Neuro grossly intact Psych/Mental Status: Appropriate Vital Signs Temp Pulse Resp BP Pulse Ox 98.2 F 115 H 16 94/73 99 04/21/17 06:07 04/21/17 06:07 04/21/17 06:07 04/21/17 06:07 04/21/17 06:07 Oxygen Delivery Method Room Air Weight: 179 lb 0.246 oz Body Mass Index (BMI) 23.7 Intake and Output for Last 24 Hours 04/19/17 04/20/17 04/21/17 23:59 23:59 23:59 Intake Total 5763 / 5763 4911 / 4911 962 / 962 Output Total 525 / 525 1220 / 1220 220 / 220 Balance 5238 / 5238 3691 / 3691 742 / 742 Microbiology Past 72 Hours 04/19/17 09:15 Urine Culture - Final Urine, Random Culture exhibits no growth. 04/19/17 11:00 C. difficile DNA Amplification - Final Stool Laboratory Tests Past 24 Hrs 04/20/17 04/20/17 04/20/17 04:45 07:35 17:10 WBC RBC Hgb Hct MCV MCH MCHC RDW RDW Differential Plt Count Neut % (Auto) Absolute Neuts (auto) Total Counted Diff Path Review Reviewed PT INR APTT Fibrinogen Sodium Potassium Chloride Carbon Dioxide Anion Gap BUN Creatinine Estim Creat Clear Calc Est GFR (MDRD) Af Amer Est GFR (MDRD) Non-Af BUN/Creatinine Ratio Glucose Calcium Phosphorus Magnesium Miscellaneous Test Pending Blood Type A NEGATIVE 04/21/17 04/21/17 04/21/17 04:35 04:35 07:30 WBC Pending RBC Pending Hgb Pending Hct Pending MCV Pending MCH Pending MCHC Pending RDW Pending RDW Differential Pending Plt Count Pending Neut % (Auto) Pending Absolute Neuts (auto) Pending Total Counted Pending Diff Path Review PT 20.6 H INR 1.8 APTT 42.7 H Fibrinogen 420 Sodium 149 H Potassium 4.0 Chloride 121 H Carbon Dioxide 21.0 Anion Gap 7 BUN 41 H Creatinine 0.81 Estim Creat Clear Calc 104.58 Est GFR (MDRD) Af Amer 126 Est GFR (MDRD) Non-Af 104 BUN/Creatinine Ratio 50.9 H Glucose 243 H Calcium 7.4 L Phosphorus 1.4 L Magnesium 2.2 Miscellaneous Test Blood Type POC Glucose 04/21/17 04/20/17 04/20/17 06:18 23:38 20:07 POC Glucose 177 H 244 H 271 H 04/20/17 18:25 POC Glucose 305 H Assessment/Plan Active and Suspected Problems Neutropenia (Acute) Sepsis (Acute) Thrush of mouth and esophagus (Acute) Thrombocytopenia (Acute) AURELIA (acute kidney injury) (Acute) Dehydration and diarrhea secondary to chemotherapy ASSESSMENT/PLAN: 1. Neutropenic sepsis - Plan: ID consult. -Continue broad-spectrum antibiotics with meropenem and vancomycin and Diflucan 2. AURELIA -with hypernatremia on IV fluids. dehydrated and diarrhea; possible ATN from chemotherapy Plan: -Continue IV fluid and maintained blood pressure and avoid hypotension -Correct hypernatremia; increased free fluid 3. Neutropenia - 2/2 chemo. Abs neutos 0.0; patient has not rakesh or another 2- 3 more days Possible 7 -10 more days if he has dihydropyridine dehydrogenase deficiency; decreased clearance of 5-fluorouracil Plan: - Had Neulasta injection on 04/14/17. - Continue supportive care and broad-spectrum antibiotics - Order pharmacogenetics study for dihydropyridine dehydrogenase deficiency yesterday. 4. Thrombocytopenia 2/2 chemo. Plan: avoid heparin products & aspirin - Transfuse platelets <20,000 because of mucositis and bleeding - Vitamin K IV today - Repeat coags; PT/PTT & fibrinogen 5) severe mucositis and diarrhea secondary to chemotherapy Plan: - Keep nothing by mouth - Consider TPN - Tylenol 3 or morphine as needed for pain if blood pressures adequate; BMX suspension as needed for mucositis - Sandostatin 100mcg sq every 8 hours for diarrhea - Add budesonide for mucositis. Prognosis guarded because of severe toxicity from chemotherapy along with sepsis and coagulopathy. cc: Dr. Dc Rosales, Dr. Mukesh Lee, Dr. Sameer Bowling; Dr. Eliza Persaud Original Note: Patient Problems: Active and Suspected Problems Neutropenia (Acute) Sepsis (Acute) Thrush of mouth and esophagus (Acute) Thrombocytopenia (Acute) AURELIA (acute kidney injury) (Acute) Dehydration and diarrhea secondary to chemotherapy
--- NOTE | 2017-04-21 09:25 | RAD_ITS ---
STUDY: X-RAY CHEST REASON FOR EXAM: Male, 61 years old. PICC line placement. TECHNIQUE: Single AP portable view of the chest. COMPARISON: Comparison is made with prior study dated April 20, 2017. FINDINGS: A right-sided PICC line catheter has been placed. The tip is at the junction of the superior vena cava and right atrium. A left-sided portacatheter is seen. The tip is in the midportion of the superior vena cava. The lungs are clear and expanded. There is no demonstrated pleural abnormality. Normal size heart. Normal mediastinum and gama. Normal visualized pulmonary arteries. Normal visualized aortic arch and descending thoracic aorta. There are diffuse degenerative changes of the visualized thoracic spine. Normal visualized ribs, clavicles, and shoulders. There is no demonstrated abnormality of the visualized soft tissue structures of the upper abdomen. RAD/CXR for Line Placement IMPRESSION: The tip of the right PICC line catheter is at the junction of the superior vena cava and right atrium. Electronically Signed: Kris Britt MD at 10:15 EST Tel [phone], Service support ,
[2017-04-21] MEDS: Budesonide Respules 0.5 MG/2 ML AMPUL.NEB. INHALATION ×2 (11:03→22:25)
--- NOTE | 2017-04-21 11:17 | PCM.PN.ID ---
Patient Problems: Active and Suspected Problems Neutropenia (Acute) Sepsis (Acute) Thrush of mouth and esophagus (Acute) Thrombocytopenia (Acute) AURELIA (acute kidney injury) (Acute) Dehydration and diarrhea secondary to chemotherapy Subjective: Now on pressors, pulled picc last night. No fever. - Physical Exam General: Lethargic Oral: Ulcerations Present, - - mucositis Lungs: Clear to auscultation, Normal air movement Cardiovascular: Tachycardic Abdomen: Soft, Non Tender, Non-Distended Skin: No rashes Vital Signs Temp Pulse Resp BP Pulse Ox 97.6 F L 116 H 20 H 99/67 97 04/21/17 10:00 04/21/17 11:05 04/21/17 11:05 04/21/17 11:00 04/21/17 11:05 Oxygen Delivery Method Room Air Weight: 81.2 kg Body Mass Index (BMI) 23.7 Intake and Output for Last 24 Hours 04/19/17 04/20/17 04/21/17 23:59 23:59 23:59 Intake Total 5763 / 5763 4911 / 4911 962 / 962 Output Total 525 / 525 1220 / 1220 220 / 220 Balance 5238 / 5238 3691 / 3691 742 / 742 Microbiology Past 72 Hours 04/19/17 11:00 Enteric Bacteriology - Final Stool 04/19/17 09:15 Urine Culture - Final Urine, Random Culture exhibits no growth. 04/19/17 11:00 C. difficile DNA Amplification - Final Stool Laboratory Tests Past 24 Hrs 04/20/17 04/20/17 04/20/17 04:45 07:35 17:10 WBC RBC Hgb Hct MCV MCH MCHC RDW RDW Differential Plt Count MPV Immature Gran % (Auto) Neut % (Auto) Lymph % (Auto) [place] % (Auto) Eos % (Auto) Baso % (Auto) Absolute Neuts (auto) Absolute Lymphs (auto) Total Counted Differential Comment Diff Path Review Reviewed PT INR APTT Fibrinogen Sodium Potassium Chloride Carbon Dioxide Anion Gap BUN Creatinine Estim Creat Clear Calc Est GFR (MDRD) Af Amer Est GFR (MDRD) Non-Af BUN/Creatinine Ratio Glucose Calcium Phosphorus Magnesium Miscellaneous Test Pending Blood Type A NEGATIVE 04/21/17 04/21/17 04/21/17 04:35 04:35 07:30 WBC 0.8 L* RBC 5.41 Hgb 17.0 H Hct 50.6 MCV 93.5 MCH 31.4 MCHC 33.6 RDW 14.9 H RDW Differential 51.0 H Plt Count 35 L* MPV 10.5 Immature Gran % (Auto) 0.000 Neut % (Auto) 2.6 L Lymph % (Auto) 96.1 H [place] % (Auto) 1.3 Eos % (Auto) 0.0 Baso % (Auto) 0.0 Absolute Neuts (auto) 0.0 L Absolute Lymphs (auto) 0.73 L Total Counted Not Reportable Differential Comment Diff Path Review June foll PT 20.6 H INR 1.8 APTT 42.7 H Fibrinogen 420 Sodium 149 H Potassium 4.0 Chloride 121 H Carbon Dioxide 21.0 Anion Gap 7 BUN 41 H Creatinine 0.81 Estim Creat Clear Calc 104.58 Est GFR (MDRD) Af Amer 126 Est GFR (MDRD) Non-Af 104 BUN/Creatinine Ratio 50.9 H Glucose 243 H Calcium 7.4 L Phosphorus 1.4 L Magnesium 2.2 Miscellaneous Test Blood Type POC Glucose 04/21/17 04/20/17 04/20/17 06:18 23:38 20:07 POC Glucose 177 H 244 H 271 H 04/20/17 18:25 POC Glucose 305 H Route of nutrition/ use of supplements: [] Nutritional Intake: [] IV Site: [] Morgan Catheter: [] - Assessment/Plan Antibiotics: [] Assessment/Plan: [] Active and Suspected Problems Sepsis (Acute) Thrush of mouth and esophagus (Acute) AURELIA (acute kidney injury) (Acute) Neutropenic fever with thrush and recent chemo. Continue vanc/edwige/fluconazole. Cdiff was neg. Now with septic shock. Cxs remain negative. No further fever. will follow
[2017-04-21 12:05] LABS: Bedside Glucose 356 mg/dL (70-110)
[2017-04-21] MEDS: Fat Emulsions 20% 500 ML IV (16:18)
--- NOTE | 2017-04-21 16:19 | PCM.RX.CS ---
Subjective/Objective Date: 04/21/17 Time: 16:19 Antibiotic: Vancomycin Type of Consult: Follow-up Current Antibiotic Regimen: Medications Vancomycin HCl 1,250 mg/ (Sodium Chloride) 275 mls @ 183.333 mls/hr IV Q12H [facility] Last Admin: 04/21/17 11:58 Dose: 183.333 mls/hr Indications for Therapy: Empiric Labs: Sodium 149 mmol/L (136-145) H 04/21/17 04:35 Potassium 4.0 mmol/L (3.5-5.1) 04/21/17 04:35 Chloride 121 mmol/L (98-107) H 04/21/17 04:35 Carbon Dioxide 21.0 mmol/L (21.0-32.0) 04/21/17 04:35 Anion Gap 7 (5-15) 04/21/17 04:35 BUN 41 mg/dL (7-18) H 04/21/17 04:35 Creatinine 0.81 mg/dL (0.70-1.30) 04/21/17 04:35 Est GFR (MDRD) Af Amer 126 mL/min (>60) 04/21/17 04:35 Est GFR (MDRD) Non-Af 104 mL/min (>60) 04/21/17 04:35 BUN/Creatinine Ratio 50.9 RATIO (10-20) H 04/21/17 04:35 Glucose 243 mg/dL (74-106) H 04/21/17 04:35 Vancomycin Trough 12.0 ug/mL (5.0-15.0) 04/21/17 11:50 Estimated Creatinine Clearance: 90-100 mL/min Pharmacy Plan for Drug Dosing: Vancomycin trough within goal range 10-15 mcg/mL. Recommend to continue current regimen and check trough Monday if still active. Pharmacy Service will continue to monitor and adjust dosing as required. Pharmacy to order these labs: Trough - Vancomycin Labs to be done on (date): 04/24/17 Labs to be done (time): 12:00
[2017-04-21 17:21] LABS: Bedside Glucose 391 mg/dL (70-110)
[2017-04-22] VITALS (14 sets, daily range): BP systolic 66–162; BP diastolic 44–152; PULSE 122–137; RESP 14–29; TEMP 36.9–37.4; O2SAT 95–100
[2017-04-22 04:30] LABS: Fibrinogen 315 mg/dl (203-444); International Normalized Ratio 1.7; Partial Thromboplast Time 32.6 Seconds (24.1-36.2); Prothrombin Time (Protime)PT. 19.6 SECONDS (11.7-14.9)
[2017-04-22 04:35] LABS: Absolute Lymphocyte Count 0.47 X10^3/ul (0.83-4.51); Hematocrit 48.3 % (40-54); Hemoglobin 16.2 g/dl (13.0-16.5); Lymphocyte # 0.47 X10^3/ul (4.0); Lymphocyte % 97.9 % (19-41); Mean Corp Hgb Conc 33.5 g/gl (32-36); Mean Corpuscular Hgb 31.7 pg (27.0-32.0); Mean Corpuscular Volume 94.5 fL (80-94); Mean Platelet Vol. 10.5 fl (6.2-12.0); Neutrophil # 0.01 X10^3/uL (2.7-7.7); Neutrophil % 2.1 % (47-70); RBC Distribution Width CV 15.3 % (11.6-14.6); RBC Distribution Width SD 53.4 fl (35.1-43.9); Red Blood Count 5.11 M/mm3 (4.6-6.2)
[2017-04-22 04:38] LABS: Differential Indicated SCAN CRITERIA MET; POSITIVE COUNT YES; POSITIVE DIFFERENTIAL YES; POSITIVE MORPHOLOGY YES; Platelet Count 22 K/mm3 (150-450); White Blood Count 0.5 K/mm3 (4.4-11.0)
[2017-04-22 04:48] LABS: Anion Gap 6 (5-15); BUN 36 mg/dL (7-18); BUN/Creat Ratio 37.3 RATIO (10-20); Calcium,Total 6.8 mg/dL (8.5-10.1); Chloride 115 mmol/L (98-107); Creatinine, Serum 0.96 mg/dL (0.70-1.30); EST Glomerular Filtration Rate 85 mL/min (>60); Est Glom Filt Rate - Afr Amer 102 mL/min (>60); Estimated Creatinine Clearance 88.24 ml/min; Glucose 517 mg/dL (74-106); Potassium 4.4 mmol/L (3.5-5.1); Sodium Level 141 mmol/L (136-145)
[2017-04-22 04:58] LABS: Differential Comment SCAN; Platelet Estimate MKD DEC (ADEQ)
--- NOTE | 2017-04-22 05:03 | PCM.PN.INT ---
Subjective: The patient was seen and examined at the bedside this morning. Events from the last 24 hours have been reviewed. The patient currently has a low-grade fever with a T-max of 99.2?F. The patient's low-dose Levophed was discontinued yesterday afternoon. The patient is now greater than 14 L positive for the admission. Nevertheless, he continues to maintain appropriate oxygen saturations on room air. The patient was awoken from sleep this morning. He is far more lethargic than previous. Blood pressures are tenuous at best. The patient will arouse to verbal stimulation but then falls quickly back to sleep. His is present at the bedside. The patient's PICC line was replaced yesterday and TPN was subsequently resumed. Platelet count is down to 22,000 this morning. Blood sugars are elevated to greater than 500. UPDATE, 814: I was notified by nursing staff that the patient's blood pressures continue to fall. However, neither the patient nor his wish to have Levophed restarted. Although the patient is not able to participate fully due to lethargy, his did report that they had a serious discussion regarding future treatment goals and he is accepting of his prognosis. They are wishing at this time to proceed with a transition to comfort care measures, including referral to hospice. DNR CC status will be updated. Hospice will be made aware. Objective: The patient's most recent lab work, culture data and imaging studies have all been personally reviewed. Blood and urine cultures have been unrevealing today. C. difficile, enteric bacteriology along with O&P have all been negative. Surface echocardiogram revealed normal LV size and thickness with an ejection fraction of 60%. General: No apparent distress, Lethargic HEENT: Atraumatic, Normocephalic Oral: - - Severe mucositis remains unchanged with dry oropharyngeal membranes. Difficulty with phonation Neck: Supple, No Nodes, Trachea Midline Lungs: No rhonchi, No wheeze, No rales, Diminished Cardiovascular: Normal S1, Normal S2, No murmurs, No rub noted, No Gallop, Tachycardic, - - Stable appearing chest port Abdomen: Soft, Non Tender, Hypoactive Bowel Sounds Extremities: No clubbing, No cyanosis, No edema Skin: - - No significant change from previous Musculoskeletal: No Tenderness to Palpation of Joints or Extremities Lymphatic: No Cervical, Supraclavicular, or Inguinal Adenopathy Neurological: Neuro grossly intact Psych/Mental Status: - - Somnolent Vital Signs Temp Pulse Resp BP Pulse Ox 99.2 F H 131 H 16 79/68 L 100 04/22/17 00:00 04/22/17 04:00 04/22/17 01:00 04/22/17 01:00 04/22/17 01:00 Oxygen Delivery Method Room Air Weight: 179 lb 0.246 oz Body Mass Index (BMI) 23.7 Intake and Output for Last 24 Hours 04/20/17 04/21/17 04/22/17 23:59 23:59 23:59 Intake Total 4911 / 4911 3847 / 3847 1883 / 1883 Output Total 1220 / 1220 870 / 870 Balance 3691 / 3691 2977 / 2977 1883 / 1883 Labs (Last 48 Hours) 04/20/17 04/20/17 04/20/17 04:45 04:45 04:45 WBC 0.4 L* RBC 5.26 Hgb 16.6 H Hct 49.0 MCV 93.2 MCH 31.6 MCHC 33.9 RDW 14.5 RDW Differential 49.3 H Plt Count 24 L* MPV 10.6 Immature Gran % (Auto) 0.000 Neut % (Auto) 0.0 L Lymph % (Auto) 100.0 H [place] % (Auto) 0.0 Eos % (Auto) 0.0 Baso % (Auto) 0.0 Absolute Neuts (auto) 0.0 L Absolute Lymphs (auto) 0.42 L Total Counted Not Reportable Differential Comment SCAN Diff Path Review Reviewed Platelet Estimate MKD DEC PT 23.3 H INR 2.1 APTT 28.1 Fibrinogen 403 Sodium 150 H Potassium 4.2 Chloride 123 H Carbon Dioxide 21.0 Anion Gap 6 BUN 44 H Creatinine 0.89 Estim Creat Clear Calc 95.18 Est GFR (MDRD) Af Amer 113 Est GFR (MDRD) Non-Af 93 BUN/Creatinine Ratio 49.6 H Glucose 176 H Calcium 7.6 L Phosphorus Magnesium Vancomycin Trough Miscellaneous Test POC Glucose Blood Type 04/20/17 04/20/17 04/20/17 07:35 17:10 18:25 WBC RBC Hgb Hct MCV MCH MCHC RDW RDW Differential Plt Count MPV Immature Gran % (Auto) Neut % (Auto) Lymph % (Auto) [place] % (Auto) Eos % (Auto) Baso % (Auto) Absolute Neuts (auto) Absolute Lymphs (auto) Total Counted Differential Comment Diff Path Review Platelet Estimate PT INR APTT Fibrinogen Sodium Potassium Chloride Carbon Dioxide Anion Gap BUN Creatinine Estim Creat Clear Calc Est GFR (MDRD) Af Amer Est GFR (MDRD) Non-Af BUN/Creatinine Ratio Glucose Calcium Phosphorus Magnesium Vancomycin Trough Miscellaneous Test Pending POC Glucose 305 H Blood Type A NEGATIVE 04/20/17 04/20/17 04/21/17 20:07 23:38 04:35 WBC RBC Hgb Hct MCV MCH MCHC RDW RDW Differential Plt Count MPV Immature Gran % (Auto) Neut % (Auto) Lymph % (Auto) [place] % (Auto) Eos % (Auto) Baso % (Auto) Absolute Neuts (auto) Absolute Lymphs (auto) Total Counted Differential Comment Diff Path Review Platelet Estimate PT 20.6 H INR 1.8 APTT 42.7 H Fibrinogen 420 Sodium Potassium Chloride Carbon Dioxide Anion Gap BUN Creatinine Estim Creat Clear Calc Est GFR (MDRD) Af Amer Est GFR (MDRD) Non-Af BUN/Creatinine Ratio Glucose Calcium Phosphorus Magnesium Vancomycin Trough Miscellaneous Test POC Glucose 271 H 244 H Blood Type 04/21/17 04/21/17 04/21/17 04:35 06:18 07:30 WBC 0.8 L* RBC 5.41 Hgb 17.0 H Hct 50.6 MCV 93.5 MCH 31.4 MCHC 33.6 RDW 14.9 H RDW Differential 51.0 H Plt Count 35 L* MPV 10.5 Immature Gran % (Auto) 0.000 Neut % (Auto) 2.6 L Lymph % (Auto) 96.1 H [place] % (Auto) 1.3 Eos % (Auto) 0.0 Baso % (Auto) 0.0 Absolute Neuts (auto) 0.0 L Absolute Lymphs (auto) 0.73 L Total Counted Not Reportable Differential Comment Diff Path Review May foll Platelet Estimate PT INR APTT Fibrinogen Sodium 149 H Potassium 4.0 Chloride 121 H Carbon Dioxide 21.0 Anion Gap 7 BUN 41 H Creatinine 0.81 Estim Creat Clear Calc 104.58 Est GFR (MDRD) Af Amer 126 Est GFR (MDRD) Non-Af 104 BUN/Creatinine Ratio 50.9 H Glucose 243 H Calcium 7.4 L Phosphorus 1.4 L Magnesium 2.2 Vancomycin Trough Miscellaneous Test POC Glucose 177 H Blood Type 04/21/17 04/21/17 04/21/17 11:50 11:51 17:09 WBC RBC Hgb Hct MCV MCH MCHC RDW RDW Differential Plt Count MPV Immature Gran % (Auto) Neut % (Auto) Lymph % (Auto) [place] % (Auto) Eos % (Auto) Baso % (Auto) Absolute Neuts (auto) Absolute Lymphs (auto) Total Counted Differential Comment Diff Path Review Platelet Estimate PT INR APTT Fibrinogen Sodium Potassium Chloride Carbon Dioxide Anion Gap BUN Creatinine Estim Creat Clear Calc Est GFR (MDRD) Af Amer Est GFR (MDRD) Non-Af BUN/Creatinine Ratio Glucose Calcium Phosphorus Magnesium Vancomycin Trough 12.0 Miscellaneous Test POC Glucose 356 H 391 H Blood Type 04/22/17 04/22/17 04/22/17 04:10 04:10 04:10 WBC 0.5 L* RBC 5.11 Hgb 16.2 Hct 48.3 MCV 94.5 H MCH 31.7 MCHC 33.5 RDW 15.3 H RDW Differential 53.4 H Plt Count 22 L* MPV 10.5 Immature Gran % (Auto) 0.000 Neut % (Auto) 2.1 L Lymph % (Auto) 97.9 H [place] % (Auto) 0.0 Eos % (Auto) 0.0 Baso % (Auto) 0.0 Absolute Neuts (auto) 0.0 L Absolute Lymphs (auto) 0.47 L Total Counted Not Reportable Differential Comment SCAN Diff Path Review May foll Platelet Estimate MKD DEC PT 19.6 H INR 1.7 APTT 32.6 Fibrinogen 315 Sodium 141 Potassium 4.4 Chloride 115 H Carbon Dioxide 20.0 L Anion Gap 6 BUN 36 H Creatinine 0.96 Estim Creat Clear Calc 88.24 Est GFR (MDRD) Af Amer 102 Est GFR (MDRD) Non-Af 85 BUN/Creatinine Ratio 37.3 H Glucose 517 H* Calcium 6.8 L Phosphorus Magnesium Vancomycin Trough Miscellaneous Test POC Glucose Blood Type Microbiology 04/19/17 11:00 Stool Enteric Bacteriology - Final 04/19/17 09:15 Urine, Random Urine Culture - Final Culture exhibits no growth. Clinical Impression(s) from Imaging Studies Chest X-Ray 04/18/17 13:50 IMPRESSION: No acute abnormality is seen. Electronically Signed: Kris Britt MD at 14:13 EST Tel [phone], Service support , Chest X-Ray 04/19/17 10:17 IMPRESSION: No acute abnormality is seen. Electronically Signed: Kris Britt MD at 10:56 EST Tel [phone], Service support , Chest X-Ray 04/20/17 10:31 IMPRESSION: The tip of the right PICC line catheter is in the left brachiocephalic vein as it enters the superior vena cava. Electronically Signed: Kris Britt MD at 11:20 EST Tel [phone], Service support , Chest X-Ray 04/20/17 11:15 IMPRESSION: The tip of the right-sided PICC line catheter is at the junction of the superior vena cava and right atrium. Electronically Signed: Kris Britt MD at 12:13 EST Tel [phone], Service support , Chest X-Ray 04/21/17 09:25 IMPRESSION: The tip of the right PICC line catheter is at the junction of the superior vena cava and right atrium. Electronically Signed: Kris Britt MD at 10:15 EST Tel [phone], Service support , Assessment/Plan Active and Suspected Problems Neutropenia (Acute) Sepsis (Acute) Thrush of mouth and esophagus (Acute) Thrombocytopenia (Acute) AURELIA (acute kidney injury) (Acute) Dehydration and diarrhea secondary to chemotherapy RECOMMENDATIONS: 1. At this time, given the transition to comfort care measures, antibiotics can be discontinued. 2. Continue D5W for supplemental hydration for now. 3. Transfuse platelets if less than 20K 4. Continue TPN 5. Continue high intensity sliding scale coverage and start Levemir today 6. We will place referral to hospice care. Oncology will be updated. IMPRESSIONS: 1. Septic shock/neutropenic fever The patient recently received chemotherapy. He presented with severe mucositis and diarrhea along with dysphasia and odynophagia. The patient was initially maintained on broad-spectrum antibiotics per infectious diseases recommendations. However, given the request to transition to comfort care measures, antibiotic will be discontinued. Continue supplemental IV fluid hydration as ordered. 2. Acute kidney injury, likely prerenal in etiology Improved following IV fluid hydration. Urine output is appropriate. No indication for renal replacement therapy at this time. 3. Thrombocytopenia secondary to chemotherapy/coagulopathy Transfuse if platelet count falls below 20,000. 4. Severe mucositis Continue current supportive measures. Continue as needed BMX liquid, along with budesonide. Aggressive pain management is indicated. 5. Personal history of pancreatic/rectal cancer/depression Complicates care, management, recovery and prognosis. Oncology is following at this time. Continue current supportive measures. Following a discussion with the patient and his family this morning, the decision has been made to transition to comfort care measures only. Levophed and antibiotics will be discontinued. Referral will be placed to hospice care. CODE STATUS has been updated to DNR CC. This note was generated with [employer] dictation software. It may contain incorrect words, spelling, and punctuation that were not noted in checking the note before signing. Code Visit Inpatient E&M: [address] [facility] [place] [facility] L[facility]
[2017-04-22] MEDS: 0.45% Normal Saline 1,000 ML 100 ML IV (05:23)
[2017-04-22 05:56] LABS: Bedside Glucose 410 mg/dL (70-110)
[2017-04-22] MEDS: Octreotide 0.1 MG/ML ML SC (06:41)
[2017-04-22 06:51] LABS: Bedside Glucose 473 mg/dL (70-110)
--- NOTE | 2017-04-22 07:31 | PCM.PN.HOSP ---
Patient Problems: Active and Suspected Problems Neutropenia (Acute) Sepsis (Acute) Thrush of mouth and esophagus (Acute) Thrombocytopenia (Acute) AURELIA (acute kidney injury) (Acute) Dehydration and diarrhea secondary to chemotherapy Subjective: Patient overnight with noted intermittent pauses on telemetry, asymptomatic with intermittent bradycardia, returning to tachycardic state, ongoing pain. Transitioned evening prior to DNR-CCA status, per and patient today decision to transition to DNR-CC status with hospice consultation, focus on comfort measures. Patient overnight febrile, Tm 103. Patient denies chills, nausea, emesis, abdominal pain, chest pain or dyspnea, still ongoing oral pain as noted. Incontinent urine and stool, very weak. Objective: Physical Examination: General: awakens to stimuli, fatigued, falling asleep more readily, intermittently alert, oriented when awake, remains cooperative, more ill appearing than day prior. Skin: pale color, decreased turgor, no icterus, cyanosis. HEENT: AT/NC, EOMI, PERRLA although mildly glazed, sluggish, MM improved but still dry, crusted lesions inside the mouth, still limited ability to open his mouth, thrush improved, but still present. Lungs: Diminished BS BL, > bases, poor effort, no rales, ronchi or wheezing. Heart: Tachycardic with regular rhythm; no gallop, rub audible, port in place. Abdomen: soft, thin habitus, NTTP, ND, hypoactive BS. Extremities: no cyanosis, clubbing, or edema. Neurological: awakens to stimuli, fatigued, falling asleep more readily, intermittently alert, oriented when awake, cognitive function decreased from baseline, more lethargic; pupils equally reactive to light and accomodation but sluggish; cranial nerves II-XII grossly normal, moving all 4 extremities but very weak, fatigued, strength severely globally decreased, appears worsened today. Psychiatric: affect appears lethargic, sedate, no acute evidence of depressive or anxiety feelings. Vitals/I&O's: Vital Signs Temp Pulse Resp BP Pulse Ox 98.7 F 124 H 18 66/51 L 98 04/22/17 07:00 04/22/17 07:00 04/22/17 07:00 04/22/17 07:00 04/22/17 07:00 Oxygen Delivery Method Room Air Weight: 183 lb 6.793 oz Body Mass Index (BMI) 23.7 Intake and Output for Last 24 Hours 04/20/17 04/21/17 04/22/17 23:59 23:59 23:59 Intake Total 4911 / 4911 3847 / 3847 2710 / 2710 Output Total 1220 / 1220 870 / 870 Balance 3691 / 3691 2977 / 2977 2710 / 2710 Microbiology Past 72 Hours 04/19/17 11:00 Stool Enteric Bacteriology - Final 04/19/17 09:15 Urine, Random Urine Culture - Final Culture exhibits no growth. 04/19/17 11:00 Stool C. difficile DNA Amplification - Final Laboratory Results 04/21/17 07:30: WBC 0.8 L*, RBC 5.41, Hgb 17.0 H, Hct 50.6, MCV 93.5, MCH 31.4, MCHC 33.6, RDW 14.9 H, RDW Differential 51.0 H, Plt Count 35 L*, MPV 10.5, Immature Gran % (Auto) 0.000, Neut % (Auto) 2.6 L, Lymph % (Auto) 96.1 H, [place] % (Auto) 1.3, Eos % (Auto) 0.0, Baso % (Auto) 0.0, Absolute Neuts (auto) 0.0 L, Absolute Lymphs (auto) 0.73 L, Total Counted Not Reportable, Differential Comment , Diff Path Review June04/21/17 11:50: Vancomycin Trough 12.0 04/21/17 11:51: POC Glucose 356 H 04/21/17 17:09: POC Glucose 391 H 04/22/17 00:24: POC Glucose 410 H 04/22/17 04:10: PT 19.6 H, INR 1.7, APTT 32.6, Fibrinogen 315 04/22/17 04:10: WBC 0.5 L*, RBC 5.11, Hgb 16.2, Hct 48.3, MCV 94.5 H, MCH 31.7, MCHC 33.5, RDW 15.3 H, RDW Differential 53.4 H, Plt Count 22 L*, MPV 10.5, Immature Gran % (Auto) 0.000, Neut % (Auto) 2.1 L, Lymph % (Auto) 97.9 H, [place] % (Auto) 0.0, Eos % (Auto) 0.0, Baso % (Auto) 0.0, Absolute Neuts (auto) 0.0 L, Absolute Lymphs (auto) 0.47 L, Total Counted Not Reportable, Differential Comment SCAN, Diff Path Review June foll, Platelet Estimate MKD 04/22/17 04:10: Sodium 141, Potassium 4.4, Chloride 115 H, Carbon Dioxide 20.0 L, Anion Gap 6, BUN 36 H, Creatinine 0.96, Estim Creat Clear Calc 88.24, Est GFR (MDRD) Af Amer 102, Est GFR (MDRD) Non-Af 85, BUN/Creatinine Ratio 37.3 H, Glucose 517 H*, Calcium 6.8 L 04/22/17 06:40: POC Glucose 473 H* Current Medications Acetaminophen (Tylenol) 1,000 mg PO Q6H PRN PRN Reason: FEVER Bimatoprost (Lumigan) 1 drop LEFT EYE HS [facility] Last Admin: 04/21/17 22:08 Dose: 1 drop Bisacodyl (Dulcolax) 5 mg PO DAILY PRN PRN PRN Reason: Constipation Budesonide (Pulmicort Aerosol) 0.5 mg INHALATION Q12H.RT [facility] Last Admin: 04/21/17 22:25 Dose: 0.5 mg Calamine/Phenol (Calmoseptine Ointment) 1 applic TOPICAL BID [place] PRN Reason: Protocol Last Admin: 04/21/17 22:07 Dose: 1 applicatio Chlorhexidine Gluconate () 1 each TOPICAL DAILY [facility] Last Admin: 04/21/17 08:16 Dose: 1 each Dextrose (D50w Syringe) 0 gm IV X1 PRN; Protocol PRN Reason: Hypoglycemia Docusate Sodium (Colace) 100 mg PO BID PRN PRN PRN Reason: Constipation Glucagon () 1 mg IM .X1 PRN PRN Reason: Hypoglycemia Fluconazole (Diflucan) 200 mg in 100 mls @ 100 mls/hr IV Q24 [facility] Last Admin: 04/21/17 09:52 Dose: 100 mls/hr Meropenem 1 gm/ Sodium (Chloride) 120 mls @ 33 mls/hr IV Q8 [facility] Last Admin: 04/22/17 05:32 Dose: 33 mls/hr Sodium Chloride () 250 mls @ 15 mls/hr IV .[id number] PRN PRN Reason: SALINE FLUSH Last Admin: 04/21/17 08:16 Dose: 15 mls/hr Sodium Chloride () 250 mls @ 15 mls/hr IV .[id number] PRN PRN Reason: SALINE FLUSH Vancomycin HCl 1,250 mg/ (Sodium Chloride) 275 mls @ 183.333 mls/hr IV Q12H [facility] Last Admin: 04/22/17 00:29 Dose: 183.333 mls/hr Norepinephrine Bitartrate 8 mg (/ Dextrose) 258 mls @ 9.67 mls/hr IV .[id number] [place] PRN Reason: 5 MCG/MIN Last Admin: 04/22/17 04:40 Dose: Not Given Multivitamins 10 ml/ Chromium/Copper/Manganese/Seleni/Zn 1 ml/ Folic Acid 1 mg/Famotidine 40 mg/ Amino Acids/Electrolytes 2,015.2 mls @ 84 mls/hr IV .Q24H [facility] Stop: 04/22/17 15:59 Last Admin: 04/21/17 16:18 Dose: 84 mls/hr Multivitamins 10 ml/ Chromium/Copper/Manganese/Seleni/Zn 1 ml/ Folic Acid 1 mg/Famotidine 40 mg/ Amino Acids/Electrolytes 2,015.2 mls @ 84 mls/hr IV .Q24H [place] Stop: 04/24/17 15:59 Multivitamins 10 ml/ Chromium/Copper/Manganese/Seleni/Zn 1 ml/ Folic Acid 1 mg/Famotidine 40 mg/ Amino Acids/Electrolytes 2,015.2 mls @ 84 mls/hr IV .Q24H [place] Stop: 04/23/17 15:59 Fat Emulsion Intravenous (Intralipid 20%) 500 mls @ 42 mls/hr IV .[id number] [facility] Stop: 04/24/17 03:54 Sodium Chloride () 1,000 mls @ 100 mls/hr IV .Q10H [facility] Last Admin: 04/22/17 05:23 Dose: 100 mls/hr Insulin Aspart (Novolog Flexpen (Bk)) 0 units SC Q6 [place] PRN Reason: Protocol Last Admin: 04/22/17 05:33 Dose: Not Given Insulin Detemir (Levemir (Bk)) 20 units SC QAM [facility] Lidocaine/Diphenhydr/Alum/Mg/Simeth () 10 ml PO Q3H PRN PRN PRN Reason: SORE THROAT Last Admin: 04/19/17 16:50 Dose: 10 ml Magnesium Hydroxide (Milk Of Magnesia) 30 ml PO DAILY PRN PRN PRN Reason: Constipation Morphine Sulfate (Morphine) 4 mg IV Q4H PRN PRN PRN Reason: SEVERE PAIN (6-10/10) Last Admin: 04/21/17 22:07 Dose: 4 mg Octreotide Acetate (Sandostatin) 0.1 mg SC TID [place] Last Admin: 04/22/17 06:41 Dose: 0.1 mg Ondansetron HCl (Zofran Odt) 4 mg PO Q8H PRN PRN PRN Reason: NAUSEA Pharmacy Profile Note () 1 each NOTE NOW [facility] Psyllium Hydrophilic Mucilloid (Metamucil) 1 packet PO DAILY PRN PRN PRN Reason: CONSTIPATION Sodium Chloride () 5 - 30 ml IV UD PRN PRN Reason: SALINE FLUSH Last Admin: 04/21/17 22:08 Dose: 10 ml Tbo-Filgrastim (Granix) 300 mcg SC DAILY [facility] Assessment/Plan Active and Suspected Problems Neutropenia (Acute) Sepsis (Acute) Thrush of mouth and esophagus (Acute) Thrombocytopenia (Acute) AURELIA (acute kidney injury) (Acute) Dehydration and diarrhea secondary to chemotherapy The patient is a 61 y/o M w/ PMHx: Pancreatitic Cancer, Rectal Cancer following w/ Dr. Rosales with initial recent chemotherapy start 04/10/17 with following development severe thrush who presents to the [facility] ED on 04/18/17 w/ history of worsened oral discomfort, poor intake secondary to pain associated, onset diarrhea. (1) Severe Sepsis secondary to Neutropenic fever, Unclear Specific Etiology w/ Thrombocytopenia, Leukopenia w/ Pancreatic CA and Rectal CA w/ Diarrhea, Poor Oral Intake, Mucosal Fluid Losses, Severe Mucositis: Admission CBC w/ WBC 1.7, Hgb 17.1, Plts 53 with ANC 1.1-->04/19/17 CBC w/ WBC 0.3, Hgb 14.9, Plts 34 with ANC 0-->04/20/17 CBC w/ WBC 0.4, Hgb 16.6, Plt 24 with ANC 0, initial BMP w/ BUN/Cr 87/1.71-->04/20/17 BUN/Cr 44/0.89, CXR w/ no acute process, UA unremarkable. Bld cx and UCx pending. Oncology aware, following. Initially admitted to [place], 04/19/17 worsened status with hypotension despite aggressive hydration (6L) and onset fevers thus transitioned to the ICU, maintained on Neutropenic precautions, mag and phos levels obtained and supplemented as needed, maintain I&Os, treat with IV meropenem, vanc and IV diflucan pending cultures. PRN tylenol, anti-emetics, pain regimen. ID consulted and following. ICU physician consulted and following. Admit LA 1.5, repeat 1.1. ECHO obtained w/ 60%, technically difficult study with inability to estimate RVSP. C-diff assay obtained, negative, enteric pathogen stool requested, pending. Likely diarrhea secondary to recent chemotherapy. Will maintain on sandostatin IM as no IV option. Trending coags per Dr. Cheek recommendation. Per Dr. Cheek recommendations transfuse Plts <30,000 given mucositis and oral bleeding. 04/20/17 Plt pack x 1 administered. 04/19/17-04/20/17 MAP decreased, <65, given MAP low-60s, and ongoing mucosal fluid loss, initiated D5W bolus, continued to trend MAP/BP w/ 04/20/17 evening pressors low dose NEP started. 04/20/17 TPN ordered to start. 04/21/17 AM PICC lined accidentally pulled out and was replaced. 04/21/17 PM, noted bradycardic with pauses, occurring intermittently, asymptomatic, discussed status with family and patient again, changed to DNR-CCA status. 04/22/17 AM status discussed again and changed to DNR-CC status. Plan Hospice consultation. Defer further aggressive care and focus on comfort to which patient and were amenable. Will institute hospice comfort measures w/ VS limited, winters placement as directed, mouth care for comfort obtain, allow diet per patient and family discretion, oxygen as needed, PRN morphine, PRN lorazepam. Pending consult with Hospice service to assume care if patient. (2) Acute kidney injury: Secondary to poor oral intake, #1 as noted. Admission BUN/Cr 87/1.71, aggressively hydrated, repeat BUN/Cr 55/0.93-->04/20/17 BUN/Cr 44/0.89, hydration held per ICU given 6L since admission. 04/19/17-04/20/17 MAP decreased, <65, additional D5W ordered, pressors 04/20/17 intermittently needed. Hospice transition 04/22/17 AM, deferred further aggressive regimen. 04/22/17 BUN/Cr 36/0.96, defer further labs. (3) Thrush, Severe Mucositis: Given inability to take oral, initially d/c oral nystatin S/S, maintained on IV diflucan, BMX liquid PRN. Nutrition consulted, NPO status and started on TPN. 04/22/17 DNR-CC status, given this d/c therapies aside from comfort associated regimen and diet restarted at patient discretion. (4) Encephalopathy: Multifactorial, secondary to #1, #2, #3, worsened, more lethargic 04/22/17, patient and family decision for hospice transition as noted. (5) Hyperglycemia: Admission glucose 187, remained elevated, HgbA1c 6.4%, started on q 6 hour accu checks w/ TPN start, worsened with levemir start; however, now transition to hospice, defer further regimen. (6) Hypernatremia: Iatrogenic, admission Na 138, aggressive hydration as noted secondary to hypotension, 04/19/17 repeat Na 146-->04/20/17 Na 150. Started as noted D5W as IVFs required secondary to MAP/BP, ongoing mucosal fluid losses. 04/22/17 Na 141, defer further lab checks with hospice transition. (7) GERD: Famotidine IV-->de-escalate regimen as hospice transition. (8) Severe Protein-Calorie Malnutrition: Evidenced per habitus, weight loss, muscle and fat loss, nutrition consulted, TPN started with pharmacy consult, but held 04/22/17 following transition to hospice. (9) DVT prophylaxis: SCDs, defer chemoprophylaxis with thrombocytopenia. (10) CODE status: DNR-CC status. Again, status discussed per Hospitalist as well as ICU physician this AM. Following discussions about the differences in these status, family and patient requested DNR-CC status with avoidance of further aggressive interventions, focus on comfort measures with pending Hospice evaluation. Advanced Care Planning Face to Face Time: 18 minutes.
[2017-04-22 08:12] LABS: Magnesium 2.2 mg/dL (1.6-2.6); Phosphorus 1.5 mg/dL (2.5-4.9)
--- NOTE | 2017-04-22 09:17 | PCM.DC.SUM ---
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 (3) Thrush, Severe Mucositis (4) Encephalopathy, Multifactorial, secondary to #1, #2, #3, worsened, more lethargic 04/22/17, patient and family decision for hospice transition as noted. (5) Hyperglycemia (6) Hypernatremia, Iatrogenic (7) GERD (8) Severe Protein-Calorie Malnutrition (9) Depression (10) CODE status: DNR-CC status - Secondary Discharge Diagnosis Chronic Problems Pancreatic cancer (Chronic) Rectal cancer (Chronic) Hospital Course and Treatment Hem/Onc Dr. Cheek/[facility] ICU/CC/Pulm Dr. Bowling ID [facility]. Harkins Operations: None Procedures: 2-D Echocardiogram, EKG, PICC line placement, - - Plt transfusion. Summary of Care Provided: The patient is a 61 y/o M w/ PMHx: Pancreatitic Cancer, Rectal Cancer following w/ Dr. Rosales with initial recent chemotherapy start 04/10/17 with following development severe thrush who presented to the [facility] ED on 04/18/17 w/ history of worsened oral discomfort, poor intake secondary to pain associated, onset diarrhea. Admission CBC w/ WBC 1.7, Hgb 17.1, Plts 53 with ANC 1.1-->04/19/17 CBC w/ WBC 0.3, Hgb 14.9, Plts 34 with ANC 0-->04/20/17 CBC w/ WBC 0.4, Hgb 16.6, Plt 24 with ANC 0, initial BMP w/ BUN/Cr 87/1.71-->04/20/17 BUN/Cr 44/0.89, CXR w/ no acute process, UA unremarkable. Bld cx and UCx pending. Oncology aware, following. Initially admitted to [place], 04/19/17 worsened status with hypotension despite aggressive hydration (6L) and onset fevers thus transitioned to the ICU, maintained on Neutropenic precautions, mag and phos levels obtained and supplemented as needed, maintain I&Os, treat with IV meropenem, vanc and IV diflucan with ID, CC/Pulm following. Admit LA 1.5, repeat 1.1. ECHO obtained w/ 60%, technically difficult study with inability to estimate RVSP. C-diff assay, enteric pathogen negative, Bld Cx x 2 NGTD, UCx NG. Likely diarrhea secondary to recent chemotherapy. Maintained initially on per Hem/Onc recommendation sandostatin IM, trended coags, transfused Plts <30,000 given mucositis and oral bleeding w/ 04/20/17 Plt pack x 1 administered. 04/19/17-04/20/17 MAP decreased, <65, given MAP low-60s, and ongoing mucosal fluid loss, initiated D5W bolus and intermittent NEP. 04/20/17 TPN ordered to start. 04/21/17 AM PICC lined accidentally pulled out and was replaced. Admission BUN/Cr 87/1.71, aggressively hydrated, repeat BUN/Cr 55/0.93-->04/20/17 BUN/Cr 44/0.89, hydration held per ICU given 6L since admission. 04/19/17-04/20/17 MAP decreased, <65, additional D5W ordered, pressors 04/20/17 intermittently needed. Hospice transition 04/22/17 AM, deferred further aggressive regimen. 04/22/17 BUN/Cr 36/0.96, defer further labs. Given inability to take oral, initially d/c oral nystatin S/S, maintained on IV diflucan, BMX liquid PRN. Nutrition consulted, NPO status and started on TPN. 04/22/17 DNR-CC status, given this d/c therapies aside from comfort associated regimen and diet restarted at patient discretion. Admission glucose 187, remained elevated, HgbA1c 6.4%, started on q 6 hour accu checks w/ TPN start, worsened with levemir start; however, transitioned to hospice, defered further regimen. Hypernatremia, Iatrogenic, admission Na 138, aggressive hydration as noted secondary to hypotension, 04/19/17 repeat Na 146-->04/20/17 Na 150-->04/22/17 Na 141, deferred further lab checks with hospice transition. 04/21/17 PM, noted bradycardic with pauses, occurring intermittently, asymptomatic, discussed status with family and patient again, changed to DNR-CCA status. 04/22/17 AM status discussed again and changed to DNR-CC status. Hospice consulted given patient and family decision for DNR-CC status, following instituted hospice comfort measures w/ VS limited, winters placement if desired, mouth care for comfort obtain, allowed diet per patient and family discretion, oxygen as needed, PRN morphine, PRN lorazepam with Hospice service to assume care if patient. Home Medications: Medications to take at Discharge Acetaminophen [Tylenol Extra Strength] 1,000 mg PO Q6H PRN 04/18/17 Docusate Sodium [Colace] 100 mg PO BID PRN PRN 04/18/17 Nystatin 5 ml PO 4X/DAY PRN 04/18/17 Olanzapine [Zyprexa] 10 mg PO QHS 04/18/17 Ondansetron HCl [Zofran] 4 mg PO Q8H PRN PRN 04/18/17 Oxycodone [Oxyir] 1 - 2 tab PO Q4H PRN PRN 04/18/17 Bimatoprost [Lumigan Opthalmic] 1 drop LEFT EYE QHS 04/20/17 Primary Care Physician: Mukesh Sweet MD [Primary Care Provider] - Disposition: Hospice Medical Facility Minutes spent on discharge:: 35 Patient Condition:: Critical Meaningful Use Info Meaningful Use Diagnoses (Choose all that apply): None applicable Code Visit Inpatient E&M: 57705 Disch Hosp Procedures: 32301 Advncd Care Plan 30 Min - See progress note for hospice status transition.
--- NOTE | 2017-04-22 09:33 | DS.PCM_ITS ---
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 (3) Thrush, Severe Mucositis (4) Encephalopathy, Multifactorial, secondary to #1, #2, #3, worsened, more lethargic 04/22/17, patient and family decision for hospice transition as noted. (5) Hyperglycemia (6) Hypernatremia, Iatrogenic (7) GERD (8) Severe Protein-Calorie Malnutrition (9) Depression (10) CODE status: DNR-CC status - Secondary Discharge Diagnosis Chronic Problems Pancreatic cancer (Chronic) Rectal cancer (Chronic) Hospital Course and Treatment Hem/Onc Dr. Cheek/[facility] ICU/CC/Pulm Dr. Bowling ID [facility]. Harkins Operations: None Procedures: 2-D Echocardiogram, EKG, PICC line placement, - - Plt transfusion. Summary of Care Provided: The patient is a 61 y/o M w/ PMHx: Pancreatitic Cancer, Rectal Cancer following w/ Dr. Rosales with initial recent chemotherapy start 04/10/17 with following development severe thrush who presented to the [facility] ED on 04/18/17 w/ history of worsened oral discomfort, poor intake secondary to pain associated, onset diarrhea. Admission CBC w/ WBC 1.7, Hgb 17.1, Plts 53 with ANC 1.1-->04/19/17 CBC w/ WBC 0.3, Hgb 14.9, Plts 34 with ANC 0-->04/20/17 CBC w/ WBC 0.4, Hgb 16.6, Plt 24 with ANC 0, initial BMP w/ BUN/Cr 87/1.71-->04/20/17 BUN/Cr 44/0.89, CXR w / no acute process, UA unremarkable. Bld cx and UCx pending. Oncology aware, following. Initially admitted to [place], 04/19/17 worsened status with hypotension despite aggressive hydration (6L) and onset fevers thus transitioned to the ICU , maintained on Neutropenic precautions, mag and phos levels obtained and supplemented as needed, maintain I&Os, treat with IV meropenem, vanc and IV diflucan with ID, CC/Pulm following. Admit LA 1.5, repeat 1.1. ECHO obtained w/ 60%, technically difficult study with inability to estimate RVSP. C-diff assay, enteric pathogen negative, Bld Cx x 2 NGTD, UCx NG. Likely diarrhea secondary to recent chemotherapy. Maintained initially on per Hem/Onc recommendation sandostatin IM, trended coags, transfused Plts <30,000 given mucositis and oral bleeding w/ 04/20/17 Plt pack x 1 administered. 04/19/17-04/20/17 MAP decreased, <65 , given MAP low-60s, and ongoing mucosal fluid loss, initiated D5W bolus and intermittent NEP. 04/20/17 TPN ordered to start. 04/21/17 AM PICC lined accidentally pulled out and was replaced. Admission BUN/Cr 87/1.71, aggressively hydrated, repeat BUN/Cr 55/0.93-->04/20/17 BUN/Cr 44/0.89, hydration held per ICU given 6L since admission. 04/19/17-04/20/17 MAP decreased, <65, additional D5W ordered, pressors 04/20/17 intermittently needed. Hospice transition 04/22/17 AM, deferred further aggressive regimen. 04/22/17 BUN/Cr 36/0.96 , defer further labs. Given inability to take oral, initially d/c oral nystatin S/S, maintained on IV diflucan, BMX liquid PRN. Nutrition consulted, NPO status and started on TPN. 04/22/17 DNR-CC status, given this d/c therapies aside from comfort associated regimen and diet restarted at patient discretion. Admission glucose 187, remained elevated, HgbA1c 6.4%, started on q 6 hour accu checks w/ TPN start, worsened with levemir start; however, transitioned to hospice, defered further regimen. Hypernatremia, Iatrogenic, admission Na 138, aggressive hydration as noted secondary to hypotension, 04/19/17 repeat Na 146--> 04/20/17 Na 150-->04/22/17 Na 141, deferred further lab checks with hospice transition. 04/21/17 PM, noted bradycardic with pauses, occurring intermittently, asymptomatic, discussed status with family and patient again, changed to DNR- CCA status. 04/22/17 AM status discussed again and changed to DNR-CC status. Hospice consulted given patient and family decision for DNR-CC status, following instituted hospice comfort measures w/ VS limited, winters placement if desired, mouth care for comfort obtain, allowed diet per patient and family discretion, oxygen as needed, PRN morphine, PRN lorazepam with Hospice service to assume care if patient. Home Medications: Medications to take at Discharge Acetaminophen [Tylenol Extra Strength] 1,000 mg PO Q6H PRN 04/18/17 Docusate Sodium [Colace] 100 mg PO BID PRN PRN 04/18/17 Nystatin 5 ml PO 4X/DAY PRN 04/18/17 Olanzapine [Zyprexa] 10 mg PO QHS 04/18/17 Ondansetron HCl [Zofran] 4 mg PO Q8H PRN PRN 04/18/17 Oxycodone [Oxyir] 1 - 2 tab PO Q4H PRN PRN 04/18/17 Bimatoprost [Lumigan Opthalmic] 1 drop LEFT EYE QHS 04/20/17 Primary Care Physician: Mukesh Sweet MD [Primary Care Provider] - Disposition: Hospice Medical Facility Minutes spent on discharge:: 35 Patient Condition:: Critical Meaningful Use Info Meaningful Use Diagnoses (Choose all that apply): None applicable Code Visit Inpatient E&M: 16358 Disch Hosp Procedures: 85177 Advncd Care Plan 30 Min - See progress note for hospice status transition.
--- NOTE | 2017-04-22 11:30 | NURSING ---
pts met w/talent assistant. Awaiting principal administrative clerk
--- NOTE | 2017-04-22 13:00 | NURSING ---
family refused assess. awaiting hospice
--- NOTE | 2017-04-22 14:13 | NURSING ---
warranty manager present w/family in pt room.
--- NOTE | 2017-04-22 14:29 | NURSING ---
transfer to hospice, awaiting transport
[2017-04-22] MEDS: 0.9% NaCl Peripheral Flush Adult/Peds IV (16:21)
[2017-04-24 13:15] LABS: Pathologist Review Reviewed
[2017-04-24 13:18] LABS: Pathologist Review Reviewed
== END 2017-04-22 17:05 | disposition hospice, inpatient (51) | DRG 871 ==
LOC: ED 14:13 → MS3 16:05 → ICU 04-20 07:01 → MS3 04-20 07:01
PROVIDERS: Internal Medicine Critical Care Medicine; Internal Medicine Infectious Disease; Physician Assistant; Admitting Provider Internal Medicine; Emergency Provider Emergency Medicine; Family Provider Family Medicine; PCP Family Medicine; Visit Provider Family Medicine
DX: A41.9 Sepsis, unspecified organism (principal); G93.40 Encephalopathy, unspecified; E43 Unspecified severe protein-calorie malnutrition; N17.9 Acute kidney failure, unspecified; K52.1 Toxic gastroenteritis and colitis; C25.2 Malignant neoplasm of tail of pancreas; D70.9 Neutropenia, unspecified; B37.0 Candidal stomatitis; D69.59 Other secondary thrombocytopenia; B37.81 Candidal esophagitis; C20 Malignant neoplasm of rectum; E87.0 Hyperosmolality and hypernatremia; E86.0 Dehydration; F32.9 Major depressive disorder, single episode, unspecified; T45.1X5A Adverse effect of antineoplastic and immunosuppressive drugs, initial encounter; K21.9 Gastro-esophageal reflux disease without esophagitis; Z68.23 Body mass index [BMI] 23.0-23.9, adult; Z66 Do not resuscitate; Z51.5 Encounter for palliative care; Z87.891 Personal history of nicotine dependence; R50.81 Fever presenting with conditions classified elsewhere
CPT/HCPCS: 31720; 36415; 36569; 36591; 71045; 80048; 80053; 80202; 81001; 82962; 83036; 83605; 83735; 84100; 84484; 85025; 85384; 85610; 85730; 86644; 86900; 86965; 87040; 87086; 87177; 87209; 87493; 87506; 87641; 92507; 92526; 93005; 93306; 94640; 97162; 97165; 97802; 97803; 99282; 99406; J2185; J7030; J7050; P9037; Q9957; A4216; C8929; J2354; J3490